=== PATIENT | male | born 1955 | race Caucasian/White ===

== ENCOUNTER 2017-12-13 09:19 | Emergency (ER) | payer OTHER, SELFPAY ==
[2017-12-13 09:20] VITALS: BP 153/97; PULSE 84; RESP 16; TEMP 37.3; O2SAT 95; BMI 16.3
--- NOTE | 2017-12-13 09:48 | RAD_ITS ---
STUDY: X-RAY CHEST REASON FOR EXAM: Male, 62 years old. Cough and tachycardia. TECHNIQUE: PA and lateral views of the chest. COMPARISON: None. FINDINGS: EKG electrodes are seen. Hyperinflation. Decreased bilateral bronchovascular markings suggestive of emphysematous changes. There is no demonstrated pleural abnormality. Normal size heart. Normal mediastinum and dennis. Normal visualized pulmonary arteries. Normal visualized aortic arch and descending thoracic aorta. There are degenerative changes of the visualized thoracic spine. Healed left rib fractures. There is no demonstrated abnormality of the visualized soft tissue structures of the upper abdomen. RAD/Chest PA and Lateral IMPRESSION: Hyperinflation. No acute infiltrate is seen. Electronically Signed: Sajan Samuels MD at 10:44 EST Tel [phone], Service support ,
--- NOTE | 2017-12-13 09:50 | US_ITS ---
STUDY: SCROTUM ULTRASOUND REASON FOR EXAM: Male, 62 years old. Swelling in the left testicle. TECHNIQUE: Ultrasound evaluation of the scrotum was performed with color Doppler and static williamson-scale imaging. COMPARISON: None. FINDINGS: RIGHT TESTICLE INTRATESTICULAR: There is a normal size of the right testicle. The right testicle measures 4.7 cm x 2.7 cm x 2.2 cm. There is a homogenous echotexture. There is normal arterial and normal venous vascularity. There is no demonstrated right testicular mass or cyst. EXTRATESTICULAR: The epididymis is normal in size. The epididymis head measures 0.8 cm x 1.0 cm x 0.7 cm. There is normal vascularity of the epididymis. There is no demonstrated epididymal cystic structure. There is no demonstrated hydrocele. There is no demonstrated varicocele. There is no demonstrated extratesticular mass or cyst. LEFT TESTICLE INTRATESTICULAR: There is a normal size of the left testicle. The left testicle measures 5.3 cm x 2.7 cm x 2.0 cm. There is a homogenous echotexture. There is normal arterial and normal venous vascularity. There is no demonstrated left testicular mass or cyst. EXTRATESTICULAR: The epididymis is normal in size. The epididymis head measures 1.1 cm. There is normal vascularity of the epididymis. There is a well-defined cystic structure within the epididymis, without internal echoes, consistent with an epididymal cyst. This measures 1.1 cm x 1 cm x 0.7 cm. There is a large hydrocele. There is no demonstrated varicocele. There is no demonstrated extratesticular mass or cyst. US/Testicular with Arterial Flow IMPRESSION: Large left hydrocele. Small cysts in the left epididymis. Electronically Signed: Sajan Samuels MD at 11:32 EST Tel [phone], Service support ,
--- NOTE | 2017-12-13 09:58 | EKG12_ITS ---
Test Reason : SOB Blood Pressure : / mmHG Vent. Rate : 071 BPM Atrial Rate : 071 BPM P-R Int : 152 ms QRS Dur : 108 ms QT Int : 366 ms P-R-T Axes : 077 107 067 degrees QTc Int : 397 ms Normal sinus rhythm J point elevation, consider pericarditis Abnormal ECG Confirmed by SUELLEN KNIGHT ([id number]), video effects editor CARLOS GONZALES ([id number]) on 12/17/2017 1:13:13 PM Referred By: KAE Confirmed By:SUELLEN KNIGHT
--- NOTE | 2017-12-13 09:59 | ED.VISSUMM ---
- ER Visit Summary Date of Service: 12/13/17 Chief Complaint: Elevated blood sugar History of Present Illness: The patient is a 62 M who states that last week he was feeling poorly with symptomatology of cough myalgias and fatigue. He states over the weekend it worsened and he had to come home from work on Saturday. Today evening had nausea vomiting. Saturday he went to an urgent care had blood work and a chest x-ray performed but did not get the results and was placed on prednisone and albuterol. Patient went to a follow-up appointment today with nurse practitioner and was told his blood sugar was greater than 400 and he needed to come to the emergency department. He notes left scrotal swelling for the past several months. He denies pain with it. He notes a 25 pound weight loss over the same timeframe. He notes polyuria polydipsia. Notes constipation over the past few days. Unknown fever. Physical Examination: Blood pressure 153/97 temperature 99.2 heart rate of 84 respirations are 16 pulse ox is 95% on room air Gen: Well-nourished well-developed patient appears fatigued and frail Head: Normocephalic atraumatic Eyes: Perrl EOMI ENT: TMs clear no rhinorrhea dry mucous membranes Neck: Supple no lymphadenopathy no JVD nontender CVS: Regular rate rhythm no murmurs normal S1-S2 Respiratory: No distress clear to auscultation bilaterally chest nontender Abdomen: Soft nontender nondistended normal bowel sounds no masses : There is left scrotal swelling. It is nontender. There is no obvious inguinal hernia. Back: Nontender Extremity: Nontender no edema Skin: Normal color no rash Neuro: alert orientated ?3 CN II-XII intact normal strength sensation reflexes gait cerebellar Psych: Normal affect normal mood Test Results: Count is elevated 20 point H which I suspect is partially due to prednisone. Glucose is 317. No anion gap and ketones are negative. Lactic acid 1.4. Troponin negative. EKG sinus at a rate of 71. Chest x-ray showed chronic changes and COPD. Scrotal ultrasound demonstrates a large left hydrocele. CT of the chest no acute disease. Emergency Department Course and Treatment: Repeat temp shows the patient to be afebrile. Patient will be discharged home. I did work with him to help arrange for early follow-up. I spoke with Dr. Dada Kulkarni is next on the no doc list. They have arranged to see the patient on Saturday. He has been resting comfortably. Patient will be started on metformin and Precose. He is to continue his antibiotic as an inhaler. I will add in doxycycline. He will need to also follow-up with urology. Impression: 1. COPD exacerbation 2. Type 2 diabetes mellitus 3. Left hydrocele This note was generated with [employer] dictation software. It may contain incorrect words, spelling, and punctuation that were not noted in review of the chart prior to signing ED Disposition - Plan for ED Patient: Disposition: Home or Assisted Living Chief Complaint: Hyperglycemia Instructions: ED Hyperglycemia Diabetic, ED Hydrocele Type Not Specified Prescriptions: Doxycycline 100 mg PO BID #20 cap Metformin HCl 500 mg PO BID #90 tab Acarbose [Precose] 25 mg PO TID #90 tab Referrals: Dada Kulkarni MD [STAFF PHYSICIAN] - Keep [facility] appointment Care Physician,No Primary [Primary Care Provider] - Leander Arce MD [STAFF PHYSICIAN] - (Call today to arrange urology follow-up for the hydrocele and your scrotum)
[2017-12-13] MEDS: 0.9% Normal Saline 1,000 ML 1000 ML IV (10:12)
[2017-12-13 10:20] LABS: Absolute Lymphocyte Count 1.41 X10^3/ul (0.83-4.51); Absolute Neutrophil Count 18.1 X10^3/uL (2.0-7.7); Basophil# 0.03 X10^3/uL; Basophil% 0.1 % (0-1); Eosinophil# 0.02 X10^3/uL; Eosinophils% 0.1 % (0-5); Hematocrit 44.4 % (40-54); Lymphocyte # 1.41 X10^3/ul (4.0); Lymphocyte % 6.8 % (19-41); Mean Corp Hgb Conc 33.8 g/gl (32-36); Mean Corpuscular Hgb 32.1 pg (27.0-32.0); Mean Corpuscular Volume 94.9 fL (80-94); Mean Platelet Vol. 9.9 fl (6.2-12.0); Monocyte# 0.97 X10^3/uL; Monocyte% 4.7 % (0-10); Neutrophil # 18.12 X10^3/uL (2.7-7.7); Neutrophil % 87.1 % (47-70); Platelet Count 413 K/mm3 (150-450); RBC Distribution Width CV 13.8 % (11.6-14.6); RBC Distribution Width SD 47.1 fl (35.1-43.9); Red Blood Count 4.68 M/mm3 (4.6-6.2); White Blood Count 20.8 K/mm3 (4.4-11.0)
[2017-12-13 10:21] LABS: Differential Indicated SCAN CRITERIA MET; POSITIVE COUNT NO; POSITIVE DIFFERENTIAL NO; POSITIVE MORPHOLOGY YES
[2017-12-13 10:28] LABS: Prothrombin Time (Protime)PT. 12.9 SECONDS (11.7-14.9)
[2017-12-13 10:29] LABS: Partial Thromboplast Time 30.3 Seconds (24.1-36.2)
[2017-12-13 10:37] LABS: ALB/GLOB Ratio 0.5 RATIO (0.9-2.4); AST(SGOT) 7 U/L (15-37); Alanine Aminotransfer ALT/SGPT 17 U/L (16-61); Albumin, Serum 2.8 g/dL (3.2-5.0); Alkaline Phosphatase 118 U/L (45-117); Anion Gap 7 (5-15); BUN 22 mg/dL (7-18); BUN/Creat Ratio 21.8 RATIO (10-20); Calcium,Total 9.4 mg/dL (8.5-10.1); Chloride 94 mmol/L (98-107); Creatinine, Serum 1.01 mg/dL (0.70-1.30); EST Glomerular Filtration Rate 80 mL/min (>60); Est Glom Filt Rate - Afr Amer 97 mL/min (>60); Estimated Creatinine Clearance 56.89 ml/min; Globulin 5.1 g/dL (2.2-4.2); Glucose 317 mg/dL (74-106); Lipase 329 U/L (73-393); Potassium 4.2 mmol/L (3.5-5.1); Protein, Total 7.9 g/dL (6.4-8.2); Sodium Level 133 mmol/L (136-145)
[2017-12-13 10:44] LABS: Lactic Acid 1.4 mmol/L (0.4-2.0)
[2017-12-13 11:06] LABS: Reactive Lymphocyte RARE
--- NOTE | 2017-12-13 11:38 | CT_ITS ---
STUDY: CTA CHEST REASON FOR EXAM: Male, 62 years old. Shortness of breath. Newly diagnosed diabetes. RADIATION DOSAGE (If Supplied By Facility): CTDIvol = ( 6.75 ) mGy, DLP = ( 199.34 ) mGycm TECHNIQUE: The examination was performed with the intravenous administration of 75CC ml of Isovue 370 contrast material. Post-processing of the angiographic images was performed, with multiplanar reformation and 3D reconstruction. Individualized dose optimization techniques were used for this CT. COMPARISON: None. FINDINGS: Normal enhancement of the main pulmonary artery and right and left pulmonary arteries. Normal enhancement of the bilateral peripheral pulmonary arteries. There is no demonstrated pulmonary embolism. There is atherosclerotic calcification of the aortic arch with tortuosity. There is no demonstrated aortic dissection. There are calcifications of the coronary arteries. Normal mediastinum. Normal hilar regions. Normal visualized trachea and bronchi. Hyperinflation. Decreased bronchovascular markings suggestive of a emphysematous changes. Minimal increased markings in the posterior medial segment of the right lower lobe suggestive of scarring. Normal pleura. Normal chest wall structures. There are degenerative changes of thoracic spine. Multiple hypodense nodular masses are seen in the spleen. These are not typical cysts. Clinical correlation is recommended. CT/CTA Chest W/WO Contrast IMPRESSION: Hyperinflation and emphysematous changes. Findings suggest some mild scarring at the right lung base. Multiple hypodense nodular seen in the spleen. Clinical correlation is recommended. Electronically Signed: Sajan Samuels MD at 13:17 EST Tel [phone], Service support ,
[2017-12-13] MEDS: 0.9% Normal Saline 1,000 ML 150 ML IV (11:57)
[2017-12-13 12:05] LABS: Bacteria 0 SEEN /hpf (None Seen); Mucous, Urine 0 SEEN /hpf (<or=2+); Red Blood Cells-Urine 0 SEEN /hpf (0-5); Squamous Epithelial Cells - UA 0 SEEN /hpf (0-5); White Blood Cells 0 SEEN /hpf (0-5)
[2017-12-13 12:24] VITALS: BP 157/87; PULSE 68; RESP 21; O2SAT 98
[2017-12-13 12:27] LABS: Color, Urine Yellow (Yellow); Glucose, Dipstick 1000 mg/dl (Normal); Ketone-Dipstick 5 mg/dl (Negative); Leukocyte Esterase-Dipstick Negative /ul (Negative); Nitrite-Dipstick Negative (Negative); Occult Blood-Urine Negative /ul (Negative); Protein-Dipstick 30 mg/dl (Negative); Specific Gravity, Urine 1.015 (1.002-1.030); Urine Bilirubin Dipstick Negative (Negative); Urine Clarity Clear (Clear); Urine Urobilinogen Normal (Normal)
[2017-12-13 15:21] VITALS: BP 150/94; PULSE 69; RESP 18; O2SAT 95
== END 2017-12-13 15:31 | disposition home or self-care (01) ==
PROVIDERS: Emergency Provider Emergency Medicine
DX: E11.9 Type 2 diabetes mellitus without complications (principal); N43.3 Hydrocele, unspecified; J44.1 Chronic obstructive pulmonary disease with (acute) exacerbation; Z72.0 Tobacco use; Z79.51 Long term (current) use of inhaled steroids; Z79.52 Long term (current) use of systemic steroids
CPT/HCPCS: 71046; 71275; 76870; 80053; 81001; 82009; 83605; 83690; 83735; 84484; 85025; 85610; 85730; 87804; 93005; 93976; 96360; 96361; 99283; J7030; Q9967

== ENCOUNTER → 2017-12-16 15:51 | Outpatient (CLI) | payer OTHER, SELFPAY ==
[2017-12-16 17:46] LABS: Absolute Neutrophil Count 10.5 X10^3/uL (2.0-7.7); Basophil# 0.04 X10^3/uL; Basophil% 0.3 % (0-1); Eosinophil# 0.15 X10^3/uL; Eosinophils% 1.1 % (0-5); Hematocrit 44.9 % (40-54); Hemoglobin 14.8 g/dl (13.0-16.5); Lymphocyte % 14.4 % (19-41); Mean Corpuscular Hgb 31.6 pg (27.0-32.0); Mean Corpuscular Volume 95.9 fL (80-94); Mean Platelet Vol. 10.8 fl (6.2-12.0); Monocyte# 1.06 X10^3/uL; Monocyte% 7.6 % (0-10); Neutrophil # 10.52 X10^3/uL (2.7-7.7); Platelet Count 384 K/mm3 (150-450); RBC Distribution Width SD 49.3 fl (35.1-43.9); Red Blood Count 4.68 M/mm3 (4.6-6.2); White Blood Count 13.9 K/mm3 (4.4-11.0)
[2017-12-16 17:56] LABS: Hemoglobin A1c 8.6 % (4.2-6.3); POSITIVE COUNT NO; POSITIVE DIFFERENTIAL NO; POSITIVE MORPHOLOGY NO
[2017-12-16 18:09] LABS: ALB/GLOB Ratio 0.6 RATIO (0.9-2.4); AST(SGOT) 13 U/L (15-37); Alanine Aminotransfer ALT/SGPT 19 U/L (16-61); Albumin, Serum 2.9 g/dL (3.2-5.0); Alkaline Phosphatase 114 U/L (45-117); Anion Gap 8 (5-15); BUN 25 mg/dL (7-18); BUN/Creat Ratio 25.6 RATIO (10-20); Calcium,Total 9.2 mg/dL (8.5-10.1); Chloride 94 mmol/L (98-107); Creatinine, Serum 0.98 mg/dL (0.70-1.30); EST Glomerular Filtration Rate 83 mL/min (>60); Est Glom Filt Rate - Afr Amer 101 mL/min (>60); Globulin 4.6 g/dL (2.2-4.2); Glucose 187 mg/dL (74-106); Potassium 4.1 mmol/L (3.5-5.1); Protein, Total 7.5 g/dL (6.4-8.2); Sodium Level 132 mmol/L (136-145); Thyroid Stim Hormone (TSH) 3.01 uIU/mL (0.358-3.74)
[2017-12-16 18:23] LABS: Erythrocyte Sedimentation Rate 13 mm/hr (0-20)
[2017-12-18 11:45] LABS: AFP, Tumor Marker 4.7 ng/mL (0.0-8.3)
== END ==
PROVIDERS: Family Provider Family Medicine; PCP Family Medicine; Visit Provider Family Medicine
DX: E11.9 Type 2 diabetes mellitus without complications (principal); R16.1 Splenomegaly, not elsewhere classified
CPT/HCPCS: 36415; 80053; 82105; 83036; 84443; 85025; 85652

== ENCOUNTER → 2017-12-23 15:41 | Outpatient (CLI) | payer OTHER, SELFPAY ==
--- NOTE | 2017-12-23 15:50 | VDLE_ITS ---
Reason For Study: LEG PAIN AND SWELLING RIGHT LEFT GSV is normal. CFV is compressible, spontaneous, phasic, CFV is compressible, spontaneous, phasic, competent, and demonstrates normal competent and demonstrates normal augmentation. augmentation. FV is compressible, spontaneous, phasic, competent and demonstrates normal augmentation. POP V is compressible, spontaneous, phasic, competent and demonstrates normal augmentation. T/P Trunk is compressible. PTV is compressible. RT PerV is compressible. Procedure Exam performed in department. A preliminary report was called and/or faxed to Dr. Kulkarni. Interpretation Summary Deep veins of the right lower extremity are patent and compressible segmentally. There is no evidence of right lower extremity deep vein thrombosis. Valvular competence appears intact within the proximal deep venous system on the right . The right greater saphenous vein appears patent and compressible segmentally. Ordering Physician: Dada Kulkarni Referring Physician: Dada Kulkarni Performed By: Judy Church RVT
== END ==
PROVIDERS: Family Provider Family Medicine; PCP Family Medicine; Visit Provider Family Medicine
DX: I73.9 Peripheral vascular disease, unspecified (principal)
CPT/HCPCS: 93971

== ENCOUNTER → 2017-12-24 12:34 | Outpatient (CLI) | payer OTHER, SELFPAY ==
[2017-12-24 15:11] LABS: ALB/GLOB Ratio 0.5 RATIO (0.9-2.4); AST(SGOT) 13 U/L (15-37); Alanine Aminotransfer ALT/SGPT 12 U/L (16-61); Albumin, Serum 2.6 g/dL (3.2-5.0); Alkaline Phosphatase 94 U/L (45-117); Anion Gap 9 (5-15); BUN 17 mg/dL (7-18); BUN/Creat Ratio 20.2 RATIO (10-20); Calcium,Total 9.4 mg/dL (8.5-10.1); Chloride 96 mmol/L (98-107); Creatinine, Serum 0.84 mg/dL (0.70-1.30); EST Glomerular Filtration Rate 99 mL/min (>60); Est Glom Filt Rate - Afr Amer 120 mL/min (>60); Globulin 5.3 g/dL (2.2-4.2); Glucose 153 mg/dL (74-106); Lipase 239 U/L (73-393); PSA,Total - Annual Screen 1.13 ng/mL (0.00-4.00); Protein, Total 7.9 g/dL (6.4-8.2); Sodium Level 134 mmol/L (136-145)
[2017-12-24 15:39] LABS: Absolute Lymphocyte Count 1.41 X10^3/ul (0.83-4.51); Absolute Neutrophil Count 7.4 X10^3/uL (2.0-7.7); Basophil# 0.02 X10^3/uL; Basophil% 0.2 % (0-1); Eosinophil# 0.05 X10^3/uL; Eosinophils% 0.5 % (0-5); Hematocrit 40.7 % (40-54); Hemoglobin 13.4 g/dl (13.0-16.5); Lymphocyte # 1.41 X10^3/ul (4.0); Lymphocyte % 14.8 % (19-41); Mean Corp Hgb Conc 32.9 g/gl (32-36); Mean Corpuscular Hgb 31.8 pg (27.0-32.0); Mean Corpuscular Volume 96.7 fL (80-94); Monocyte# 0.64 X10^3/uL; Monocyte% 6.7 % (0-10); Neutrophil # 7.42 X10^3/uL (2.7-7.7); Neutrophil % 77.7 % (47-70); Platelet Count 329 K/mm3 (150-450); RBC Distribution Width CV 13.6 % (11.6-14.6); RBC Distribution Width SD 48.3 fl (35.1-43.9); Red Blood Count 4.21 M/mm3 (4.6-6.2); White Blood Count 9.6 K/mm3 (4.4-11.0)
[2017-12-24 15:48] LABS: POSITIVE COUNT NO; POSITIVE DIFFERENTIAL NO; POSITIVE MORPHOLOGY NO
[2017-12-26 09:23] LABS: Carcinoembryonic Antigen 5.6 ng/mL (0.0-4.7)
== END ==
PROVIDERS: Family Provider Family Medicine; PCP Family Medicine; Visit Provider Family Medicine
DX: R10.30 Lower abdominal pain, unspecified (principal)
CPT/HCPCS: 36415; 80053; 82378; 83690; 84153; 85025; 86140; G0103

== ENCOUNTER 2017-12-30 13:35 | Emergency (ER) | payer OTHER, SELFPAY ==
[2017-12-30 13:37] VITALS: BP 136/84; PULSE 103; RESP 20; TEMP 35.1; O2SAT 95; BMI 16.7
--- NOTE | 2017-12-30 14:48 | CT_ITS ---
STUDY: CT ABDOMEN AND PELVIS WITH CONTRAST REASON FOR EXAM: Male, 62 years old. A nausea vomiting one week left testicular swelling RADIATION DOSAGE (If Supplied By Facility): CTDIvol = ( 8.79 ) mGy, DLP = ( 579.44 ) mGycm TECHNIQUE: Transaxial images were obtained from the dome of the diaphragm to the symphysis pubis without oral contrast. 100 ml of Isovue 300 contrast was administered. Sagittal and coronal images were reconstructed. Individualized dose optimization techniques were used for this CT. COMPARISON: December 13 2017 left testicular scrotal ultrasound. FINDINGS: The visualized lung bases are unremarkable. The visualized portions of the heart are within normal limits. There is a small well-circumscribed cystic structure within the left hepatic lobe measuring 7.7 mm. There is mild wall thickening of the gallbladder or pericholecystic fluid. Stones are not definitively seen. There is a distended appearance of the common duct measuring 9.7 mm abnormal for patient's age. There is a partially exophytic cystic structure in the spleen appears to be partially calcified between the spleen and the kidney measuring 2.1 x 2.4 cm stable since prior study. There is stable cystic structures within the spleen measuring up to 2.8 x 2.1 cm. Normal pancreas. There is mild distention of the pancreatic duct. This is partially seen on the prior study CT angiogram chest. Normal right kidney. Normal left kidney. There is a minimal hiatal hernia. Stomach is relatively fluid filled. There is minimal wall thickening of the stomach allowing for peristalsis. There is a mildly thick-walled compressed appearance of the duodenum. There is abundant stool in the colon from the cecum to the rectum. The appendix is visualized and appears normal. Aorta is partially calcified. Normal inferior vena cava. Normal retroperitoneum. Normal urinary bladder. There is partial calcification of borderline enlargement of the prostate. A large amount of fluid within the left side of the scrotum measuring at least 9.3 x 7.6 cm. This was also seen on the recent prior study. There is no significant fluid tracking in the left inguinal canal. Normal abdominal wall. There is degenerative change in the thoracolumbar spine most significant at the level of L3-L4 L4-L5 and L5-S1 where there is broad disc bulge and moderate neural foraminal narrowing. There is mild central stenosis. CT/Abdomen/Pelvis WITH Contrast IMPRESSION: There is fluid adjacent to the gallbladder with wall thickening. Common duct distention up to 9.3 mm. Consider follow-up ultrasound to exclude cholecystitis. Stable multiple splenic cysts. Which can be associated with benign occurrence possible history of trauma which is thought to be less likely or due to prior history of infection. Benign-appearing hepatic cyst Significant constipation. Visualized large hydrocele on the left. No visualized appendicitis. Degenerative change throughout the lumbar spine. Electronically Signed: Mercedes Pickard MD at 17:10 EDT Tel , Service support ,
[2017-12-30 15:09] LABS: Absolute Lymphocyte Count 1.86 X10^3/ul (0.83-4.51); Absolute Neutrophil Count 10.2 X10^3/uL (2.0-7.7); Basophil# 0.03 X10^3/uL; Basophil% 0.2 % (0-1); Eosinophil# 0.18 X10^3/uL; Eosinophils% 1.3 % (0-5); Hematocrit 35.3 % (40-54); Lymphocyte # 1.86 X10^3/ul (4.0); Lymphocyte % 13.8 % (19-41); Mean Corpuscular Hgb 32.5 pg (27.0-32.0); Mean Corpuscular Volume 95.7 fL (80-94); Mean Platelet Vol. 9.7 fl (6.2-12.0); Monocyte# 1.08 X10^3/uL; Neutrophil # 10.15 X10^3/uL (2.7-7.7); Neutrophil % 75.7 % (47-70); POSITIVE COUNT NO; POSITIVE DIFFERENTIAL NO; POSITIVE MORPHOLOGY NO; Platelet Count 349 K/mm3 (150-450); RBC Distribution Width CV 13.2 % (11.6-14.6); RBC Distribution Width SD 44.4 fl (35.1-43.9); Red Blood Count 3.69 M/mm3 (4.6-6.2); White Blood Count 13.4 K/mm3 (4.4-11.0)
[2017-12-30] MEDS: 0.9% Normal Saline 1,000 ML 125 ML IV (15:12)
[2017-12-30 15:27] LABS: ALB/GLOB Ratio 0.6 RATIO (0.9-2.4); AST(SGOT) 10 U/L (15-37); Alanine Aminotransfer ALT/SGPT 12 U/L (16-61); Albumin, Serum 2.6 g/dL (3.2-5.0); Alkaline Phosphatase 83 U/L (45-117); Anion Gap 5 (5-15); BUN 28 mg/dL (7-18); BUN/Creat Ratio 36.6 RATIO (10-20); Calcium,Total 8.4 mg/dL (8.5-10.1); Chloride 95 mmol/L (98-107); Creatinine, Serum 0.76 mg/dL (0.70-1.30); EST Glomerular Filtration Rate 110 mL/min (>60); Est Glom Filt Rate - Afr Amer 133 mL/min (>60); Estimated Creatinine Clearance 79.58 ml/min; Glucose 238 mg/dL (74-106); Potassium 3.8 mmol/L (3.5-5.1); Protein, Total 6.6 g/dL (6.4-8.2); Sodium Level 131 mmol/L (136-145)
[2017-12-30 15:29] LABS: Lactic Acid 1.2 mmol/L (0.4-2.0)
--- NOTE | 2017-12-30 15:56 | ED.VISSUMM ---
- ER Visit Summary Date of Service: 12/30/17 Chief Complaint: [Abdominal pain] History of Present Illness: The patient is a 62 M [presents to the emergency department with abdominal pain that he has had off-and-on for the last 2 weeks. Patient had an episode of nausea and vomiting this morning. He describes pain in his right back and right lower quadrant. Patient is also had some swelling in his left scrotum for some time he was told it was a hydrocele. Patient does have discomfort to that area as well. Patient denies any fevers. He denies any diarrhea. He denies any blood in his stool or black tarry stools. Patient's last bowel movement was yesterday which was small amount and prior to that may be admitted for close to a week since his last bowel movement.] Physical Examination: [HEENT-PERRLA, EOMI. Cranial nerves II through XII grossly intact. TMs clear. Mucous membranes moist. No adenopathy. Cardiovascular-regular rate and rhythm without murmur or ectopy Lungs-clear to auscultation, chest wall stable without crepitus or subcu emphysema Abdomen-normoactive bowel sounds, soft patient has tenderness to the right lower quadrant with some guarding. There is no rebound, rigidity or perineal signs. exam-patient is not circumcised, scrotum is enlarged and patient has tenderness to palpation of the left testicle and scrotum. Patient has no evidence for torsion. Extremities-intact ?4, normal range of motion, normal pulses, atraumatic] Test Results: [CBC with differential obtained showed a white blood cell count of 13.4, hemoglobin 12, hematocrit 35, platelets 349. Chemistries were unremarkable. LFTs were unremarkable. Lactate was 1.2. CT scan abdomen pelvis ordered and pending] Emergency Department Course and Treatment: [Patient case will be turned over the evening physician awaiting CT results and final disposition] Treatment Plan: [Pending] Disposition: [Pending] Impression: [Abdominal pain] This note was generated with [employer] dictation software. It may contain incorrect words, spelling, and punctuation that were not noted in review of the chart prior to signing ED Disposition - Plan for ED Patient: Chief Complaint: Abd Pain Referrals: Dada Kulkarni MD [Primary Care Provider] -
--- NOTE | 2017-12-30 16:00 | ED.DCSUM_ITS ---
- ER Visit Summary Date of Service: 12/30/17 Chief Complaint: [Abdominal pain] History of Present Illness: The patient is a 62 M [presents to the emergency department with abdominal pain that he has had off-and-on for the last 2 weeks. Patient had an episode of nausea and vomiting this morning. He describes pain in his right back and right lower quadrant. Patient is also had some swelling in his left scrotum for some time he was told it was a hydrocele. Patient does have discomfort to that area as well. Patient denies any fevers. He denies any diarrhea. He denies any blood in his stool or black tarry stools. Patient's last bowel movement was yesterday which was small amount and prior to that may be admitted for close to a week since his last bowel movement. ] Physical Examination: [HEENT-PERRLA, EOMI. Cranial nerves II through XII grossly intact. TMs clear. Mucous membranes moist. No adenopathy. Cardiovascular-regular rate and rhythm without murmur or ectopy Lungs-clear to auscultation, chest wall stable without crepitus or subcu emphysema Abdomen-normoactive bowel sounds, soft patient has tenderness to the right lower quadrant with some guarding. There is no rebound, rigidity or perineal signs. exam-patient is not circumcised, scrotum is enlarged and patient has tenderness to palpation of the left testicle and scrotum. Patient has no evidence for torsion. Extremities-intact ?4, normal range of motion, normal pulses, atraumatic] Test Results: [CBC with differential obtained showed a white blood cell count of 13.4, hemoglobin 12, hematocrit 35, platelets 349. Chemistries were unremarkable. LFTs were unremarkable. Lactate was 1.2. CT scan abdomen pelvis ordered and pending] Emergency Department Course and Treatment: [Patient case will be turned over the evening physician awaiting CT results and final disposition] Treatment Plan: [Pending] Disposition: [Pending] Impression: [Abdominal pain] This note was generated with [employer] dictation software. It may contain incorrect words, spelling, and punctuation that were not noted in review of the chart prior to signing ED Disposition - Plan for ED Patient: Chief Complaint: Abd Pain Referrals: Dada Kulkarni MD [Primary Care Provider] -
[2017-12-30 16:04] LABS: Bacteria 0 SEEN /hpf (None Seen); Mucous, Urine 0 SEEN /hpf (<or=2+); Squamous Epithelial Cells - UA 0 SEEN /hpf (0-5); White Blood Cells 0 SEEN /hpf (0-5)
[2017-12-30 16:19] LABS: Color, Urine Yellow (Yellow); Glucose, Dipstick 100 mg/dl (Normal); Ketone-Dipstick 15 mg/dl (Negative); Leukocyte Esterase-Dipstick 25 /ul (Negative); Nitrite-Dipstick Negative (Negative); Occult Blood-Urine Negative /ul (Negative); Protein-Dipstick 30 mg/dl (Negative); Urine Bilirubin Dipstick Negative (Negative); Urine Clarity Clear (Clear); Urine Urobilinogen 1 mg/dl (Normal)
[2017-12-30 16:27] LABS: Red Blood Cells-Urine 0-5 SEEN /hpf (0-5)
--- NOTE | 2017-12-30 17:42 | US_ITS ---
STUDY: ABDOMINAL ULTRASOUND - RIGHT UPPER QUADRANT REASON FOR VISIT: Male, 62 years old. Right upper quadrant pain TECHNIQUE: Ultrasound evaluation of the right upper quadrant was performed with real-time and static williamson-scale imaging. TECHNICAL QUALITY: Adequate. COMPARISON: None. FINDINGS: Liver: The liver measures 17.3 cm. There is normal echogenicity of the liver. The bile ducts are within normal limits. There is hepatic color flow. The direction of portal flow is hepatopetal. There is a 10 mm left hepatic cyst. Gallbladder: Normal distended gallbladder. The gallbladder wall measures 3 mm. There is a negative sonographic Rosales's sign. There is no pericholecystic fluid. There are no gallstones. Possible trace gallbladder sludge. Common Bile Duct (C.B.D.): The common bile duct measures 10 mm. Pancreas: Limited of the pancreas. Right Kidney: Normal size of the right kidney. The right kidney measures 11.2 x 5.3 x 6.1 cm. Normal renal cortex. The right cortex measures 2.1 cm. There is no demonstrated renal mass or cyst. There is no right hydronephrosis. US/Gallbladder IMPRESSION: Slight gallbladder sludge. Dilated common bile duct. Electronically Signed: Haseeb Church DO at 18:38 EDT Tel [phone], Service support ,
--- NOTE | 2017-12-30 19:04 | ED.DEP ---
ED Disposition - Plan for ED Patient: Chief Complaint: Abd Pain Instructions: ED Abdominal Pain Unkn Cause Male, ED Hydrocele Type Not Specified Referrals: Dada Kulkarni MD [Primary Care Provider] - Delfin Roman MD [STAFF PHYSICIAN] - Leroy Myers MD [STAFF PHYSICIAN] - Leander Arce MD [STAFF PHYSICIAN] - Additional Instructions: Follow up with Dr. Myers and Dr. Roman for your abdominal pain. Follow up with Dr. Arce for testicle swelling and hydrocele.
[2017-12-30 19:12] VITALS: BP 148/84; PULSE 79; RESP 16; O2SAT 96
[2017-12-30] MEDS: HYDROcodone Bitartrate/Apap 5/325 Tablet PO (19:15)
[2017-12-30 19:17] VITALS: BP 148/84; PULSE 79; RESP 16; O2SAT 96
== END 2017-12-30 19:19 | disposition home or self-care (01) ==
LOC: ED 15:30
PROVIDERS: Emergency Provider Emergency Medicine; Family Provider Family Medicine; PCP Family Medicine
DX: R10.31 Right lower quadrant pain (principal); N43.3 Hydrocele, unspecified; E11.9 Type 2 diabetes mellitus without complications; Z72.0 Tobacco use; Z79.51 Long term (current) use of inhaled steroids; Z79.84 Long term (current) use of oral hypoglycemic drugs; Z79.899 Other long term (current) drug therapy
CPT/HCPCS: 74177; 76705; 80053; 81001; 83605; 85025; 96360; 96361; 99284; J7030; Q9967; A4216

== ENCOUNTER 2018-01-02 10:19 | Outpatient (RCR) | payer OTHER, SELFPAY | END 2018-01-18 23:59 | LOC: DC 10:19 | PROVIDERS: Family Provider Family Medicine; PCP Family Medicine; Visit Provider Family Medicine | DX: E11.9 Type 2 diabetes mellitus without complications (principal); Z71.3 Dietary counseling and surveillance | CPT/HCPCS: G0108 ==

== ENCOUNTER → 2018-01-06 14:15 | Outpatient (CLI) | payer OTHER, SELFPAY ==
--- NOTE | 2018-01-06 14:17 | CT_ITS ---
STUDY: CT ABDOMEN AND PELVIS WITH CONTRAST REASON FOR EXAM: Male, 62 years old. Lower abdominal pain. Left testicular swelling for one month. 20 pound weight loss in 1 month. RADIATION DOSAGE (If Supplied By Facility): CTDIvol = ( 8.63 ) mGy, DLP = ( 377.82 ) mGycm TECHNIQUE: Transaxial images were obtained from the dome of the diaphragm to the symphysis pubis with oral contrast. 100 ml of Isovue 300 contrast was administered. Sagittal and coronal images were reconstructed. Individualized dose optimization techniques were used for this CT. COMPARISON: None. FINDINGS: The lungs are emphysematous changes of the lung bases.. The visualized portions of the heart are within normal limits. Normal liver. Normal gallbladder and extrahepatic biliary system. Multiple hypodensities within the spleen thought to represent cysts. Normal pancreas. Normal bilateral adrenal glands. Normal right kidney. Normal left kidney. Normal visualized stomach. Normal small intestine. Normal colon. The appendix is visualized and appears normal. There is diffuse atherosclerotic calcification of the abdominal aorta, without a demonstrated aneurysm. Normal inferior vena cava. Normal retroperitoneum. The urinary bladder is well distended. There is no mass or filling defect. The prostate is mildly enlarged with central calcifications. Prominent seminal vesicles. There is no pelvic lymphadenopathy. No free air or free fluid is seen within the peritoneal cavity. Normal abdominal wall. There is a massive left sided hydrocele measuring 9.5 x 8 cm in size. There are diffuse degenerative changes of the visualized lumbar spine. CT/Abdomen/Pelvis WITH Contrast IMPRESSION: 1. Massive left hydrocele. 2. Enlarged prostate. 3. Multiple splenic cysts. 4. Degenerative changes of the lumbar spine. 5. Mild emphysematous changes of the lungs. Electronically Signed: Tommy Olmedo DO at 15:08 EDT Tel [phone], Service support ,
== END ==
PROVIDERS: Family Provider Family Medicine; PCP Family Medicine; Visit Provider Family Medicine
DX: R10.30 Lower abdominal pain, unspecified (principal)
CPT/HCPCS: 74177; Q9967

== ENCOUNTER → 2018-01-10 12:54 | Outpatient (CLI) | payer OTHER, SELFPAY ==
[2018-01-10 13:59] LABS: Prothrombin Time (Protime)PT. 13.2 SECONDS (11.7-14.9)
[2018-01-10 14:13] LABS: ALB/GLOB Ratio 0.7 RATIO (0.9-2.4); AST(SGOT) 10 U/L (15-37); Alanine Aminotransfer ALT/SGPT 20 U/L (16-61); Albumin, Serum 3.3 g/dL (3.2-5.0); Alkaline Phosphatase 113 U/L (45-117); Anion Gap 3 (5-15); BUN 10 mg/dL (7-18); BUN/Creat Ratio 11.5 RATIO (10-20); Calcium,Total 9.4 mg/dL (8.5-10.1); Chloride 100 mmol/L (98-107); Creatinine, Serum 0.87 mg/dL (0.70-1.30); EST Glomerular Filtration Rate 95 mL/min (>60); Est Glom Filt Rate - Afr Amer 115 mL/min (>60); Globulin 4.7 g/dL (2.2-4.2); Glucose 117 mg/dL (74-106); Prealbumin 24.9 mg/dL (20.0-40.0); Sodium Level 135 mmol/L (136-145)
[2018-01-10 18:14] LABS: Absolute Lymphocyte Count 1.94 X10^3/ul (0.83-4.51); Absolute Neutrophil Count 8.2 X10^3/uL (2.0-7.7); Basophil# 0.04 X10^3/uL; Basophil% 0.4 % (0-1); Eosinophil# 0.21 X10^3/uL; Eosinophils% 1.9 % (0-5); Hematocrit 40.7 % (40-54); Hemoglobin 12.9 g/dl (13.0-16.5); Lymphocyte # 1.94 X10^3/ul (4.0); Lymphocyte % 17.1 % (19-41); Mean Corp Hgb Conc 31.7 g/gl (32-36); Mean Corpuscular Hgb 31.3 pg (27.0-32.0); Mean Corpuscular Volume 98.8 fL (80-94); Mean Platelet Vol. 10.1 fl (6.2-12.0); Monocyte# 0.79 X10^3/uL; Neutrophil # 8.22 X10^3/uL (2.7-7.7); Neutrophil % 72.4 % (47-70); POSITIVE COUNT NO; POSITIVE DIFFERENTIAL NO; POSITIVE MORPHOLOGY NO; Platelet Count 432 K/mm3 (150-450); RBC Distribution Width CV 14.4 % (11.6-14.6); RBC Distribution Width SD 51.9 fl (35.1-43.9); Red Blood Count 4.12 M/mm3 (4.6-6.2); White Blood Count 11.3 K/mm3 (4.4-11.0)
== END ==
PROVIDERS: Family Provider Family Medicine; PCP Family Medicine; Visit Provider Family Medicine
DX: Z01.818 Encounter for other preprocedural examination (principal); E88.09 Other disorders of plasma-protein metabolism, not elsewhere classified
CPT/HCPCS: 36415; 80053; 84134; 85025; 85610

== ENCOUNTER 2018-01-21 10:25 | Outpatient (RCR) | payer OTHER, SELFPAY | END 2018-02-17 23:59 | LOC: DC 10:25 | PROVIDERS: Family Provider Family Medicine; PCP Family Medicine; Visit Provider Family Medicine | DX: E11.9 Type 2 diabetes mellitus without complications (principal); Z71.3 Dietary counseling and surveillance | CPT/HCPCS: 97802 ==

== ENCOUNTER 2018-01-28 10:15 | Day surgery (SDC) | payer OTHER, SELFPAY ==
--- NOTE | 2018-01-28 | IMM_PTH ---
PATIENT: NAV SMITH LOC: EN U#:[id number] AGE/SX: 62/M ROOM: RE01/28/[address]: Dr. Leroy Myers MD : [id number] BED: DIS: 01/28/2018 SPEC #: [id number] RECD: 01/29/18 10:50 STATUS: KISHORE REQ #: [id number] BETO: 01/28/18 00:[address]: Leroy Myers DEPT: IMMUNOHISTOCHEMISTRY RECD BY: Carola Mcclure ENTERED: 01/29/18 10:51 SP TYPE: IMMUNO OTHR DR: Dr. Dada Kulkarni MD Tissues: B - Stomach, NOS Procedures: H Pylori (initial) PHYSICIAN & INSTITUTION [place] [id number] SPECIMEN INFORMATION: Tissue Source: B ? Antral biopsy Clinical Info: Failure to thrive, weight loss, abdomen pain Specimen Number: [id number] CPT code: 49295 METHODOLOGY: Deparaffinized sections of prefer/formalin-fixed tissue or PAP/DQ stained slides are incubated with monoclonal/polyclonal antibodies/oligonucleotide probes. Localization is made via biotin free immunoperoxidase method. Appropriate controls are performed and reacted as expected. Results on target cell population are indicated in the following table: RESULTS: ANTIBODY / CLONE RESULT Block B H Pylori (polyclonal) negative These tests were developed and their performance characteristics determined by [facility]. They may not have been cleared or approved by the U.[place]. Food and Drug Administration. The FDA has determined that such clearance or approval is not necessary. INTERPRETATION: B. Antral biopsy: Negative for Helicobacter pylori organisms. SJ:norma 01/30/18
[2018-01-28 10:38] VITALS: BP 142/76; PULSE 91; RESP 14; TEMP 36.4; O2SAT 97; BMI 16.8
[2018-01-28 10:51] LABS: Bedside Glucose 94 mg/dL (70-110)
--- NOTE | 2018-01-28 13:02 | OP.PCM_ITS ---
Report of Operation Date of Procedure: 01/28/18 Pre-Operative Diagnosis: failure to thrive, weight loss Post-Operative Diagnosis: duodenitis, mid transverse and sigmoid colon polyp Surgery/Procedure Performed:: EGD with biopsy, Colonoscopy with polypectomy meeting coordinator: None Specimen's removed: antrum, colon polyps Description of Procedure: The patient was brought to the endoscopy suite. Sign in was performed verifying patient, site, planned procedure, critical nursing information, the patient was monitored with cardiac, pulse oximetric, and blood pressure monitoring devices. Monitored anesthetic care was provided for sedation. Following IV sedation and after the oropharynx was sprayed with Cetacaine spray , a video gastroscope was inserted in the oropharynx and advanced down the esophagus without difficulty. The scope was advanced through the stomach, through the pylorus through the duodenum to the proximal jejunum. the jejunum was unremarkable. The second and third portions of the duodenum unremarkable. There was moderate hemorrhagic duodenitis. There was mild to moderate distal gastritis with slight proximal gastritis. The esophagus appeared unremarkable The patient was positioned for colonoscopy. A digital rectal exam was performed which revealed no palpable abnormalities The video colonoscope was inserted and advanced to the cecum as verified by the ileocecal valve, cecal base anatomic features and palpation. there was a smaller sessile polyp in the mid transverse colon and a larger sessile polyp in the distal sigmoid colon. These were removed with snare polypectomy. There were a few small diverticula. Sigmoid region. Otherwise, the colon was unremarkable. The endoscope was retroflexed in the rectum appeared unremarkable. The patient tolerated the procedure well and was brought to recovery in stable condition. the patient was discharged with instructions. Start Prilosec 40 mg twice a day and follow up with Barb Hayes in one week.
--- NOTE | 2018-01-28 13:18 | COLBX_PTH ---
PATIENT: NAV SMITH LOC: EN U#:[id number] AGE/SX: 62/M ROOM: RE01/28/[address]: Dr. Leroy Myers MD : 1955 BED: DIS: 01/28/2018 SPEC #: [id number] RECD: 01/28/18 14:47 STATUS: KISHORE NALLELY #: [id number] BETO: 01/28/18 13:[address]: Leroy Myers DEPT: SURGICAL PATHOLOGY RECD BY: Lorena Mcmillan ENTERED: 01/28/18 14:57 SP TYPE: COLON BX OTHR DR: Dr. Dada Kulkarni MD Tissues: A - Duodenum, NOS B - Gastric mucous membrane C - Transverse colon D - Sigmoid colon biopsy Procedures: Surgery Specimen Level IV HEADER OPERATION: EGD, colonoscopy PRE-OP DIAGNOSIS: Failure to thrive, weight loss, abdomen pain TISSUE SUBMITTED: A ? Duodenal biopsy, B ? Antral biopsy, C ? Transverse colon polyp, D ? Rectosigmoid polyp at 20 cm MICROSCOPIC DIAGNOSIS A. Duodenal biopsy: Fragment of duodenal mucosa with Alyssa gland hyperplasia. B. Antral biopsy: Mild gastritis. See microscopic description and comment. C. Transverse colon polyp, biopsy: Tubular adenoma. D. Rectosigmoid polyp at 20 cm, biopsy: Tubular adenoma. SJ:noram 01/29/18 COMMENT B. The results of immunohistochemistry for Helicobacter pylori will be reported separately ([id number]). MICROSCOPIC DESCRIPTION Slides are reviewed. B. The specimen shows fragments of gastric mucosa with chronic inflammatory cell infiltrates in the lamina propria consisting of lymphocytes and plasma cells, consistent with mild chronic gastritis. A minute fragment of duodenal mucosa is also noted. GROSS DESCRIPTION A - Received in fixative is one container labeled with the patient's name and designated duodenal biopsy. The specimen consists of one irregular fragment of light mayorga soft tissue that measures 0.3 x 0.1 x 0.1 cm. The specimen is totally submitted in one cassette. B - Received in fixative is one container labeled with the patient's name and designated antral biopsy. The specimen consists of two irregular fragments of light mayorga soft tissue that in aggregate measure 0.3 x 0.3 x 0.1 cm. The specimen is totally submitted in one cassette. C - Received in fixative is one container labeled with the patient's name and designated transverse colon polyp. The specimen consists of one irregular fragment of light mayorga soft tissue that measures 0.3 x 0.3 x 0.1 cm. The specimen is totally submitted in one cassette. D - Received in fixative is one container labeled with the patient's name and designated rectosigmoid polyp. The specimen consists of one irregular fragment of light mayorga soft tissue that measures 0.6 x 0.3 x 0.2 cm. The specimen is totally submitted in one cassette. / AM:norma 01/28/18 TC:1 CPT: 83669 x4
[2018-01-28 13:52] VITALS: BP 104/78; BP 142/76; PULSE 78; RESP 16; TEMP 37; O2SAT 99
[2018-01-28 13:55] VITALS: BP 119/84; BP 142/76; PULSE 77; RESP 16; O2SAT 98
[2018-01-28 14:00] VITALS: BP 137/81; BP 142/76; PULSE 77; RESP 16; O2SAT 98
[2018-01-28 14:05] VITALS: BP 133/99; BP 142/76; PULSE 77; RESP 16; TEMP 36.6; O2SAT 99
[2018-01-28 14:43] VITALS: BP 142/76
== END 2018-01-28 14:44 | disposition home or self-care (01) ==
LOC: EN 10:15 → AC 10:16
PROVIDERS: Family Provider Family Medicine; PCP Family Medicine; Visit Provider Surgery
PROC: 0DJD8ZZ Inspection of Lower Intestinal Tract, Via Natural or Artificial Opening Endoscopic (ICD-10-PCS; CPT 45378; principal; 2018-01-28 11:25)
DX: D12.3 Benign neoplasm of transverse colon (principal); D12.7 Benign neoplasm of rectosigmoid junction; K29.81 Duodenitis with bleeding; K29.70 Gastritis, unspecified, without bleeding; K57.30 Diverticulosis of large intestine without perforation or abscess without bleeding; R63.4 Abnormal weight loss; J44.9 Chronic obstructive pulmonary disease, unspecified; E11.9 Type 2 diabetes mellitus without complications; F17.210 Nicotine dependence, cigarettes, uncomplicated; Z68.1 Body mass index [BMI] 19.9 or less, adult; Z79.84 Long term (current) use of oral hypoglycemic drugs
CPT/HCPCS: 43239; 45380; 82962; 88305; 88342; J7120

== ENCOUNTER 2018-01-31 05:31 | Day surgery (SDC) | payer OTHER, SELFPAY ==
[2018-01-31] VITALS (7 sets, daily range): BP systolic 107–135; BP diastolic 72–84; PULSE 65–74; RESP 14–16; TEMP 36.4–36.8; O2SAT 92–100; BMI 17.3
[2018-01-31 06:01] LABS: Bedside Glucose 82 mg/dL (70-110)
[2018-01-31] MEDS: Cefazolin 2 GM in 0.9% Normal Saline 100 ML IV (07:45)
--- NOTE | 2018-01-31 07:47 | PCM.DC.URO ---
Discharge Diet: Light diet - advance as tolerated Discharge Activity: May not drive while taking narcotic pain medications., May Shower Return to work on:: 02/10/18 May shower in (days): 1 Call your doctor if your incision/area has: Continuous Slow Oozing, Sudden Increased Bleeding, Increased Pain/ Swelling, Increased Redness, Foul Smelling Discharge, Swelling at the incision site Call your doctor if you observe: Fever of 101 or Higher, Uncontrolled pain Suture Line Care: Avoid Pulling/Pushing, Avoid Pinching/Bending Instructions: Hydrocele Surgery (Hydrocelectomy), Discharge Instructions: Caring for Your Ji Padron Drainage Tube Allergies/Adverse Reactions: Allergies No Known Allergies Allergy (Verified 12/13/17 09:26) Medications to take at Discharge Acarbose [Precose] 25 mg PO TID #90 tab 12/13/17 Albuterol IH (ProAir) [Proair Hfa (SP)Vent Pts] 2 puff INHALATION Q4H PRN PRN 12/13/17 Metformin HCl 500 mg PO BID #90 tab 12/13/17 Cephalexin [Keflex] 500 mg PO Q8 #30 cap 01/31/18 Hydrocodone/Acetaminophen [[place] 5-325 Tablet] 1 ea PO Q4H PRN PRN 7 Days #20 tab 01/31/18 The following prescriptions were given: Hydrocodone/Acetaminophen [[place] 5-325 Tablet] 1 ea PO Q4H PRN PRN 7 Days #20 tab PRN Reason: Pain Cephalexin [Keflex] 500 mg PO Q8 #30 cap Primary Care Physician: Dada Kulkarni MD [Primary Care Provider] - Please Follow Up With: Leander Arce MD When: , February 06 at 2:45 pm.
--- NOTE | 2018-01-31 07:50 | HYD_PTH ---
PATIENT: NAV SMITH LOC: [facility] [place][id number] AGE/SX: 62/M ROOM: RE01/31/[address]: Dr. Leander Arce MD : 1955 BED: DIS: 01/31/2018 SPEC #: [id number] RECD: 01/31/18 13:16 STATUS: KISHORE NALLELY #: [id number] BETO: 01/31/18 07:[address]: Leander Arce DEPT: SURGICAL PATHOLOGY RECD BY: Leo Shaw ENTERED: 01/31/18 13:17 SP TYPE: HYDROCELE OTHR DR: Dr. Dada Kulkarni MD Tissues: HYDROCELE Procedures: Surgery Specimen Level III HEADER OPERATION: Hydrocelectomy PRE-OP DIAGNOSIS: Left hydrocele TISSUE SUBMITTED: Left hydrocele sac MICROSCOPIC DIAGNOSIS Left hydrocele sac: Consistent with hydrocele sac. SJ:norma 02/03/18 MICROSCOPIC DESCRIPTION Slides are reviewed. GROSS DESCRIPTION Received in fixative is one container labeled with the patient's name and designated left hydrocele sac. The specimen consists of two pieces of fibromembranous tissue measuring in aggregate 8 x 6 x 0.4 cm. No mass lesion is identified. Loan Counselor sections are submitted in one cassette. / SJ:rg 01/31/18 TC:5 CPT: 82681
--- NOTE | 2018-01-31 07:52 | DCINST_ITS ---
Discharge Diet: Light diet - advance as tolerated Discharge Activity: May not drive while taking narcotic pain medications., May Shower Return to work on:: 02/10/18 May shower in (days): 1 Call your doctor if your incision/area has: Continuous Slow Oozing, Sudden Increased Bleeding, Increased Pain/ Swelling, Increased Redness, Foul Smelling Discharge, Swelling at the incision site Call your doctor if you observe: Fever of 101 or Higher, Uncontrolled pain Suture Line Care: Avoid Pulling/Pushing, Avoid Pinching/Bending Instructions: Hydrocele Surgery (Hydrocelectomy), Discharge Instructions: Caring for Your Ji Padron Drainage Tube Allergies/Adverse Reactions: Allergies No Known Allergies Allergy (Verified 12/13/17 09:26) Medications to take at Discharge Acarbose [Precose] 25 mg PO TID #90 tab 12/13/17 Albuterol IH (ProAir) [Proair Hfa (SP)Vent Pts] 2 puff INHALATION Q4H PRN PRN Metformin HCl 500 mg PO BID #90 tab 12/13/17 Cephalexin [Keflex] 500 mg PO Q8 #30 cap 01/31/18 Hydrocodone/Acetaminophen [[place] 5-325 Tablet] 1 ea PO Q4H PRN PRN 7 Days #20 tab 01/31/18 The following prescriptions were given: Hydrocodone/Acetaminophen [[place] 5-325 Tablet] 1 ea PO Q4H PRN PRN 7 Days #20 tab PRN Reason: Pain Cephalexin [Keflex] 500 mg PO Q8 #30 cap Primary Care Physician: Dada Kulkarni MD [Primary Care Provider] - Please Follow Up With: Leander Arce MD When: , February 06 at 2:45 pm.
[2018-01-31] MEDS: Bupivacaine Mpf 0.5% 30 ML VIAL (08:15)
--- NOTE | 2018-01-31 08:22 | PCM.OPRPT ---
Report of Operation Date of Procedure: 01/31/18 Pre-Operative Diagnosis: Left large hydrocele Post-Operative Diagnosis: Same Surgery/Procedure Performed:: Left hydrocelectomy Description of Surgical Findings:: 62-year-old male was taken back to the operating room at the smooth induction of general anesthesia he was placed supine on the table the scrotum was shaved prepped and draped in usual sterile fashion. I then identified a large hydrocele in the left hemiscrotum infiltrated the skin with Marcaine. I then made an incision across the hemiscrotum about 4 cm in size dissected down to the tunica sac. I then delivered the hydrocele completely obtain hemostasis on the inside of the scrotum open up the hydrocele with a knife excised the edges of the hydrocele all the way from the cord to around the testicle. I then ran a suture all the way around the excision site for hemostasis. I then placed the scrotum testicle back into the scrotum. In good position. I made a small incision in the upper part of the scrotum placed the drain around the testicle. I then closed the first layer with running 3-0 chromic I then closed the second layer of the skin with a running 3-0 chromic in subcuticular fashion. The drain was then engaged. Anesthesia is currently being reversed plan to see him back next week to have the drain removed. Type of Anesthesia:: General Drains: OTTO - Admit VTE Documentation VTE Present on Admission: No VTE Mechan Device Prophylaxis: SCD's VTE Pharm Prophylaxis ordered?: No Reason prophylaxis not ordered:: Treatment Not Indicated
[2018-01-31 09:05] LABS: Bedside Glucose 86 mg/dL (70-110)
== END 2018-01-31 10:45 | disposition home or self-care (01) ==
LOC: SDC 05:31 → AC 05:32
PROVIDERS: Family Provider Family Medicine; PCP Family Medicine; Visit Provider Urology
PROC: (CPT 55040; principal; 2018-01-31 07:35)
DX: N43.3 Hydrocele, unspecified (principal); E11.9 Type 2 diabetes mellitus without complications; J44.9 Chronic obstructive pulmonary disease, unspecified; F17.200 Nicotine dependence, unspecified, uncomplicated; Z79.84 Long term (current) use of oral hypoglycemic drugs; Z79.51 Long term (current) use of inhaled steroids; Z79.899 Other long term (current) drug therapy
CPT/HCPCS: 55040; 82962; 88302; 88304; J7120; J2405

== ENCOUNTER 2018-02-20 16:18 | Outpatient (RCR) | payer OTHER, SELFPAY | END 2018-02-20 23:59 | LOC: NS 16:18 | PROVIDERS: Family Provider Family Medicine; PCP Family Medicine; Visit Provider Family Medicine | DX: E11.9 Type 2 diabetes mellitus without complications (principal); Z71.3 Dietary counseling and surveillance | CPT/HCPCS: 97803 ==

== ENCOUNTER 2018-03-31 17:01 | Outpatient (RCR) | payer OTHER, SELFPAY ==
--- NOTE | 2018-03-31 17:01 | DT_ITS ---
This patient was seen during an EMR downtime March 24, 2018 - March 31, 2018. This patient may have a combination of paper and electronic documentation or all paper documentation. All documentation is viewable within the e-chart portion of [employer] for each patient visit.
== END 2018-04-19 23:59 ==
LOC: DC 17:01
PROVIDERS: Family Provider Family Medicine; PCP Family Medicine; Visit Provider Family Medicine
DX: E11.9 Type 2 diabetes mellitus without complications (principal); Z71.3 Dietary counseling and surveillance

== ENCOUNTER 2018-10-07 19:17 | Inpatient (IN) | payer OTHER, SELFPAY ==
[2018-10-07 19:18] VITALS: BP 114/82; PULSE 110; RESP 18; TEMP 36.1; O2SAT 95; BMI 16.8
--- NOTE | 2018-10-07 20:23 | CT_ITS ---
STUDY: CT ABDOMEN AND PELVIS WITH CONTRAST REASON FOR EXAM: Male, 63 years old. Left lower quadrant pain. RADIATION DOSAGE (If Supplied By Facility): CTDIvol = ( 12.29 ) mGy, DLP = ( 413.14 ) mGycm TECHNIQUE: Transaxial images were obtained from the dome of the diaphragm to the symphysis pubis without oral contrast. 100ML ml of Isovue 300 contrast was administered. Sagittal and coronal images were reconstructed. Individualized dose optimization techniques were used for this CT. COMPARISON: 01/06/2018. FINDINGS: Limited views through the lower chest show findings consistent with chronic pulmonary disease. Normal liver. Distended gallbladder, and distended common bile duct and proximal pancreatic duct. Common bile duct measures as much as 1 cm. Recommend correlation with liver function tests and consider ERCP. Numerous splenic cysts are again noted, stable. There is diffuse atrophy of the pancreas. Normal bilateral adrenal glands. Normal right kidney. Normal left kidney. Evaluation of the GI tract is limited by the absence of oral contrast. Cannot exclude stomach wall thickening. Although it is difficult to evaluate bowel wall without oral contrast, there is clearly extremely marked small bowel wall thickening, reaching as much as 1.7 cm thick. As example, see axial images 30-87. Findings are consistent with an extreme enteritis. Further evaluation with small bowel follow-through recommended. Large bowel is normal caliber. There is marked fecal retention, and cannot exclude thickening in the rectosigmoid. No gross diverticulitis. Appendix not definitely seen. There is diffuse atherosclerotic calcification of the abdominal aorta, without a demonstrated aneurysm. Normal inferior vena cava. Normal retroperitoneum. Normal urinary bladder. There is enlargement of the prostate gland calcifications. Normal abdominal wall. There are diffuse degenerative changes of the visualized lumbar spine. CT/Abdomen/Pelvis W IV Cont ONLY IMPRESSION: Evaluation of the GI tract is limited by absence of oral contrast, but there is definitely extreme thickening of small bowel wall consistent with a severe enteritis. Marked fecal retention. Distended gallbladder, dilated common bile duct and pancreatic duct. Correlate with liver function tests. Electronically Signed: Dustin Rahman MD at 21:53 EST , Service support ,
[2018-10-07 20:37] VITALS: BP 130/82; PULSE 102; RESP 16; O2SAT 95
[2018-10-07] MEDS: Ondansetron 4 MG/2 ML Vial IV (20:47)
[2018-10-07] MEDS: 0.9% Normal Saline 1,000 ML 1000 ML IV (20:47)
[2018-10-07] MEDS: Morphine 4 MG/ML Syringe IV ×2 (20:47→22:31)
[2018-10-07 20:56] LABS: Absolute Lymphocyte Count 0.77 X10^3/ul (0.83-4.51); Absolute Neutrophil Count 7.8 X10^3/uL (2.0-7.7); Basophil# 0.01 X10^3/uL; Basophil% 0.1 % (0-1); Hematocrit 46.3 % (40-54); Hemoglobin 15.6 g/dl (13.0-16.5); Lymphocyte # 0.77 X10^3/ul (4.0); Lymphocyte % 7.9 % (19-41); Mean Corp Hgb Conc 33.7 g/gl (32-36); Mean Corpuscular Hgb 31.5 pg (27.0-32.0); Mean Corpuscular Volume 93.3 fL (80-94); Mean Platelet Vol. 10.5 fl (6.2-12.0); Monocyte# 1.24 X10^3/uL; Monocyte% 12.7 % (0-10); Neutrophil # 7.76 X10^3/uL (2.7-7.7); Neutrophil % 79.2 % (47-70); POSITIVE COUNT NO; POSITIVE DIFFERENTIAL NO; POSITIVE MORPHOLOGY NO; Platelet Count 283 K/mm3 (150-450); RBC Distribution Width SD 44.3 fl (35.1-43.9); Red Blood Count 4.96 M/mm3 (4.6-6.2); White Blood Count 9.8 K/mm3 (4.4-11.0)
[2018-10-07 21:00] LABS: ALB/GLOB Ratio 0.6 RATIO (0.9-2.4); AST(SGOT) 12 U/L (15-37); Alanine Aminotransfer ALT/SGPT 13 U/L (16-61); Albumin, Serum 2.2 g/dL (3.2-5.0); Alkaline Phosphatase 93 U/L (45-117); Anion Gap 11 (5-15); BUN 20 mg/dL (7-18); BUN/Creat Ratio 29.9 RATIO (10-20); Calcium,Total 8.2 mg/dL (8.5-10.1); Chloride 97 mmol/L (98-107); Creatinine, Serum 0.67 mg/dL (0.70-1.30); EST Glomerular Filtration Rate 128 mL/min (>60); Est Glom Filt Rate - Afr Amer 155 mL/min (>60); Estimated Creatinine Clearance 89.58 ml/min; Globulin 3.4 g/dL (2.2-4.2); Glucose 175 mg/dL (74-106); Potassium 4.1 mmol/L (3.5-5.1); Protein, Total 5.6 g/dL (6.4-8.2); Sodium Level 133 mmol/L (136-145)
[2018-10-07 21:52] LABS: Bacteria 0 SEEN /hpf (None Seen); Mucous, Urine 0 SEEN /hpf (<or=2+); Red Blood Cells-Urine 0 SEEN /hpf (0-5); Squamous Epithelial Cells - UA 0 SEEN /hpf (0-5); White Blood Cells 0 SEEN /hpf (0-5)
[2018-10-07 21:53] LABS: Color, Urine Yellow (Yellow); Glucose, Dipstick Normal (Normal); Leukocyte Esterase-Dipstick Negative /ul (Negative); Nitrite-Dipstick Negative (Negative); Occult Blood-Urine Negative /ul (Negative); Protein-Dipstick 30 mg/dl (Negative); Urine Bilirubin Dipstick Negative (Negative); Urine Clarity Clear (Clear); Urine Urobilinogen Normal (Normal)
[2018-10-07 21:55] LABS: Ketone-Dipstick 150 mg/dl (Negative)
--- NOTE | 2018-10-07 22:29 | HP.PCM_ITS ---
History of Present Illness Date of Admission: 10/07/18 Chief Complaint: abdominal pain The patient is a 63 year old M with a PMH of diabetes mellitus. Admitted to the ED on 10/07/2018 with complaint of abdominal pain of one days duration. Pain started yesterday when he was at work and he says started around 4 PM. Was sharp and cramping and episodic. There were no aggravating or relieving factors. He denied any diarrhea or vomiting or any fever or chills. He is never had such abdominal pain before. Pain was not improving and so he decided coming to the ED. Vitals were unremarkable in the ED and chemistry showed sodium of 133 and creatinine of 0.67. CBC was unremarkable. Abdominal CT showed extremely market small bowel wall thickening which was much is 1.7 cm thick consistent with extreme enteritis. Large bolus of normal caliber with market fecal retention. No gross diverticulitis seen in the appendix is not definitely seen. Also showed distended gallbladder and distended, bile duct and proximal pancreatic duct with diffuse atrophy of the pancreas. Is been admitted to be managed for severe enteritis. He was given IV ciprofloxacin and Flagyl in the ED. [] Past Medical History Allergies No Known Allergies Allergy (Verified 10/07/18 19:20) Home Medications: Ambulatory Orders Medication Instructions Recorded Acarbose [Precose] 25 mg PO TID #90 tab 12/13/17 Albuterol IH (ProAir) [Proair Hfa 2 puff INHALATION Q4H PRN PRN 12/13/17 (SP)Vent Pts] Metformin HCl 500 mg PO BID #90 tab 12/13/17 Cephalexin [Keflex] 500 mg PO Q8 #30 cap 01/31/18 Hydrocodone/Acetaminophen [[place] 1 ea PO Q4H PRN PRN 7 Days #20 tab 01/31/18 5-325 Tablet] Lives: Spouse/ Significant Other Smoking Status: Current every day smoker Tobacco Use: Cigarettes Alcohol: Occasional Drugs: None - *Family History Maternal History Items: Diabetes Sibling History Items: Diabetes Review of Systems Constitutional: Denies: Chills, Fever, Malaise, Weakness, Weight Change Eyes: Denies: Blurred vision HEENT: Denies: Head Aches, Sinus Congestion, Sinus Drainage Cardiovascular: Denies: Chest Pain, Palpitations Respiratory: Denies: Cough, Shortness of Breath, Shortness of breath at rest, Sputum production Gastrointestinal: Reports: Abdominal Pain. Denies: Constipation, Diarrhea, Dyspepsia, Hematemesis, Hematochezia, Nausea, Melena, Vomiting Genitourinary: Denies: Dysuria Musculoskeletal: Denies: Joint Pain, Joint Tenderness Skin: Denies: Rash, Wounds Neurological: Denies: Numbness, Tingling, Focal weakness Psychiatric: Denies: Anxiety, Depression, Homicidal Ideations, Suicidal Ideations Hematologic/ Lymphatic: Denies: Easy Bruising, Easy Bleeding VTE Information - Inpt Only VTE Present on Admission: No VTE Pharm Prophylaxis ordered?: Yes - Physical Exam General: Alert, Oriented x3, Cooperative, No apparent distress HEENT: Atraumatic, PERRLA, EOMI, Normocephalic Oral: Dry Mucosa Neck: Supple, No JVD, Negative Carotid Bruits Lungs: Clear to auscultation, Normal air movement Cardiovascular: Regular rate, Regular Rhythm, Normal S1, Normal S2, No murmurs Abdomen: Bowel Sounds Present, Soft, - - mild generalised tenderness, with no guarding or rebound tenderness Extremities: No clubbing, No cyanosis, No edema, Capillary Refill Less than 3 Seconds Skin: No rashes, - - nodular 5 x5cm lesion on right lateral forearm, nontender. Also has painless nodules over back and neck. Musculoskeletal: No Tenderness to Palpation of Joints or Extremities Lymphatic: No Cervical, Supraclavicular, or Inguinal Adenopathy Neurological: Cranial nerves II-XII grossly intact, Neuro grossly intact, Motor Exam 5/5 strength throughout Psych/Mental Status: Normal Affect, Appropriate, Alert and oriented to time, place, person, mood and affect Vital Signs Temp Pulse Resp BP Pulse Ox 96.9 F L 102 H 16 130/82 H 95 10/07/18 19:18 10/07/18 20:37 10/07/18 20:37 10/07/18 20:37 10/07/18 20:37 Oxygen Delivery Method Room Air Weight: 120 lb 9.486 oz Body Mass Index (BMI) 16.8 Laboratory Tests Past 24 Hrs 10/07/18 10/07/18 10/07/18 20:32 20:32 21:44 WBC 9.8 RBC 4.96 Hgb 15.6 Hct 46.3 MCV 93.3 MCH 31.5 MCHC 33.7 RDW 13.0 RDW Differential 44.3 H Plt Count 283 MPV 10.5 Immature Gran % (Auto) 0.100 Neut % (Auto) 79.2 H Lymph % (Auto) 7.9 L Wells % (Auto) 12.7 H Eos % (Auto) 0.0 Baso % (Auto) 0.1 Absolute Neuts (auto) 7.8 H Absolute Lymphs (auto) 0.77 L Total Counted Not Reportable Sodium 133 L Potassium 4.1 Chloride 97 L Carbon Dioxide 25.0 Anion Gap 11 BUN 20 H Creatinine 0.67 L Estim Creat Clear Calc 89.58 Est GFR (MDRD) Af Amer 155 Est GFR (MDRD) Non-Af 128 BUN/Creatinine Ratio 29.9 H Glucose 175 H Calcium 8.2 L Total Bilirubin 0.50 AST 12 L ALT 13 L Alkaline Phosphatase 93 Total Protein 5.6 L Albumin 2.2 L Globulin 3.4 Albumin/Globulin Ratio 0.6 L Urine Color Yellow Urine Clarity Clear Urine pH 5.0 Ur Specific [place] 1.020 Urine Protein 30 H Urine Glucose (UA) Normal Urine Ketones 150 H Urine Occult Blood Negative Urine Nitrite Negative Urine Bilirubin Negative Urine Urobilinogen Normal Ur Leukocyte Esterase Negative Urine RBC 0 SEEN Urine WBC 0 SEEN Ur Squamous Epith Cells 0 SEEN Urine Bacteria 0 SEEN Urine Mucus 0 SEEN Diagnostic Data Abdomen/Pelvis CT 10/07/18 20:23 IMPRESSION: Evaluation of the GI tract is limited by absence of oral contrast, but there is definitely extreme thickening of small bowel wall consistent with a severe enteritis. Marked fecal retention. Distended gallbladder, dilated common bile duct and pancreatic duct. Correlate with liver function tests. Electronically Signed: Dustin Rahman MD at 21:53 EST , Service support , Assessment/Plan 63 y/o male presenting with a one day history of severe abdominal pain 1. Small bowel enteritis of unknown etiology * abdominal pain was cramping, sharp, with no aggravating or relieving factors * CT abdomen showed extremely marked small bowel wall thickening, consistent with extreme enteritis, and marked fecal retention; large bowel of normal caliber * CT also showed distended gallbladeer and common bile dicut and proximal pancre atic duct, as well as diffuse pancreatic atrophy. These are chronic findings * denies any diarrhea or vomiting * admit to Med surg * keep NPO for bowel rest * give IV ciprofloxacin and IV flagyl * hydrate with IVF NS 2. Diabetes mellitus: hold metfromin and acarbose. ISS. Accuchecks q6 3. Nodular skin lesion ?malignancy * says he has had this nodular skin lesion on the right upper forearm for the past 4 months, and it has gradually enlarged * also has painless subcentimeter nodules over his back and neck * will need skin biopsy for definite diagnosis; consider consulting general surgery in the morning for skin biopsy * DVT prophylaxis: heparin GI prophylaxis: PPI Code Visit OBSV E&M: 54610 Initial observation care L3
--- NOTE | 2018-10-07 22:33 | ED.DCSUM_ITS ---
- ER Visit Summary Date of Service: 10/07/18 Chief Complaint: Abdominal pain History of Present Illness: The patient is a 63 M presents to the emergency department with abdominal pain. The patient states his symptoms began over the past 24 hours. He describes a sharp stabbing pain in his left upper quadrant into his left lower quadrant. He states his never had pain like this before. His only past medical history is of diabetes non-insulin dependent. He has had prior hiatal hernia repair by Dr. Nunez. He denies any fevers or chills. He denies any weight loss. The patient states he has had a skin rash for the past 3 months. He does have a large lesion on his right upper arm. He has not had diarrhea. He denies any recent antibiotic use. Is not had a recent colonoscopy. He has not found anything that improved his pain. Physical Examination: Vital signs reviewed General: Well-nourished, well-developed Head: Normocephalic, atraumatic Eyes: Pupils equal and reactive, extraocular muscles intact Neck, supple, no lymphadenopathy Heart: Regular rate and rhythm Respiratory: No distress, clear bilaterally Abdomen: Soft, tender in the left lower quadrant without rebound or guarding r, nondistended, no peritoneal signs Back: Nontender Extremities: Nontender, no edema, no cords Skin: Normal color, abnormal skin lesion on the right upper arm with irregular margins Neuro: Alert and oriented, no focal or lateralizing deficits Test Results: [] Emergency Department Course and Treatment: The patient presents with abdominal pain. He has had no other infectious symptoms. IV was established. He was g iven fluids and analgesics with marked improvement of his pain. Screening labs are unremarkable. His urine does show some ketones but I do this feeling likely because he is mildly dry. Patient underwent CT of his abdomen and pelvis. This does show multiple irregularities within his small bowel and distention. There is no obstruction. There is no perforation. The patient was started on broad-spectrum antibiotics. I do have some suspicion that this may be malignancy given his symptoms and skin lesions, but at this time the patient will be admitted for pain control, hydration, and reevaluation. He is comfortable with this plan of care. Treatment Plan: [] Disposition: Admission Impression: 1. Enteritis This note was generated with [employer] dictation software. It may contain incorrect words, spelling, and punctuation that were not noted in review of the chart prior to signing ED Disposition - Plan for ED Patient: Chief Complaint: Abd Pain Referrals: Dada Kulkarni MD [Primary Care Provider] -
[2018-10-07 22:38] VITALS: BP 120/62; PULSE 90; PULSE 93; RESP 16; TEMP 37.1; O2SAT 94; O2SAT 95
[2018-10-07] MEDS: Ciprofloxacin 400 MG/200 ML BAG 200 MG IV (22:43)
[2018-10-07 23:10] VITALS: BMI 17.2
[2018-10-07 23:13] VITALS: BMI 17.3
[2018-10-08] MEDS: Morphine 2 MG/ML Syringe 1 MG IV ×4 (02:07→21:18)
[2018-10-08 04:30] VITALS: BP 118/76; PULSE 88; RESP 16; TEMP 36.6; O2SAT 94
[2018-10-08] MEDS: 0.9% Normal Saline 1,000 ML 150 ML IV ×2 (04:33→13:01)
[2018-10-08 06:35] LABS: Bedside Glucose 175 mg/dL (70-110)
--- NOTE | 2018-10-08 07:51 | PN_ITS ---
Subjective: The patient is a 63-year-old male with a past medical history of diabetes mellitus presented to the emergency department at [facility] on 10/07/2018 complaining of severe abdominal pain. He was afebrile in the emergency department and vital signs were unremarkable. Blood cell count was 9.8 with 80% neutrophils. Hemoglobin and platelets were normal. Sodium was mildly decreased at 133 and the BUN was 20 with a creatinine of 0.67. UA was unremarkable. A noncontrasted CT scan of the abdomen and pelvis was done and showed extreme thickening of the small bowel wall consistent with severe enteritis. There was marked fecal retention. Gallbladder was distended and the common bile duct and pancreatic duct were dilated. He has pancreatic atrophy. He was admitted to the hospital and made n.p.o. IV fluids were initiated and he was started on Cipro and Flagyl. He had an EGD and colonoscopy done by Dr. Nunez in January 2018 and the EGD showed gastritis and duodenitis. H. pylori was negative. Colonoscopy was negative except for a few diverticuli. Patient tells me that he has been losing weight but his weight varies between 114 and 125 and has been stable. Denies nausea or vomiting. The abdominal pain is located in the lower left quadrant and suprapubic area. Denies sick contacts. Denies fever/chills. Afebrile since admission. Stable vital signs. 92-93% saturation on room air. White blood cell count is within normal limits. PETR globin is normal and platelets are normal. Electrolytes are normal today and the BUN is down to 17 with a creatinine of 0.71. LFTs were unremarkable. UA had 0 WBCs and 0 RBCs. - Physical Exam General: Alert, Oriented x3, Cooperative, No apparent distress - but tells nurse he has 6/10 pain. He is thirsty and wants to drink. HEENT: Atraumatic, Normocephalic Oral: Moist Mucosa, - - Poor dentition Neck: Supple, No JVD, Negative Carotid Bruits, Trachea Midline Lungs: No rhonchi, No wheeze, No rales, Diminished Cardiovascular: Regular rate, Regular Rhythm, Normal S1, Normal S2, No murmurs, No Gallop Abdomen: Bowel Sounds Present, Soft, Non-Distended, Tender - In the left lower quadrant and suprapubic area, no guarding with palpation, - - he has very small superficial nodules throughout the abdominal wall Extremities: No clubbing, No cyanosis, No Calf Tenderness, Edema - of both ankles, R>L Skin: No rashes, No breakdown Neurological: Neuro grossly intact Psych/Mental Status: Normal Affect, Appropriate Vital Signs Temp Pulse Resp BP Pulse Ox 97.8 F 88 16 118/76 94 10/08/18 04:30 10/08/18 04:30 10/08/18 04:30 10/08/18 04:30 10/08/18 04:30 Oxygen Delivery Method Room Air Weight: 123 lb 14.397 oz Body Mass Index (BMI) 17.2 Intake and Output for Last 24 Hours 10/06/18 10/07/18 10/08/18 23:59 23:59 23:59 Intake Total 1352 / 1352 Balance 1352 / 1352 Laboratory Tests Past 24 Hrs 10/07/18 10/07/18 10/07/18 20:32 20:32 21:44 WBC 9.8 RBC 4.96 Hgb 15.6 Hct 46.3 MCV 93.3 MCH 31.5 MCHC 33.7 RDW 13.0 RDW Differential 44.3 H Plt Count 283 MPV 10.5 Immature Gran % (Auto) 0.100 Neut % (Auto) 79.2 H Lymph % (Auto) 7.9 L [place] % (Auto) 12.7 H Eos % (Auto) 0.0 Baso % (Auto) 0.1 Absolute Neuts (auto) 7.8 H Absolute Lymphs (auto) 0.77 L Total Counted Not Reportable Sodium 133 L Potassium 4.1 Chloride 97 L Carbon Dioxide 25.0 Anion Gap 11 BUN 20 H Creatinine 0.67 L Estim Creat Clear Calc 89.58 Est GFR (MDRD) Af Amer 155 Est GFR (MDRD) Non-Af 128 BUN/Creatinine Ratio 29.9 H Glucose 175 H Calcium 8.2 L Total Bilirubin 0.50 AST 12 L ALT 13 L Alkaline Phosphatase 93 Total Protein 5.6 L Albumin 2.2 L Globulin 3.4 Albumin/Globulin Ratio 0.6 L Urine Color Yellow Urine Clarity Clear Urine pH 5.0 Ur Specific [place] 1.020 Urine Protein 30 H Urine Glucose (UA) Normal Urine Ketones 150 H Urine Occult Blood Negative Urine Nitrite Negative Urine Bilirubin Negative Urine Urobilinogen Normal Ur Leukocyte Esterase Negative Urine RBC 0 SEEN Urine WBC 0 SEEN Ur Squamous Epith Cells 0 SEEN Urine Bacteria 0 SEEN Urine Mucus 0 SEEN POC Glucose 10/08/18 06:33 POC Glucose 175 H Medical Necessity - Tobacco Use Smoking Status: Current every day smoker Tobacco Use: Cigarettes Assessment/Plan Impressions 1. crampy abdominal pain of uncertain etiology with ? enteritis on an uncontrasted CT scan of the abd/pelvis. Colonoscopy within the past year with diverticuli only. no diarrhea.......infact he has stool retention. 2. Hx of duodenitis and gastritis on an EGD last January 3. nicotine addiction 4. suspected COPD 5. Diabetes mellitus type 2 Continue Cipro and Flagyl for now Consult Dr. Nunez to evaluate for abdominal pain Continue hydration Start clear liquids nodular skin lesions - etiology? malignancy? neurofibromas? some appear to be se baceous cysts on the back Code Visit Inpatient E&M: 90605 Subs Hosp L2
[2018-10-08 07:55] VITALS: BP 110/62; PULSE 110; RESP 18; TEMP 37.3; O2SAT 92
[2018-10-08 08:20] LABS: Absolute Lymphocyte Count 0.53 X10^3/ul (0.83-4.51); Absolute Neutrophil Count 4.7 X10^3/uL (2.0-7.7); Basophil# 0.01 X10^3/uL; Basophil% 0.2 % (0-1); Differential Indicated SCAN CRITERIA MET; Eosinophil# 0.02 X10^3/uL; Eosinophils% 0.3 % (0-5); Hematocrit 41.2 % (40-54); Hemoglobin 13.7 g/dl (13.0-16.5); Lymphocyte # 0.53 X10^3/ul (4.0); Lymphocyte % 8.5 % (19-41); Mean Corp Hgb Conc 33.3 g/gl (32-36); Mean Corpuscular Hgb 31.5 pg (27.0-32.0); Mean Corpuscular Volume 94.7 fL (80-94); Mean Platelet Vol. 10.3 fl (6.2-12.0); Monocyte# 0.98 X10^3/uL; Monocyte% 15.6 % (0-10); Neutrophil % 74.9 % (47-70); POSITIVE COUNT NO; POSITIVE DIFFERENTIAL YES; POSITIVE MORPHOLOGY NO; Platelet Count 240 K/mm3 (150-450); RBC Distribution Width CV 12.9 % (11.6-14.6); RBC Distribution Width SD 43.4 fl (35.1-43.9); Red Blood Count 4.35 M/mm3 (4.6-6.2); White Blood Count 6.3 K/mm3 (4.4-11.0)
[2018-10-08 08:34] LABS: Anion Gap 7 (5-15); BUN 17 mg/dL (7-18); Calcium,Total 7.2 mg/dL (8.5-10.1); Chloride 103 mmol/L (98-107); Creatinine, Serum 0.71 mg/dL (0.70-1.30); EST Glomerular Filtration Rate 120 mL/min (>60); Est Glom Filt Rate - Afr Amer 145 mL/min (>60); Estimated Creatinine Clearance 86.85 ml/min; Glucose 112 mg/dL (74-106); Potassium 4.2 mmol/L (3.5-5.1); Sodium Level 136 mmol/L (136-145)
[2018-10-08] MEDS: Ciprofloxacin 400 MG/200 ML BAG 200 MG IV ×2 (10:34→21:29)
[2018-10-08 11:00] VITALS: RESP 18
[2018-10-08 14:00] VITALS: BP 95/57; PULSE 93; RESP 18; TEMP 36.8; O2SAT 93
[2018-10-08] MEDS: Heparin Injection (Vial) 5,000 UNIT/ML VIAL 5000 UNIT SC ×2 (14:30→21:21)
[2018-10-08] MEDS: 0.9% NaCl Peripheral Flush Adult/Peds IV (17:24)
--- NOTE | 2018-10-08 17:53 | RAD_ITS ---
STUDY: X-RAY CHEST REASON FOR EXAM: Male, 63 years old. Cough TECHNIQUE: Frontal and lateral views COMPARISON: None. FINDINGS: The lungs are hyperaerated. There is basilar atelectasis. Normal size heart. Normal mediastinum and dennis. Normal visualized pulmonary arteries. Normal visualized aortic arch and descending thoracic aorta. Normal visualized thoracic spine. Old left rib fractures. There is no demonstrated abnormality of the visualized soft tissue structures of the upper abdomen. RAD/Chest PA and Lateral IMPRESSION: Mild hyperaeration. Electronically Signed: Haseeb Church DO at 23:33 EST Tel [phone], Service support ,
[2018-10-08 18:38] LABS: Phosphorus 2.7 mg/dL (2.5-4.9)
[2018-10-08 18:44] LABS: Magnesium 1.5 mg/dL (1.6-2.6); Thyroid Stim Hormone (TSH) 1.99 uIU/mL (0.358-3.74)
[2018-10-08 18:47] LABS: Hemoglobin A1c 8.5 % (4.2-6.3)
[2018-10-08 20:00] VITALS: BP 104/50; PULSE 93; RESP 18; TEMP 37.2; O2SAT 94
[2018-10-09] VITALS (10 sets, daily range): BP systolic 83–111; BP diastolic 53–66; PULSE 81–103; RESP 15–18; TEMP 36.2–36.9; O2SAT 93–98
--- NOTE | 2018-10-09 | IMM_PTH ---
PATIENT: NAV SMITH LOC: MS2 U#:[id number] AGE/SX: 63/M ROOM: [facility] – [place] RE10/09/[address]: Dr. Joelle Madsen DO : 1955 BED: 1 DIS: 10/10/2018 SPEC #: [id number] RECD: 10/10/18 14:21 STATUS: KISHORE REQ #: [id number] BETO: 10/09/18 00:[address]: Leroy Myers DEPT: IMMUNOHISTOCHEMISTRY RECD BY: Carola Mcclure ENTERED: 10/10/18 14:25 SP TYPE: IMMUNO OTHR DR: DO Dr. Dada Connolly MD Dr. Nana Yaa Koram, MD Tissues: A - Jejunum, NOS C - Stomach, NOS D - Stomach, NOS Procedures: Synapto (add) CK8 (initial) H Pylori (initial) SMA (add) CD138 (add) CD45 (add) CD56 (add) CHROMO (add) CK7 (add) DESMIN (add) KAPPA (add) KI-67 (add) LAMBDA (add) MART1 (add) Vimentin (add) Pankeratin (add) S-100 (add) Comments: @ Ordering doctor for SYN. edited from to @ by RGOOD at 10/10/18 1425 @ Ordering doctor for CK8 edited from to @ by RGOOD at 10/10/18 1425 @ Ordering doctor for H.PYLORI edited from to @ by RGOOD at 10/10/18 1425 @ Ordering doctor for CD45. edited from to @ by RGOOD at 10/10/18 1425 @ Ordering doctor for CD56. edited from to DR.RGUTTM Underwood by RGOOD at 10/10/18 1425 @ Ordering doctor for CHROMO. edited from to @ by RGOOD at 10/10/18 1425 @ Ordering doctor for KI67. edited from to DR.RGUTTM Underwood by RGOOD at 10/10/18 1425 @ Submitting doctor edited from to @ by RGOOD at 10/10/18 1425 PHYSICIAN & [place] [id number] SPECIMEN INFORMATION: Tissue Source: A - Jejunum at 1.1 meter biopsy, C - Antral biopsy, D - Proximal stomach biopsy Clinical Info: Small bowel inflammation Specimen Number: [id number] A, C & D CPT code: 11296 x3, 34087 x15 METHODOLOGY: Deparaffinized sections of prefer/formalin-fixed tissue or PAP/DQ stained slides are incubated with monoclonal/polyclonal antibodies/oligonucleotide probes. Localization is made via biotin free immunoperoxidase method. Appropriate controls are performed and reacted as expected. Results on target cell population are indicated in the following table: RESULTS: ANTIBODY / CLONE RESULT Block A CK8 (43ovgaT85) negative CD56 (123C3.D5) negative CD45 (RP2/18) negative Chromo (LK2H10) negative Synapto (polyclonal) negative Ki-67 (30-9) positive, low CD138 (B-A38) negative [place] (polyclonal) negative Lambda (polyclonal) negative Vimentin (V9) positive Actin (1A4) negative MART-1 (A-103) positive Desmin (CE-R-11) negative AE1-3 (AE1/AE3/PCK26) negative CK7 (OV-TL12/30) negative S-100 (4C4.9) positive Block C H Pylori (polyclonal) negative Block D H Pylori (polyclonal) negative These tests were developed and their performance characteristics determined by [facility]. They may not have been cleared or approved by the U.S. Food and Drug Administration. The FDA has determined that such clearance or approval is not necessary. INTERPRETATION: A. Jejunum at 1.1 meter, biopsy: Consistent with metastatic melanoma. See comment. C. Antral biopsy: Negative for Helicobacter pylori organisms. D. Proximal stomach biopsy: Negative for Helicobacter pylori organisms. SJ:norma 10/20/18 The specimen is sent to [facility] for expert opinion and reviewed by Dr. Cosby and above diagnosis is rendered. The complete report is viewable in patient's EMR. Case has been reviewed in consultation with Dr. Plaza who concurs with the above diagnosis. IDC:[id number]
[2018-10-09] MEDS: Morphine 2 MG/ML Syringe 1 MG IV ×3 (01:40→14:42)
[2018-10-09 06:15] LABS: Partial Thromboplast Time 43.4 Seconds (24.1-36.2)
--- NOTE | 2018-10-09 07:28 | PN_ITS ---
Subjective: All events the past 24 hours of been reviewed. Afebrile since admission. Started on clear liquids last evening Blood pressure overnight ranged from 95/57-104 over. May be related to pain medication? 93-94% on room air Consult was placed for Dr. Myers to evaluate the patient EGD done with a pediatric colonoscope showed diffuse moderate inflammation, characterized by edema, erythema and friability in the jejunum. Biopsies were taken. There was diffuse moderately erythematous mucosa without active bleeding found in the entire duodenum. There was diffuse moderately congested mucosa in the entire examined stomach and biopsies were taken. The lower and middle third of the esophagus were normal but biopsies were also taken there. He continues to complain of abdominal pain. He is not having diarrhea and he has no vomiting. Objective: - Physical Exam General: Alert, Oriented x3, Cooperative, No apparent distress - but tells nurse he has 6/10 pain. He is thirsty and wants to drink. HEENT: Atraumatic, Normocephalic Oral: Moist Mucosa, - - Poor dentition Neck: Supple, No JVD, Negative Carotid Bruits, Trachea Midline Lungs: No rhonchi, No wheeze, No rales, Diminished Cardiovascular: Regular rate, Regular Rhythm, Normal S1, Normal S2, No murmurs, No Gallop Abdomen: Bowel Sounds Present, Soft, Non-Distended, Tender - In the left lower quadrant and suprapubic area, no guarding with palpation, - - he has very small superficial nodules throughout the abdominal wall Extremities: No clubbing, No cyanosis, No Calf Tenderness, Edema - of both ankles, R>L Skin: No rashes, No breakdown Neurological: Neuro grossly intact Psych/Mental Status: Normal Affect, Appropriate - Physical Exam Vital Signs Temp Pulse Resp BP Pulse Ox 98.5 F 103 H 18 99/56 L 93 10/09/18 02:30 10/09/18 02:30 10/09/18 02:30 10/09/18 02:30 10/09/18 02:30 Oxygen Delivery Method Room Air Weight: 123 lb 14.397 oz Body Mass Index (BMI) 17.2 Intake and Output for Last 24 Hours 10/07/18 10/08/18 10/09/18 23:59 23:59 23:59 Intake Total 3272 / 3272 1155 / 1155 Balance 3272 / 3272 1155 / 1155 Laboratory Tests Past 24 Hrs 10/08/18 10/08/18 10/08/18 07:48 07:48 07:48 WBC 6.3 RBC 4.35 L Hgb 13.7 Hct 41.2 MCV 94.7 H MCH 31.5 MCHC 33.3 RDW 12.9 RDW Differential 43.4 Plt Count 240 MPV 10.3 Immature Gran % (Auto) 0.500 Neut % (Auto) 74.9 H Lymph % (Auto) 8.5 L [place] % (Auto) 15.6 H Eos % (Auto) 0.3 Baso % (Auto) 0.2 Absolute Neuts (auto) 4.7 Absolute Lymphs (auto) 0.53 L Total Counted Not Reportable Differential Comment COMMENT APTT Sodium 136 Potassium 4.2 Chloride 103 Carbon Dioxide 26.0 Anion Gap 7 BUN 17 Creatinine 0.71 Estim Creat Clear Calc 86.85 Est GFR (MDRD) Af Amer 145 Est GFR (MDRD) Non-Af 120 BUN/Creatinine Ratio 24.0 H Glucose 112 H Hemoglobin A1c Calcium 7.2 L Phosphorus Magnesium 1.5 L TSH 1.99 10/08/18 10/08/18 10/09/18 07:48 07:48 05:15 WBC RBC Hgb Hct MCV MCH MCHC RDW RDW Differential Plt Count MPV Immature Gran % (Auto) Neut % (Auto) Lymph % (Auto) [place] % (Auto) Eos % (Auto) Baso % (Auto) Absolute Neuts (auto) Absolute Lymphs (auto) Total Counted Differential Comment APTT 43.4 H Sodium Potassium Chloride Carbon Dioxide Anion Gap BUN Creatinine Estim Creat Clear Calc Est GFR (MDRD) Af Amer Est GFR (MDRD) Non-Af BUN/Creatinine Ratio Glucose Hemoglobin A1c 8.5 H Calcium Phosphorus 2.7 Magnesium TSH Medical Necessity - Tobacco Use Smoking Status: Current every day smoker Tobacco Use: Cigarettes Assessment/Plan Impressions 1. crampy abdominal pain of uncertain etiology with enteritis on an uncontrasted CT scan of the abd/pelvis. Colonoscopy within the past year with diverticuli only. no diarrhea.......in fact he has stool retention. Diffuse inflammation of the entire stomach, entire duodenum and the jejunum with edema and friability in the jejunum. Biopsies were taken. Infectious versus allergic etiology? Angioedema? 2. Hx of duodenitis and gastritis on an EGD last January 3. nicotine addiction 4. suspected COPD 5. Diabetes mellitus type 2 Continue Cipro and Flagyl for now Start diphenhydramine, and Solu-Medrol Await the results of the biopsies. Protonix 40 mg IV every 12 hours Recheck lab in the a.m. Allergan, food profile C1q esterase inhibitor and functional esterase inhibitor Stool for lactoferrin, ova and parasites ordered Continue clear liquid diet Code Visit Inpatient E&M: 80241 Subs Hosp L2
--- NOTE | 2018-10-09 09:35 | PCM.CONS.GEN ---
Reason for Consult Date of Consultation: 10/09/18 Reason for Consultation: abdominal pain-enteritis History of Present Illness: The patient is a 63 year old M who presents with a complaint of abdominal pain for the last few days. the patient presented to [facility] emergency department on October 07 with a complaint of one-day history of abdominal pain. The patient relatively unremarkable laboratory studies. He was admitted to the medicine service. CT scan of the abdomen and pelvis demonstrated was felt to be significant small bowel enteritis-rather prominent thickening and edema of the small bowel possibly also including thickening of the stomach. The colon demonstrated stool but did not have it was felt to be la colitis. the patient was started on Cipro and Flagyl orally. There is more for stool studies but the patient has not had bowel movements since admission to the hospital. The patient denies travel outside of the country. He denies eating unusual around foods. He denies anybody else having similar symptoms as at home. Patient was seen in our office in December of this year with a complaint of epigastric pain for approximately one month duration. The patient does smoke. He was seen by my physician's orthopedic physician assistant Barb Hayes who noted: The patient is a 62 year old male referred for evaluation. ?Marvin notes a 1-month history of worsening epigastric pain, as well as bloating and intermittent lower abdominal discomfort. ?Patient notes pain seems less severe in the morning, then worsens after drinking his morning coffee. ?Associated symptoms include nausea, decreased appetite, and few episodes of emesis. ?Patient denies hematemesis or coffee-ground emesis. ?He has noted some constipation. ?Denies blood in stools or black tarry stools. ?He notes a significant weight loss of 150 to 116 lbs over the last few months. ?He is a tobacco user, smokes 1/2 pack of cigarettes daily, has COPD. ? Patient reports he had been in good overall health until the last couple of months. ?He was sent to the emergency department at [facility] on 12/13/17 after being seen at Urgent Care for upper respiratory complaints and nausea and was found to have a glucose level of 405. ?He was started on metformin and precose but states he has not been back to his PCP, Dr. Dada Kulkarni, to follow up on his newly diagnosed diabetes. ?The patient also had a chest CT at that ED visit which showed no acute disease. ?More recently on 12/30/17 patient presented to the emergency department for his abdominal complaints and nausea. ?He had an abdominal CT scan which showed gallbladder wall thickening and common bile duct 9.3mm. ?Ultrasound of the right upper quadrant showed small amount of sludge without wall thickening or pericholecystic fluid. ?Dr. Myers was contacted and reviewed the imaging, did not feel this was convincing for triue cholecystitis and recommended outpatient follow-up. ??Labs reviewed in [facility] also showed recent CEA of 5.6. ?Patient has never had a screening colonoscopy. he underwent upper and lower endoscopy on January 28, 2018 which demonstrated gastritis, duodenitis and 2 polyps found in the transverse colon and rectosigmoid area. Pathology returned as: MICROSCOPIC DIAGNOSIS A. ?Duodenal biopsy: ?Fragment of duodenal mucosa with Alyssa gland hyperplasia. B. ?Antral biopsy: ?Mild gastritis. ?See microscopic description and comment. - H. pylori negative C. ?Transverse colon polyp, biopsy: ?Tubular adenoma. D. ?Rectosigmoid polyp at 20 cm, biopsy: ?Tubular adenoma. Past Medical History Allergies No Known Allergies Allergy (Verified 10/07/18 19:20) Home Medications: Ambulatory Orders Medication Instructions Recorded Acarbose [Precose] 25 mg PO TID #90 tab 12/13/17 Albuterol IH (ProAir) [Proair Hfa 2 puff INHALATION Q4H PRN PRN 12/13/17 (SP)Vent Pts] Metformin HCl 500 mg PO BID #90 tab 12/13/17 Surgical History: no surgical history Lives: Spouse/ Significant Other Smoking Status: Current every day smoker Tobacco Use: Cigarettes Alcohol: Occasional Drugs: None - *Family History Maternal History Items: Diabetes Sibling History Items: Diabetes Review of Systems Constitutional: Denies: Chills, Fever, Weight Change HEENT: Denies: Head Aches, Sinus Congestion, Sinus Drainage Cardiovascular: Denies: Chest Pain, Palpitations Respiratory: Denies: Cough, Shortness of breath at rest, Sputum production Gastrointestinal: Reports: Abdominal Pain. Denies: Nausea, Vomiting Genitourinary: Denies: Dysuria Musculoskeletal: Denies: Joint Pain, Joint Tenderness Skin: Denies: Rash, Wounds Neurological: Denies: Numbness, Tingling, Focal weakness Psychiatric: Denies: Anxiety, Depression, Homicidal Ideations, Suicidal Ideations Hematologic/ Lymphatic: Denies: Easy Bruising, Easy Bleeding - Physical Exam General: Alert, Oriented x3, Cooperative HEENT: Atraumatic, PERRLA, EOMI, Normocephalic Neck: Supple, No JVD, Negative Carotid Bruits Lungs: Clear to auscultation, Normal air movement Cardiovascular: Regular rate, No murmurs Abdomen: Bowel Sounds Present, Soft, Tender - mild tenderness in the epigastrium and left sided area without peritoneal signs. Normoactive bowel sounds. Extremities: No edema, Capillary Refill Less than 3 Seconds Skin: No rashes, No breakdown Musculoskeletal: No Tenderness to Palpation of Joints or Extremities Neurological: Cranial nerves II-XII grossly intact Psych/Mental Status: Normal Affect, Appropriate Vital Signs Temp Pulse Resp BP Pulse Ox 98.2 F 84 18 107/53 L 95 10/09/18 08:07 10/09/18 08:07 10/09/18 08:07 10/09/18 08:07 10/09/18 08:07 Oxygen Delivery Method Room Air Weight: 56.2 kg Body Mass Index (BMI) 17.2 Intake and Output for Last 24 Hours 10/07/18 10/08/18 10/09/18 23:59 23:59 23:59 Intake Total 3272 / 3272 1155 / 1155 Balance 3272 / 3272 1155 / 1155 Laboratory Tests Past 24 Hrs 10/08/18 10/08/18 10/08/18 07:48 07:48 07:48 APTT Sodium 136 Potassium 4.2 Chloride 103 Carbon Dioxide 26.0 Anion Gap 7 BUN 17 Creatinine 0.71 Estim Creat Clear Calc 86.85 Est GFR (MDRD) Af Amer 145 Est GFR (MDRD) Non-Af 120 BUN/Creatinine Ratio 24.0 H Glucose 112 H Hemoglobin A1c 8.5 H Calcium 7.2 L Phosphorus Magnesium 1.5 L TSH 1.99 10/08/18 10/09/18 07:48 05:15 APTT 43.4 H Sodium Potassium Chloride Carbon Dioxide Anion Gap BUN Creatinine Estim Creat Clear Calc Est GFR (MDRD) Af Amer Est GFR (MDRD) Non-Af BUN/Creatinine Ratio Glucose Hemoglobin A1c Calcium Phosphorus 2.7 Magnesium TSH Assessment/Plan abdominal pain, CT scan demonstrating small bowel enteritis with significant edema. I ordered ova and parasites and in fecal leukocytes in addition to enteric pathogens. I will plan to perform upper endoscopy, likely with the pediatric colonoscope and attempt to get further into the small bowel to hopefully make it to the area of significant edema on CT scan and planned for biopsy performed at that location. The patient understands the risks, benefits, complications and possible alternatives to treatment via endoscopy and consents to the planned surgical procedure.
--- NOTE | 2018-10-09 09:40 | CON.PCM_ITS ---
Reason for Consult Date of Consultation: 10/09/18 Reason for Consultation: abdominal pain-enteritis History of Present Illness: The patient is a 63 year old M who presents with a complaint of abdominal pain for the last few days. the patient presented to [facility] em ergency department on October 07 with a complaint of one-day history of abdominal pain. The patient relatively unremarkable laboratory studies. He was admitted to the medicine service. CT scan of the abdomen and pelvis demonstrated was felt to be significant small bowel enteritis-rather prominent thickening and edema of the small bowel possibly also including thickening of the stomach. The colon demonstrated stool but did not have it was felt to be la colitis. the patient was started on Cipro and Flagyl orally. There is more for stool studies but the patient has not had bowel movements since admission to the hospital. The patient denies travel outside of the country. He denies eating unusual around foods. He denies anybody else having similar symptoms as at home. Patient was seen in our office in December of this year with a complaint of epigastric pain for approximately one month duration. The patient does smoke. He was seen by my physician's dental office assistant Barb Hayes who noted: The patient is a 62 year old male referred for evaluation. ?Marvin notes a 1- month history of worsening epigastric pain, as well as bloating and intermittent lower abdominal discomfort. ?Patient notes pain seems less severe in the morning, then worsens after drinking his morning coffee. ?Associated symptoms include nausea, decreased appetite, and few episodes of emesis. ?Patient denies hematemesis or coffee-ground emesis. ?He has noted some constipation. ?Denies blood in stools or black tarry stools. ?He notes a significant weight loss of 150 to 116 lbs over the last few months. ?He is a tobacco user, smokes 1/2 pack of cigarettes daily, has COPD. ? Patient reports he had been in good overall health until the last couple of months. ?He was sent to the emergency department at [facility] on 12/13/17 after being seen at Urgent Care for upper respiratory complaints and nausea and was found to have a glucose level of 405. ?He was started on metformin and precose but states he has not been back to his PCP, Dr. Dada Kulkarni, to follow up on his newly diagnosed diabetes. ?The patient also had a chest CT at that ED visit which showed no acute disease. ?More recently on 12/30/17 patient presented to the emergency department for his abdominal complaints and nausea. ?He had an abdominal CT scan which showed gallbladder wall thickening and common bile duct 9.3mm. ?Ultrasound of the right upper quadrant showed small amount of sludge without wall thickening or pericholecystic fluid. ?Dr. Myers was contacted and reviewed the imaging, did not feel this was convincing for triue cholecystitis and recommended outpatient follow-up. ??Labs reviewed in [facility] also showed recent CEA of 5.6. ?Patient has never had a screening colonoscopy. he underwent upper and lower endoscopy on January 28, 2018 which demonstrated gastritis, duodenitis and 2 polyps found in the transverse colon and rectosigmoid area. Pathology returned as: MICROSCOPIC DIAGNOSIS A. ?Duodenal biopsy: ?Fragment of duodenal mucosa with Alyssa gland hyperplasia. B. ?Antral biopsy: ?Mild gastritis. ?See microscopic description and comment. - H. pylori negative C. ?Transverse colon polyp, biopsy: ?Tubular adenoma. D. ?Rectosigmoid polyp at 20 cm, biopsy: ?Tubular adenoma. Past Medical History Allergies No Known Allergies Allergy (Verified 10/07/18 19:20) Home Medications: Ambulatory Orders Medication Instructions Recorded Acarbose [Precose] 25 mg PO TID #90 tab 12/13/17 Albuterol IH (ProAir) [Proair Hfa 2 puff INHALATION Q4H PRN PRN 12/13/17 (SP)Vent Pts] Metformin HCl 500 mg PO BID #90 tab 12/13/17 Surgical History: no surgical history Lives: Spouse/ Significant Other Smoking Status: Current every day smoker Tobacco Use: Cigarettes Alcohol: Occasional Drugs: None - *Family History Maternal History Items: Diabetes Sibling History Items: Diabetes Review of Systems Constitutional: Denies: Chills, Fever, Weight Change HEENT: Denies: Head Aches, Sinus Congestion, Sinus Drainage Cardiovascular: Denies: Chest Pain, Palpitations Respiratory: Denies: Cough, Shortness of breath at rest, Sputum production Gastrointestinal: Reports: Abdominal Pain. Denies: Nausea, Vomiting Genitourinary: Denies: Dysuria Musculoskeletal: Denies: Joint Pain, Joint Tenderness Skin: Denies: Rash, Wounds Neurological: Denies: Numbness, Tingling, Focal weakness Psychiatric: Denies: Anxiety, Depression, Homicidal Ideations, Suicidal Ideations Hematologic/ Lymphatic: Denies: Easy Bruising, Easy Bleeding - Physical Exam General: Alert, Oriented x3, Cooperative HEENT: Atraumatic, PERRLA, EOMI, Normocephalic Neck: Supple, No JVD, Negative Carotid Bruits Lungs: Clear to auscultation, Normal air movement Cardiovascular: Regular rate, No murmurs Abdomen: Bowel Sounds Present, Soft, Tender - mild tenderness in the epigastrium and left sided area without peritoneal signs. Normoactive bowel sounds. Extremities: No edema, Capillary Refill Less than 3 Seconds Skin: No rashes, No breakdown Musculoskeletal: No Tenderness to Palpation of Joints or Extremities Neurological: Cranial nerves II-XII grossly intact Psych/Mental Status: Normal Affect, Appropriate Vital Signs Temp Pulse Resp BP Pulse Ox 98.2 F 84 18 107/53 L 95 10/09/18 08:07 10/09/18 08:07 10/09/18 08:07 10/09/18 08:07 10/09/18 08:07 Oxygen Delivery Method Room Air Weight: 56.2 kg Body Mass Index (BMI) 17.2 Intake and Output for Last 24 Hours 10/07/18 10/08/18 10/09/18 23:59 23:59 23:59 Intake Total 3272 / 3272 1155 / 1155 Balance 3272 / 3272 1155 / 1155 Laboratory Tests Past 24 Hrs 10/08/18 10/08/18 10/08/18 07:48 07:48 07:48 APTT Sodium 136 Potassium 4.2 Chloride 103 Carbon Dioxide 26.0 Anion Gap 7 BUN 17 Creatinine 0.71 Estim Creat Clear Calc 86.85 Est GFR (MDRD) Af Amer 145 Est GFR (MDRD) Non-Af 120 BUN/Creatinine Ratio 24.0 H Glucose 112 H Hemoglobin A1c 8.5 H Calcium 7.2 L Phosphorus Magnesium 1.5 L TSH 1.99 10/08/18 10/09/18 07:48 05:15 APTT 43.4 H Sodium Potassium Chloride Carbon Dioxide Anion Gap BUN Creatinine Estim Creat Clear Calc Est GFR (MDRD) Af Amer Est GFR (MDRD) Non-Af BUN/Creatinine Ratio Glucose Hemoglobin A1c Calcium Phosphorus 2.7 Magnesium TSH Assessment/Plan abdominal pain, CT scan demonstrating small bowel enteritis with significant edema. I ordered ova and parasites and in fecal leukocytes in addition to enteric pathogens. I will plan to perform upper endoscopy, likely with the pediatric colonoscope and attempt to get further into the small bowel to hopefully make it to the area of significant edema on CT scan and planned for biopsy performed at that location. The patient understands the risks, benefits, complications and possible alternatives to treatment via endoscopy and consents to the planned jeffrey gical procedure.
[2018-10-09] MEDS: Ciprofloxacin 400 MG/200 ML BAG 200 MG IV ×2 (09:49→21:04)
--- NOTE | 2018-10-09 12:45 | EGD_PTH ---
PATIENT: NAV SMITH LOC: MS2 U#:[id number] AGE/SX: 63/M [place] [facility] [place] RE10/09/[address]: Dr. Joelle Madsen DO : 1955 BED: 1 DIS: 10/10/2018 SPEC #: [id number] RECD: 10/09/18 14:04 STATUS: KISHORE REQ #: [id number] BETO: 10/09/18 12:[address]: Leroy Myers DEPT: SURGICAL PATHOLOGY RECD BY: Leroy Pulido ENTERED: 10/09/18 14:25 SP TYPE: EGD BIOPSY OTHR DR: DO Dr. Dada Connolly MD Dr. Nana Yaa Koram, MD Dr. Richard Guttman, MD Tissues: A - Jejunum, NOS B - Duodenum, NOS C - Gastric mucous membrane D - Stomach, NOS E - Esophageal mucous membrane F - Esophageal mucous membrane Procedures: Special Stain Group II Surgery Specimen Level IV Alcian Blue/PAS (control) Comments: @ Ordering doctor for SUIV edited from to @ by NIESHA at 10/10/18 0939 @ Submitting doctor edited from to @ by BRITTANYOD at 10/10/18 0939 HEADER OPERATION: EGD ([facility] [place]) PRE-OP DIAGNOSIS: Small bowel inflammation TISSUE SUBMITTED: A - Jejunum 1.1 meter biopsy, B - Duodenal biopsy at 80 cm, C - Antral biopsy, D - Proximal stomach biopsy, E - Distal esophagus biopsy, F - Mid esophagus biopsy MICROSCOPIC DIAGNOSIS A. Jejunum at 1.1 meter, biopsy: Consistent with metastatic melanoma. See comment. B. Duodenum at 80 cm, biopsy: Fragments of duodenal mucosa with Alyssa gland hyperplasia. C. Antral biopsy: Mild gastritis. D. Proximal stomach, biopsy: Mild gastritis. E. Distal esophagus, biopsy: A fragment of gastroesophageal mucosa with chronic inflammation. Intestinal metaplasia (goblet cell metaplasia) is not identified. See comment. F. Mid esophagus, biopsy: A fragment of squamous mucosa with minimal chronic inflammation. SJ:norma 10/20/18 COMMENT A. Immunohistochemistry ([id number]) supports the above diagnosis. C & D. The results of immunohistochemistry for Helicobacter pylori will be reported separately ([id number]). E. Alcian blue/PAS stain with matched control is used in the evaluation of the specimen. This case is sent to [facility] for expert opinion and reviewed by Dr. Cosby and above diagnosis is rendered. The complete report is viewable in patient's EMR. The results of jejunal biopsy are reported to Dr. Myers's office on 10/20/18. This case is discussed with Dr. Kulkarni on 10/20/18. Case has been reviewed in consultation with Dr. Plaza who concurs with the above diagnosis. IDC:AM MICROSCOPIC DESCRIPTION Slides are reviewed. C & D. The specimen shows fragments of gastric mucosa with chronic inflammatory cell infiltrates in the lamina propria consisting of lymphocytes and plasma cells, consistent with mild chronic gastritis. GROSS DESCRIPTION A - Received in fixative is one container labeled with the patient's name and designated jejunum at 1.1 meter. The specimen consists of one irregular fragment of light mayorga soft tissue that measures 0.7 x 0.4 x 0.1 cm. The specimen is totally submitted in one cassette. B - Received in fixative is one container labeled with the patient's name and designated duodenal biopsy at 80 cm. The specimen consists of two irregular fragments of light mayorga soft tissue that in aggregate measure 0.4 x 0.3 x 0.1 cm. The specimen is totally submitted in one cassette. C - Received in fixative is one container labeled with the patient's name and designated antral biopsy. The specimen consists of two irregular fragments of light mayorga soft tissue that in aggregate measure 0.6 x 0.3 x 0.1 cm. The specimen is totally submitted in one cassette. D - Received in fixative is one container labeled with the patient's name and designated proximal stomach biopsy. The specimen consists of one irregular fragment of light mayorga soft tissue that measures 0.4 x 0.2 x 0.1 cm. The specimen is totally submitted in one cassette. E - Received in fixative is one container labeled with the patient's name and designated distal esophagus biopsy. The specimen consists of one irregular fragment of light mayorga soft tissue that measures 0.3 x 0.3 x 0.1 cm. The specimen is totally submitted in one cassette. F - Received in fixative is one container labeled with the patient's name and designated mid esophagus biopsy. The specimen consists of one irregular fragment of light mayorga soft tissue that measures 0.4 x 0.3 x 0.1 cm. The specimen is totally submitted in one cassette. / SJ:rg 10/09/18 TC:0 CPT: 79865 x6, 87838
--- NOTE | 2018-10-09 13:52 | OP.ENDO_ITS ---
Patient Name: Marvin Chavez Procedure Date: 10/09/2018 1:19 PM Date of : 1955 Age: 63 Procedure: Upper GI endoscopy Indications: Generalized abdominal pain, Abnormal CT of the GI tract Providers: Leroy Myers MD Medicines: Monitored Anesthesia Care Patient Profile: This is a 63 year old male. Refer to note in patient chart for documentation of history and physical. Complications: No immediate complications. Procedure: Pre-Anesthesia Assessment: - Prior to the procedure, a History and Physical was performed, and patient medications and allergies were reviewed. The patient is competent. The risks and benefits of the procedure and the sedation options and risks were discussed with the patient. All questions were answered and informed consent was obtained. Patient identification and proposed procedure were verified by the physician, the nurse and the anesthesiologist in the procedure room. Mental Status Examination: alert and oriented. Airway Examination: normal oropharyngeal airway and neck mobility. Respiratory Examination: clear to auscultation. CV Examination: normal. Prophylactic Antibiotics: The patient does not require prophylactic antibiotics. Prior Anticoagulants: The patient has taken no previous anticoagulant or antiplatelet agents. ASA Grade Assessment: II - A patient with mild systemic disease. After reviewing the risks and benefits, the patient was deemed in satisfactory condition to undergo the procedure. The anesthesia plan was to use monitored anesthesia care (MAC). Immediately prior to administration of medications, the patient was re-assessed for adequacy to receive sedatives. The heart rate, respiratory rate, oxygen saturations, blood pressure, adequacy of pulmonary ventilation, and response to care were monitored throughout the procedure. The physical status of the patient was re-assessed after the procedure. After obtaining informed consent, the endoscope was passed under direct vision. Throughout the procedure, the patient's blood pressure, pulse, and oxygen saturations were monitored continuously. The Colonoscope was introduced through the mouth, and advanced to the mid-jejunum. The upper GI endoscopy was accomplished without difficulty. The patient tolerated the procedure well. Scope In: 1:34:16 PM Scope Out: 1:47:11 PM Total Procedure Duration Time 0 hours 12 minutes 55 seconds Findings: Diffuse moderate inflammation, characterized by congestion (edema), erythema and friability was found in the jejunum. Biopsies were taken with a cold forceps for histology. Verification of patient identification for the specimen was done. This was biopsied with a cold forceps for microbiology. Diffuse moderately erythematous mucosa without active bleeding and with no stigmata of bleeding was found in the entire duodenum. Biopsies were taken with a cold forceps for histology. Diffuse moderately congested mucosa was found in the entire examined stomach. Biopsies were taken with a cold forceps for Helicobacter pylori testing using PyloriTek test. Biopsies were taken with a cold forceps for histology. Diffuse moderately congested mucosa was found in the gastric fundus. Biopsies were taken with a cold forceps for histology. The lower third of the esophagus was normal. Biopsies were taken with a cold forceps for histology. The middle third of the esophagus was normal. Biopsies were taken with a cold forceps for histology. Impression: - Suspected jejunal inflammation characterized by congestion (edema), erythema and friability. Biopsied. - Erythematous duodenopathy. Biopsied. - Congestive gastropathy. Biopsied. - Congestive gastropathy. Biopsied. - Normal lower third of esophagus. Biopsied. - Normal middle third of esophagus. Biopsied. Recommendation: - Await pathology results. - Continue present medications. Procedure Code(s): --- Professional --- 54401, Esophagogastroduodenoscopy, flexible, transoral; with biopsy, single or multiple CPT copyright 2017 [employer]. All rights reserved. The codes documented in this report are preliminary and upon cpc coder review may be revised to meet current compliance requirements. Leroy Myers MD 10/09/2018 1:52:27 PM This report has been signed electronically. Number of Addenda: 0 Note Initiated On: 10/09/2018 1:19 PM
[2018-10-09] MEDS: Heparin Injection (Vial) 5,000 UNIT/ML VIAL 5000 UNIT SC ×2 (14:33→21:05)
[2018-10-09] MEDS: 0.9% NaCl Peripheral Flush Adult/Peds IV ×2 (14:42→18:39)
[2018-10-09] MEDS: Famotidine 20 MG Tablet 40 MG PO (15:36)
[2018-10-09] MEDS: DiphenhydrAMINE 50 MG/ML Syringe 25 MG IV ×2 (15:36→18:40)
[2018-10-09] MEDS: Morphine 2 MG/ML Syringe IV (21:04)
[2018-10-10] MEDS: DiphenhydrAMINE 50 MG/ML Syringe 25 MG IV ×2 (00:01→06:30)
[2018-10-10] MEDS: 0.9% NaCl Peripheral Flush Adult/Peds IV (00:01)
[2018-10-10 03:13] VITALS: BP 122/69; PULSE 81; RESP 18; TEMP 35.8; O2SAT 94
[2018-10-10 06:00] LABS: Absolute Lymphocyte Count 0.46 X10^3/ul (0.83-4.51); Absolute Neutrophil Count 4.1 X10^3/uL (2.0-7.7); Differential Indicated SCAN CRITERIA MET; Hematocrit 40.7 % (40-54); Hemoglobin 13.4 g/dl (13.0-16.5); Lymphocyte # 0.46 X10^3/ul (4.0); Lymphocyte % 9.4 % (19-41); Mean Corp Hgb Conc 32.9 g/gl (32-36); Mean Corpuscular Hgb 31.4 pg (27.0-32.0); Mean Corpuscular Volume 95.3 fL (80-94); Mean Platelet Vol. 10.2 fl (6.2-12.0); Monocyte# 0.24 X10^3/uL; Monocyte% 4.9 % (0-10); Neutrophil # 4.13 X10^3/uL (2.7-7.7); Neutrophil % 84.9 % (47-70); POSITIVE COUNT NO; POSITIVE DIFFERENTIAL YES; POSITIVE MORPHOLOGY NO; Platelet Count 269 K/mm3 (150-450); RBC Distribution Width CV 12.6 % (11.6-14.6); Red Blood Count 4.27 M/mm3 (4.6-6.2); White Blood Count 4.9 K/mm3 (4.4-11.0)
[2018-10-10 06:23] LABS: ALB/GLOB Ratio 0.5 RATIO (0.9-2.4); AST(SGOT) 9 U/L (15-37); Alanine Aminotransfer ALT/SGPT 9 U/L (16-61); Albumin, Serum 1.4 g/dL (3.2-5.0); Alkaline Phosphatase 59 U/L (45-117); Anion Gap 10 (5-15); BUN 16 mg/dL (7-18); BUN/Creat Ratio 26.8 RATIO (10-20); Calcium,Total 7.4 mg/dL (8.5-10.1); Chloride 101 mmol/L (98-107); EST Glomerular Filtration Rate 146 mL/min (>60); Est Glom Filt Rate - Afr Amer 177 mL/min (>60); Estimated Creatinine Clearance 102.77 ml/min; Globulin 2.9 g/dL (2.2-4.2); Glucose 200 mg/dL (74-106); Magnesium 1.8 mg/dL (1.6-2.6); Phosphorus 3.2 mg/dL (2.5-4.9); Potassium 4.1 mmol/L (3.5-5.1); Protein, Total 4.3 g/dL (6.4-8.2); Sodium Level 136 mmol/L (136-145)
[2018-10-10] MEDS: Heparin Injection (Vial) 5,000 UNIT/ML VIAL 5000 UNIT SC (06:30)
--- NOTE | 2018-10-10 08:25 | PN_ITS ---
Subjective: She is a 63-year-old male admitted to the hospital with severe abdominal pain and an abnormal CT scan of the abdomen and pelvis showing severe enteritis in the small bowel. He had an EGD performed with a pediatric colonoscope on 10/09/[address] Nunez and this revealed severe edema, erythema and friability of the first portion of the jejunum, erythema and edema of the entire duodenum and erythema edema of the entire stomach. The distal and midportion of the esophagus were normal. Biopsies were taken of the jejunum, duodenum, stomach and lower esophagus. He was started on Solu-Medrol, diphenhydramine and Protonix on 10/09/2018 for possible angioedema. C1q esterase was sent and also a food allergy panel. All events the past 24 hours of been reviewed. He has been afebrile since admission. Vital signs are stable and he is not tachycardic. Current blood pressure is 122/69. White blood cell count has been normal for the duration of his hospital stay. Hemoglobin is 13.4 today and platelets are within normal limits. Electrolytes are normal today and the BUN is 16 with a creatinine of 0.60. Albumin is very low today at 1.4. - Physical Exam Vital Signs Temp Pulse Resp BP Pulse Ox 96.5 F L 81 18 122/69 H 94 10/10/18 03:13 10/10/18 03:13 10/10/18 03:13 10/10/18 03:13 10/10/18 03:13 Oxygen Delivery Method Room Air Weight: 123 lb 14.397 oz Body Mass Index (BMI) 17.2 Intake and Output for Last 24 Hours 10/08/18 10/09/18 10/10/18 23:59 23:59 23:59 Intake Total 3272 / 3272 2405 / 2405 690 / 690 Output Total 200 / 200 Balance 3272 / 3272 2205 / 2205 690 / 690 Laboratory Tests Past 24 Hrs 10/09/18 10/09/18 10/10/18 15:16 15:16 05:20 WBC 4.9 RBC 4.27 L Hgb 13.4 Hct 40.7 MCV 95.3 H MCH 31.4 MCHC 32.9 RDW 12.6 RDW Differential 43.0 Plt Count 269 MPV 10.2 Immature Gran % (Auto) 0.800 Neut % (Auto) 84.9 H Lymph % (Auto) 9.4 L Cooke % (Auto) 4.9 Eos % (Auto) 0.0 Baso % (Auto) 0.0 Absolute Neuts (auto) 4.1 Absolute Lymphs (auto) 0.46 L Total Counted Not Reportable Sodium Potassium Chloride Carbon Dioxide Anion Gap BUN Creatinine Estim Creat Clear Calc Est GFR (MDRD) Af Amer Est GFR (MDRD) Non-Af BUN/Creatinine Ratio Glucose Calcium Phosphorus Magnesium Total Bilirubin AST ALT Alkaline Phosphatase Total Protein Albumin Globulin Albumin/Globulin Ratio Clam Allergen Pending Codfish Allergen Pending [place] Allergen Pending Cow's Milk Allergen Pending Egg White Allergen Pending Peanut Allergen Pending Scallop Allergen Pending Sesame Seed IgE Ab Pending Shrimp Allergen Pending Soybean Allergen Pending [place] Allergen Pending Wheat Allergen Pending C1 Esterase Inhibitor Pending Func C1 Esterase Inhib Pending 10/10/18 05:20 WBC RBC Hgb Hct MCV MCH MCHC RDW RDW Differential Plt Count MPV Immature Gran % (Auto) Neut % (Auto) Lymph % (Auto) Cooke % (Auto) Eos % (Auto) Baso % (Auto) Absolute Neuts (auto) Absolute Lymphs (auto) Total Counted Sodium 136 Potassium 4.1 Chloride 101 Carbon Dioxide 25.0 Anion Gap 10 BUN 16 Creatinine 0.60 L Estim Creat Clear Calc 102.77 Est GFR (MDRD) Af Amer 177 Est GFR (MDRD) Non-Af 146 BUN/Creatinine Ratio 26.8 H Glucose 200 H Calcium 7.4 L Phosphorus 3.2 Magnesium 1.8 Total Bilirubin 0.30 AST 9 L ALT 9 L Alkaline Phosphatase 59 Total Protein 4.3 L Albumin 1.4 L Globulin 2.9 Albumin/Globulin Ratio 0.5 L Clam Allergen Codfish Allergen [place] Allergen Cow's Milk Allergen Egg White Allergen Peanut Allergen Scallop Allergen Sesame Seed IgE Ab Shrimp Allergen Soybean Allergen [place] Allergen Wheat Allergen C1 Esterase Inhibitor Func C1 Esterase Inhib Medical Necessity - Tobacco Use Smoking Status: Current every day smoker Tobacco Use: Cigarettes
[2018-10-10 09:00] VITALS: BP 111/72; PULSE 79; RESP 16; TEMP 36.5; O2SAT 98
[2018-10-10] MEDS: Ciprofloxacin 400 MG/200 ML BAG 200 MG IV (09:53)
--- NOTE | 2018-10-10 10:56 | DCINST_ITS ---
You will use the following diet at home:: Other - low residue, no gastric stimulus, soft Your food should be the consistency of: Soft (bite-sized & easy to chew/swallow) Your liquids should be the consistency of: Regular/Thin Discharge Activity: May not drive while taking narcotic pain medications. Return to work on:: 10/13/18 Call your doctor if you observe: Fever of 101 or Higher, Shortness of breath, Dizziness, Fainting spells, Uncontrolled pain, - - bloody diarrhea or black tarry stool Allergies/Adverse Reactions: Allergies No Known Allergies Allergy (Verified 10/07/18 19:20) Medications to take at Discharge Acarbose [Precose] 25 mg PO TID #90 tab 12/13/17 Albuterol IH (ProAir) [Proair Hfa] 2 puff INHALATION Q4H PRN PRN 12/13/17 Metformin HCl 500 mg PO BID #90 tab 12/13/17 Loratadine [Claritin] 10 mg PO DAILY #30 tablet 10/10/18 Prednisone 10 mg PO UD #30 tab 10/10/18 The following prescriptions were given: Loratadine [Claritin] 10 mg PO DAILY #30 tablet Prednisone 10 mg PO UD #30 tab Primary Care Physician: Dada Kulkarni MD [Primary Care Provider] - Please follow up with your Primary Care Physician in: 5-7 days Test Results: Test results from this visit will be discussed in further detail at your follow- up appointment, if applicable. biopsy reports for biopsies of the duodenum, jejunum, stomach, esophagus H pylori test Please Follow Up With: Leroy Myers MD When: 1 weeks
--- NOTE | 2018-10-10 11:03 | DS.PCM_ITS ---
Discharge Date and Diagnosis Date of Admission: 10/07/18 Date of Discharge: 10/10/18 - Primary Discharge Diagnosis Active and Suspected Problems Abdominal pain (Acute) Abnormal CT of the abdomen (Acute) Angioedema (Suspected) COPD (chronic obstructive pulmonary disease) (Suspected) Increased C1Q inhibitor Shrimp allergy - Secondary Discharge Diagnosis Chronic Problems Diabetes mellitus type 2 in nonobese (Chronic) Nicotine dependence (Chronic) Hospital Course and Treatment Imaging Results: Clinical Impression(s) from Imaging Studies Abdomen/Pelvis CT 10/07/18 20:23 IMPRESSION: Evaluation of the GI tract is limited by absence of oral contrast, but there is definitely extreme thickening of small bowel wall consistent with a severe enteritis. Marked fecal retention. Distended gallbladder, dilated common bile duct and pancreatic duct. Correlate with liver function tests. Electronically Signed: Dustin Rahman MD at 21:53 EST , Service support , Chest X-Ray 10/08/18 17:53 IMPRESSION: Mild hyperaeration. Electronically Signed: Haseeb Church DO at 23:33 EST Tel [phone], Service support , Laboratory Results - last 24 hr 10/10/18 10/10/18 05:20 05:20 WBC 4.9 RBC 4.27 L Hgb 13.4 Hct 40.7 MCV 95.3 H MCH 31.4 MCHC 32.9 RDW 12.6 RDW Differential 43.0 Plt Count 269 MPV 10.2 Immature Gran % (Auto) 0.800 Neut % (Auto) 84.9 H Lymph % (Auto) 9.4 L Cloud % (Auto) 4.9 Eos % (Auto) 0.0 Baso % (Auto) 0.0 Absolute Neuts (auto) 4.1 Absolute Lymphs (auto) 0.46 L Total Counted Not Reportable Sodium 136 Potassium 4.1 Chloride 101 Carbon Dioxide 25.0 Anion Gap 10 BUN 16 Creatinine 0.60 L Estim Creat Clear Calc 102.77 Est GFR (MDRD) Af Amer 177 Est GFR (MDRD) Non-Af 146 BUN/Creatinine Ratio 26.8 H Glucose 200 H Calcium 7.4 L Phosphorus 3.2 Magnesium 1.8 Total Bilirubin 0.30 AST 9 L ALT 9 L Alkaline Phosphatase 59 Total Protein 4.3 L Albumin 1.4 L Globulin 2.9 Albumin/Globulin Ratio 0.[address] Leroy Myers-[facility] general surgery Operations: None Procedures: EGD Summary of Care Provided: The patient is a 63-year-old male with a past medical history of diabetes mellitus who presented to the emergency department at [facility] on 10/07/2018 complaining of severe abdominal pain. He was afebrile in the emergency department and vital signs were unremarkable. White Blood cell count was 9.8 with 80% neutrophils. Hemoglobin and platelets were normal. Sodium was mildly decreased at 133 and the BUN was 20 with a creatinine of 0.67. UA was unremarkable. A noncontrasted CT scan of the abdomen and pelvis was done and showed extreme thickening of the small bowel wall consistent with severe enteritis. He denied any fevers, chills, sick contacts. There was marked fecal retention. Gallbladder was distended and the common bile duct and pancreatic duct were dilated. He has pancreatic atrophy. He was admitted to the hospital and made n.p.o. IV fluids were initiated and he was started on Cipro and Flagyl. He was unable to produce a stool for enteric pathogen panel. Dr. Myers was consulted for endoscopy and the patient had an EGD performed with a pediatric colonoscope on 10/09/2018 and this showed Diffuse moderate inflammation, characterized by congestion (edema), erythema and friability was found in the jejunum. Biopsies were taken with a cold forceps for histology. Verification of patient identification for the specimen was done. This was biopsied with a cold forceps for microbiology. Diffuse moderately erythematous mucosa without active bleeding and with no stigmata of bleeding was found in the entire duodenum. Biopsies were taken with a cold forceps for histology. Diffuse moderately congested mucosa was found in the entire examined stomach. Biopsies were taken with a cold forceps for Helicobacter pylori testing using PyloriTek test. Biopsies were taken with a cold forceps for histology. Diffuse moderately congested mucosa was found in the gastric fundus. Biopsies were taken with a cold forceps for histology. The lower third of the esophagus was normal. Biopsies were taken with a cold forceps for histology. The middle third of the esophagus was normal. Biopsies were taken with a cold forceps for histology. After the EGD we felt he could have angioedema and he was started on steroids, antihistamines and an H2 gosia. The following morning he felt much better and was able to eat a diabetic diet with no gastric stimulus without recurrence of pain. He was discharged home with a prescription for loratadine and prednisone instructed to follow-up with his primary care physician, Dr. Dada Kulkarni in 5-7 days. He will also follow-up with Dr. Nunez in the office in 1 week. The results of the C1q esterase inhibitor and functional C1q were not available at the time of discharge and neither was the food allergy panel. The food allergy panel was positive for reaction to shrimp at a moderate level. The C1q esterase inhibitor was high at 41 but the functional C1 esterase inhibitor was within normal limits at 105. PHYSICAL EXAM: GENERAL: alert, oriented X 3, Cooperative, NAD ORAL: moist mucosa, no mucosal lesions, poor dentition NECK: No JVD, supple, trachea midline LUNGS: CTA, symmetric chest expansion HEART: RRR, Normal S1 and S2, no rub, no gallop ABDOMEN: soft, NT today to palpation, ND, BS present, no guarding with palpation, he continues to have very small nodules palpable throughout the superficial abdominal wall. EXTREMITIES: no edema, no cyanosis, no calf tenderness SKIN: No rashes, no breakdown NEUROLOGIC: no focal neurologic deficits PSYCH: appropriate, normal affect, pleasant - Physical Exam Vital Signs Temp Pulse Resp BP Pulse Ox 97.7 F L 79 16 111/72 98 10/10/18 09:00 10/10/18 09:00 10/10/18 09:00 10/10/18 09:00 10/10/18 09:00 Oxygen Delivery Method Room Air Weight: 123 lb 14.397 oz Body Mass Index (BMI) 17.2 Intake and Output for Last 24 Hours 10/08/18 10/09/18 10/10/18 23:59 23:59 23:59 Intake Total 3272 / 3272 2405 / 2405 690 / 690 Output Total 200 / 200 Balance 3272 / 3272 2205 / 2205 690 / 690 Laboratory Tests Past 24 Hrs 10/09/18 10/09/18 10/10/18 15:16 15:16 05:20 WBC 4.9 RBC 4.27 L Hgb 13.4 Hct 40.7 MCV 95.3 H MCH 31.4 MCHC 32.9 RDW 12.6 RDW Differential 43.0 Plt Count 269 MPV 10.2 Immature Gran % (Auto) 0.800 Neut % (Auto) 84.9 H Lymph % (Auto) 9.4 L Cloud % (Auto) 4.9 Eos % (Auto) 0.0 Baso % (Auto) 0.0 Absolute Neuts (auto) 4.1 Absolute Lymphs (auto) 0.46 L Total Counted Not Reportable Sodium Potassium Chloride Carbon Dioxide Anion Gap BUN Creatinine Estim Creat Clear Calc Est GFR (MDRD) Af Amer Est GFR (MDRD) Non-Af BUN/Creatinine Ratio Glucose Calcium Phosphorus Magnesium Total Bilirubin AST ALT Alkaline Phosphatase Total Protein Albumin Globulin Albumin/Globulin Ratio Clam Allergen Pending Codfish Allergen Pending Staples Allergen Pending Cow's Milk Allergen Pending Egg White Allergen Pending Peanut Allergen Pending Scallop Allergen Pending Sesame Seed IgE Ab Pending Shrimp Allergen Pending Soybean Allergen Pending [place] Allergen Pending Wheat Allergen Pending C1 Esterase Inhibitor Pending Func C1 Esterase Inhib Pending 10/10/18 05:20 WBC RBC Hgb Hct MCV MCH MCHC RDW RDW Differential Plt Count MPV Immature Gran % (Auto) Neut % (Auto) Lymph % (Auto) Cloud % (Auto) Eos % (Auto) Baso % (Auto) Absolute Neuts (auto) Absolute Lymphs (auto) Total Counted Sodium 136 Potassium 4.1 Chloride 101 Carbon Dioxide 25.0 Anion Gap 10 BUN 16 Creatinine 0.60 L Estim Creat Clear Calc 102.77 Est GFR (MDRD) Af Amer 177 Est GFR (MDRD) Non-Af 146 BUN/Creatinine Ratio 26.8 H Glucose 200 H Calcium 7.4 L Phosphorus 3.2 Magnesium 1.8 Total Bilirubin 0.30 AST 9 L ALT 9 L Alkaline Phosphatase 59 Total Protein 4.3 L Albumin 1.4 L Globulin 2.9 Albumin/Globulin Ratio 0.5 L Clam Allergen Codfish Allergen Staples Allergen Cow's Milk Allergen Egg White Allergen Peanut Allergen Scallop Allergen Sesame Seed IgE Ab Shrimp Allergen Soybean Allergen [place] Allergen Wheat Allergen C1 Esterase Inhibitor Func C1 Esterase Inhib Discharge Activity: May not drive while taking narcotic pain medications. Return to work on:: 10/13/18 Call your doctor if you observe: Fever of 101 or Higher, Shortness of breath, Dizziness, Fainting spells, Uncontrolled pain, - - bloody diarrhea or black tarry stool Home Medications: Medications to take at Discharge Acarbose [Precose] 25 mg PO TID #90 tab 12/13/17 Albuterol IH (ProAir) [Proair Hfa] 2 puff INHALATION Q4H PRN PRN 12/13/17 Metformin HCl 500 mg PO BID #90 tab 12/13/17 Hydrocodone/Acetaminophen [Vicodin 5-300 mg Tablet] 1 ea PO Q4H PRN PRN 7 Days #30 tab 10/10/18 Loratadine [Claritin] 10 mg PO DAILY #30 tablet 10/10/18 Prednisone 10 mg PO UD #30 tab 10/10/18 Ondansetron [Zofran Odt] 4 mg PO Q8H PRN PRN #10 tab 10/15/18 Following Prescrptions Were Given to Patient: Hydrocodone/Acetaminophen [Vicodin 5-300 mg Tablet] 1 ea PO Q4H PRN PRN 7 Days #30 tab PRN Reason: abdominal pain Loratadine [Claritin] 10 mg PO DAILY #30 tablet Prednisone 10 mg PO UD #30 tab Primary Care Physician: Dada Kulkarni MD [Primary Care Provider] - Please follow up with your Primary Care Physician in: 5-7 days Please Follow Up With: Leroy Myers MD When: 1 weeks Minutes spent on discharge:: 40 Patient Condition:: Stable Medical Necessity - Tobacco Use Smoking Status: Current every day smoker Tobacco Use: Cigarettes Meaningful Use Info Meaningful Use Diagnoses (Choose all that apply): None applicable Code Visit Inpatient E&M: 11609 Disch Hosp
--- NOTE | 2018-10-13 11:19 | CASEMGMT ---
BRI VELASQUEZ Discharge Follow-up Phone Call: [place]: Cole Strata: 3 Call Date: 10/10/18 Discharge Date: 10/13/18 Time of Call: 1105 Duration: 10 minutes ? Admitting Diagnosis: Enteritis This RN CM contacted pt via phone regarding discharge follow-up. Pt states he is feeling better. States he continues to have some abdominal pain but states it is much less than while he was in the hospital. Pt questioned appointment with Dr. Myers for bumps on his arm that Dr. Myers wanted to see him for in 3-4 days. Pt states he has to return to work on the and it will be difficult for him to make an appointment after this date. Attempted to contact Dr. Myers's office for an appointment time but he is not in today, next available appointment is October 23. Attempted to call pt back with the information, voicemail received. Message left requesting pt call Dr. Myers's office to schedule the follow-up appointment. Phone number provided. Noted Vicodin is listed in DC summary but not instructions. Questioned if he received this. A call back number for this RN RON provided if pt has any further questions or concerns. Bryan Anthony, RN
[2018-10-13 16:06] LABS: Clam <0.10 kU/L (Class 0); Codfish <0.10 kU/L (Class 0); Corn <0.10 kU/L (Class 0); Egg, White <0.10 kU/L (Class 0); Milk (Cow) <0.10 kU/L (Class 0); Peanut <0.10 kU/L (Class 0); SCALLOP <0.10 kU/L (Class 0); Shrimp 0.63 kU/L (Class II); Soybean <0.10 kU/L (Class 0); Walnut, (Food) <0.10 kU/L (Class 0); Wheat <0.10 kU/L (Class 0)
[2018-10-14 11:52] LABS: C1 EST Inhibitor, Functional 105 (.); C1 Esterase Inhibitor, Quant 41 mg/dL (21-39); SESAME SEED <0.10 kU/L (Class 0)
--- OUTSIDE RECORDS SUMMARY | 2019-01-09 06:24 | XMS RPT_ITS ---
:1955 Author Organization OHIP Support Name Relationship Address Phone [employer] Unavailable [address] + [address] [place] [address] SCHAFRATH, [place] Unavailable [address] + [address] [place] [address] [employer] Unavailable [address] + [address] [place] [address] SCHAFRATH, [place] Unavailable [address] + [address] [place] [address] [employer] Unavailable [address] + [address] [place] [address] SCHAFRATH, [place] Unavailable [address] + [address] [place] [address] [employer] Unavailable [address] + [address] [place] [address] SCHAFRATH, [place] Unavailable [address] + [address] [place] [address] [employer] Unavailable [address] + [address] [place] [address] SCHAFRATH, [place] Unavailable [address] + [address] [place] [address] [employer] Unavailable [address] + [address] [place] [address] SCHAFRATH, [place] Unavailable [address] + [address] [place] [address] [employer] Unavailable [address] + [address] [place] [address] SCHAFRATH, [place] Unavailable [address] [place] [address] [employer] Unavailable [address] + [address] [place] [address] SCHAFRATH, [place] Unavailable [address] [place] [address] [employer] Unavailable [address] + [address] [place] [address] SCHAFRATH, [place] Unavailable [address] [place] [address] [employer] Unavailable [address] + [address] [place] [address] SCHAFRATH, [place] Unavailable [address] [place] [address] [employer] Unavailable [address] + [address] [place] [address] SCHAFRATH, [place] Unavailable [address] [place] [address] [employer] Unavailable [address] + [address] [place] [address] SCHAFRATH, [place] Unavailable [address] [place] [address] [employer] Unavailable [address] + [address] [place] [address] SCHAFRATH, AMERCIA Unavailable [address] [place] [address] [employer] Unavailable [address] + [address] [place] [address] SCHAFRATH, [place] Unavailable [address] [place] [address] [employer] Unavailable [address] + [address] [place] [address] SCHAFRATH, [place] Unavailable [address] [place] [address] [employer] Unavailable [address] + [address] [place] [address] SCHAFRATH, [place] Unavailable [address] [place] [address] [employer] Unavailable [address] + [address] [place] [address] SCHAFRATH, [place] Unavailable [address] [place] [address] [employer] Unavailable [address] + [address] [place] [address] SCHAFRATH, [place] Unavailable [address] [place] [address] [employer] Unavailable [address] + [address] [place] [address] SCHAFRATH, [place] Unavailable [address] [place] [address] [employer] Unavailable [address] + [address] [place] [address] SCHAFRATH, [place] Unavailable [address] [place] [address] Care Team Providers Name Role Phone JOE GANDARA (AFTER SCHOOL PROGRAM COORDINATOR) Referring Unavailable JOE GANDARA (AFTER SCHOOL PROGRAM COORDINATOR) Referring Unavailable CHARLIE KRAUS (AFTER SCHOOL PROGRAM COORDINATOR) Attending Unavailable BARB REED (PA) Attending Unavailable BARB REED (PA) Attending Unavailable Kulkarni, Dada Primary Care Unavailable Koram, Kim Nicole Admitting Unavailable Sementony, Antoinette Attending Unavailable Conrado Myers Consulting Unavailable Koram, Kim Nicole Admitting Unavailable Koram, Kim Nicole Attending Unavailable Kulkarni, Dada Primary Care Unavailable Koram, Kim Nicole Consulting Unavailable Koram, Kim Nicole Admitting Unavailable Sementony Antoinette Attending Unavailable Kulkarni, Dada Primary Care Unavailable Conrado Myers Consulting Unavailable Sementi, Antoinette Consulting Unavailable Koram, Kim Nicole Admitting Unavailable Sementi, Antoinette Attending Unavailable Kulkarni, Dada Primary Care Unavailable Conrado Myers Consulting Unavailable Sementi, Antoinette Consulting Unavailable Kulkarni, Dada Attending Unavailable Kulkarni, Dada Referring Unavailable Kulkarni, Dada Primary Care Unavailable Kulkarni, Dada Attending Unavailable Kulkarni, Dada Referring Unavailable Kulkarni, Dada Primary Care Unavailable Kulkarni, Dada Attending Unavailable Kulkarni, Dada Referring Unavailable Kulkarni, Dada Primary Care Unavailable Conrado Myers Attending Unavailable Conrado Myers Referring Unavailable Kulkarni, Dada Primary Care Unavailable Leander Arce Attending Unavailable Yazmin Delbert Referring Unavailable Kulkarni, Dada Primary Care Unavailable Kulkarni, Dada Attending Unavailable Kulkarni, Dada Primary Care Unavailable Kulkarni, Dada Attending Unavailable Kulkarni, Dada Referring Unavailable Kulkarni, Dada Primary Care Unavailable Kulkarni, Dada Primary Care Unavailable Michell Ornelas Attending Unavailable Kulkarni, Dada Attending Unavailable Kulkarni, Dada Referring Unavailable Kulkarni, Dada Primary Care Unavailable Kulkarni, Dada Attending Unavailable Kulkarni, Dada Referring Unavailable Kulkarni, Dada Primary Care Unavailable Michael Monaco Attending Unavailable Primay Care Physicia, No Primary Care Unavailable Kulkarni, Dada Primary Care Unavailable Tate Sloan Attending Unavailable Kim Ray Admitting Unavailable Sementony, Antoinette Attending Unavailable Kulkarni, Dada Primary Care Unavailable Conrado Myers Consulting Unavailable Sementony, Antoinette Consulting Unavailable Kulkarni, Dada Attending Unavailable Kulkarni, Dada Primary Care Unavailable Kulkarni, Dada Attending Unavailable Kulkarni, Dada Referring Unavailable Kulkarni, Dada Primary Care Unavailable Kulkarni, Dada Attending Unavailable Kulkarni, Dada Referring Unavailable Kulkarni, Dada Primary Care Unavailable PROBLEMS PROBLEMS DATE TYPE CONDITION / CODE ATTENDING STATUS SOURCE 10/16/2018 Unknown K52.9 - Noninfective Sementi, Active [place] gastroenteritis and Antoinette [facility] colitis, unspecified Hospital / K52.9(ICD-10) Repository 08/20/2018 Unknown E11.9 - Type 2 Shad Dada Active [place] diabetes mellitus Community without complications Hospital / E11.9(ICD-10) Repository 01/31/2018 Unknown 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 / Kadeem [facility] P83.5(ICD-10) Hospital Repository 01/10/2018 Unknown E88.09 - Other Kulkarni, Dada Active [place] disorders of Community plasma-protein Hospital metabolism, not Repository elsewhere classified / E88.09(ICD-10) 01/10/2018 Unknown Z01.818 - Encounter Kulkarni, Dada Active [place] for other Community preprocedural Hospital examination / Repository Z01.818(ICD-10) 12/24/2017 Unknown R10.30 - Lower Kulkarni, Dada Active [place] abdominal pain, Community unspecified / Hospital R10.30(ICD-10) Repository 12/16/2017 Unknown R16.1 - Splenomegaly, Kulkarni, Dada Active [place] not elsewhere Community classified / Hospital R16.1(ICD-10) Repository 12/12/2017 Active Nausea with vomiting, NA Active [place] unspecified / [facility] Main R11.2(ICD-10) [place] Repository 12/10/2017 Active Cough / R05(ICD-10) NA Active [facility] Main [place] Repository 12/10/2017 Active Nicotine dependence, NA Active [place] unspecified, Clinic Main uncomplicated / [place] F17.200(ICD-10) Repository PROCEDURES PROCEDURES No Procedure Records FoundRESULTS RESULTS CNCO Observed: 10/24/2018 Status: COMPLETED Source: [place] 12:00 AM [facility] Letter Text Nav Chavez October 24, 2018 [facility] [address], [place] [address] 10/24/2018 [facility]# [id number] Nav Chavez [address] [facility] [address] Dear Mr. Chavez: We have been unsuccessful in reaching you by phone. Please call our office at for further instructions. Thank you. Sincerely, General Surgery CNPN Observed: 10/17/2018 Status: COMPLETED Source: [place] 12:00 AM [facility] Telephone (GENSWS) NAV CHAVEZ ([id number]) 1955 Date Time Provider Department 10/17/18 CONRADO MYERSS During your visit today, we recorded the following information about you: Elfego Cunha BARTENDER 10/17/2018 3:41 PM Signed Please call pt to schedule follow up EGD appt from scope on 10/09 with RG 7-14 days post op Louisa Medellin Psr 10/20/2018 8:55 AM Signed 1st attempt to reach patient to schedule f/u.Louisa Medellin Psr Kiana Miranda Psr 10/23/2018 10:21 AM Signed 2nd attempt LM to schedule post op with Dr. Myers for EGD. Kiana Cantrellr 10/24/2018 2:04 PM Signed 3rd attempt LM to schedule post op with Dr. Myers for EGD. Letter was also mailed to home address. Elfego Cunha TRINI 10/24/2018 2:09 PM Signed f/u appt not needed. Receieved call from PCP advising pt is Allergies As of Date: 10/17/2018 (No Known Allergies) Date Reviewed: 02/06/2018 Reviewed by: Barb Costa) - Fully Assessed Reason for Visit: Appointment [186] Prescriptions as of 10/17/2018 Sig: HYDROCODONE 5 MG-ACETAMINOPHE* Take 1 tablet by mouth every * CEPHALEXIN 500 MG CAPSULE Take 500 mg by mouth three ti* OMEPRAZOLE 40 MG CAPSULE,KENNEDY* Take 1 capsule by mouth twice* ACARBOSE 50 MG TABLET take 1/2 tablet by mouth thre* DOXYCYCLINE HYCLATE 100 MG CA* Take 100 mg by mouth twice da* METFORMIN 500 MG TABLET Take 500 mg by mouth twice da* OMEPRAZOLE 40 MG CAPSULE,KENNEDY* Take 1 capsule by mouth once * GUAIFENESIN ER 600 MG TABLET,* Take 2 tablets by mouth twice* ALBUTEROL SULFATE HFA 90 MCG/* Inhale 2 Puffs as instructed * Problem List As Of Date 10/17/2018 Noted Resolved Abdominal pain [R10.9] INVALID FOR* More... Abnormal loss of weight [R63.4] INVALID FOR* More... Encounter Status:Closed by LOUISA PALACIO on 10/20/18 DISCHARGE SUMMARY Observed: 10/16/2018 Status: F Source: [place] 1:50 PM [facility] Medical Records Department [address] [place] [address] Discharge Summary 10/10/18 1101 MR#: [id number] Acct: [id number] Name: NAV CHAVEZ Rep #: [id number] : 1955 63 From: Per Madsen DO PCP: Dada Kulkanri MD Status: DIS IN Y Location: [facility] [id number] Discharge Date and Diagnosis Date of Admission: 10/07/18 Date of Discharge: 10/10/18 - Primary Discharge Diagnosis Active and Suspected Problems Abdominal pain (Acute) Abnormal CT of the abdomen (Acute) Angioedema (Suspected) COPD (chronic obstructive pulmonary disease) (Suspected) Increased C1Q inhibitor Shrimp allergy - Secondary Discharge Diagnosis Chronic Problems Diabetes mellitus type 2 in nonobese (Chronic) Nicotine dependence (Chronic) Hospital Course and Treatment Imaging Results: Clinical Impression(s) from Imaging Studies Abdomen/Pelvis CT 10/07/18 20:23 IMPRESSION: Evaluation of the GI tract is limited by absence of oral contrast, but there is definitely extreme thickening of small bowel wall consistent with a severe enteritis. Marked fecal retention. Distended gallbladder, dilated common bile duct and pancreatic duct. Correlate with liver function tests. Electronically Signed: Dustin Rahman MD at 21:53 EST , Service support , Chest X-Ray 10/08/18 17:53 IMPRESSION: Mild hyperaeration. Electronically Signed: Haseeb Church DO at 23:33 EST Tel [phone], Service support , Laboratory Results - last 24 hr WBC 4.9 RBC 4.27 L Hgb 13.4 Hct 40.7 MCV 95.3 H MCH 31.[address] Conrado Myers[facility] general surgery Operations: None Procedures: EGD Summary of Care Provided: The patient is a 63-year-old male with a past medical history of diabetes mellitus who presented to the emergency department at [facility] on 10/07/2018 complaining of severe abdominal pain. He was afebrile in the emergency department and vital signs were unremarkable. White Blood cell count was 9.8 with 80% neutrophils. Hemoglobin and platelets were normal. Sodium was mildly decreased at 133 and the BUN was 20 with a creatinine of 0.67. UA was unremarkable. A noncontrasted CT scan of the abdomen and pelvis was done and showed extreme thickening of the small bowel wall consistent with severe enteritis. He denied any fevers, chills, sick contacts. There was marked fecal retention. Gallbladder was distended and the common bile duct and pancreatic duct were dilated. He has pancreatic atrophy. He was admitted to the hospital and made n.p.o. IV fluids were initiated and he was started on Cipro and Flagyl. He was unable to produce a stool for enteric pathogen panel. Dr. Myers was consulted for endoscopy and the patient had an EGD performed with a pediatric colonoscope on 10/09/2018 and this showed Diffuse moderate inflammation, characterized by congestion (edema), erythema and friability was found in the jejunum. Biopsies were taken with a cold forceps for histology. Verification of patient identification for the specimen was done. This was biopsied with a cold forceps for microbiology. Diffuse moderately erythematous mucosa without active bleeding and with no stigmata of bleeding was found in the entire duodenum. Biopsies were taken with a cold forceps for histology. Diffuse moderately congested mucosa was found in the entire examined stomach. Biopsies were taken with a cold forceps for Helicobacter pylori testing using PyloriTek test. Biopsies were taken with a cold forceps for histology. Diffuse moderately congested mucosa was found in the gastric fundus. Biopsies were taken with a cold forceps for histology. The lower third of the esophagus was normal. Biopsies were taken with a cold forceps for histology. The middle third of the esophagus was normal. Biopsies were taken with a cold forceps for histology. After the EGD we felt he could have angioedema and he was started on steroids, antihistamines and an H2 gosia. The following morning he felt much better and was able to eat a diabetic diet with no gastric stimulus without recurrence of pain. He was discharged home with a prescription for loratadine and prednisone instructed to follow- up with his primary care physician, Dr. Dada Kulkarni in 5-7 days. He will also follow- up with Dr. Nunez in the office in 1 week. The results of the C1q esterase inhibitor and functional C1q were not available at the time of discharge and neither was the food allergy panel. The food allergy panel was positive for reaction to shrimp at a moderate level. The C1q esterase inhibitor was high at 41 but the functional C1 esterase inhibitor was within normal limits at 105. PHYSICAL EXAM: GENERAL: alert, oriented X 3, Cooperative, NAD ORAL: moist mucosa, no mucosal lesions, poor dentition NECK: No JVD, supple, trachea midline LUNGS: CTA, symmetric chest expansion HEART: RRR, Normal S1 and S2, no rub, no gallop ABDOMEN: soft, NT today to palpation, ND, BS present, no guarding with palpation, he continues to have very small nodules palpable throughout the superficial abdominal wall. EXTREMITIES: no edema, no cyanosis, no calf tenderness SKIN: No rashes, no breakdown NEUROLOGIC: no focal neurologic deficits PSYCH: appropriate, normal affect, pleasant - Physical Exam Vital Signs Temp Pulse Resp BP Pulse Ox 97.7 F L 79 16 111/72 98 10/10/18 09:00 10/10/18 09:00 10/10/18 09:00 10/10/18 09:00 10/10/18 09:00 Oxygen Delivery Method Room Air Weight: 123 lb 14.397 oz Body Mass Index (BMI) 17.2 Intake and Output for Last 24 Hours Intake Total 3272 / 3272 2405 / 2405 690 / 690 Output Total 200 / 200 Balance 3272 / 3272 2205 / 2205 690 / 690 Laboratory Tests Past 24 Hrs WBC 4.9 RBC 4.27 L Hgb 13.4 Hct 40.7 MCV 95.3 H WBC RBC Hgb Hct MCV Discharge Activity: May not drive while taking narcotic pain medications. Return to work on:: 10/13/18 Call your doctor if you observe: Fever of 101 or Higher, Shortness of breath, Dizziness, Fainting spells, Uncontrolled pain, - - bloody diarrhea or black tarry stool Home Medications: Medications to take at Discharge Acarbose [Precose] 25 mg PO TID #90 tab 12/13/17 Albuterol IH (ProAir) [Proair Hfa] 2 puff INHALATION Q4H PRN PRN 12/13/17 Metformin HCl 500 mg PO BID #90 tab 12/13/17 Hydrocodone/Acetaminophen [Vicodin 5-300 mg Tablet] 1 ea PO Q4H PRN PRN 7 Days #30 tab 10/10/18 Loratadine [Claritin] 10 mg PO DAILY #30 tablet 10/10/18 Prednisone 10 mg PO UD #30 tab 10/10/18 Ondansetron [Zofran Odt] 4 mg PO Q8H PRN PRN #10 tab 10/15/18 Following Prescrptions Were Given to Patient: Hydrocodone/Acetaminophen [Vicodin 5-300 mg Tablet] 1 ea PO Q4H PRN PRN 7 Days #30 tab PRN Reason: abdominal pain Loratadine [Claritin] 10 mg PO DAILY #30 tablet Prednisone 10 mg PO UD #30 tab Primary Care Physician: Dada Kulkarni MD [Primary Care Provider] - Please follow up with your Primary Care Physician in: 5-7 days Please Follow Up With: Conrado Myers MD When: 1 weeks Minutes spent on discharge:: 40 Patient Condition:: Stable Medical Necessity - Tobacco Use Smoking Status: Current every day smoker Tobacco Use: Cigarettes Meaningful Use Info Meaningful Use Diagnoses (Choose all that apply): None applicable Code Visit Inpatient E AND M: 39731 Disch Hosp 10/16/18 1350 <Electronically signed by Per Madsen DO> Date M Stephanie Madsen DO Cosigner Signature (if applicable): Date CC: Antoinette Madsen; Dada Kulkarni MD; Conrado Myers MD Signed DISCHARGE INSTRUCTION Observed: 10/15/2018 Status: F Source: [place] 11:25 PM [facility] Medical Records Department [address] [place] [address] Discharge Instruction 10/15/181 MR#: [id number] Acct: [id number] Name: NAV CHAVEZ Rep #: [id number] : 1955 63 From: Tate Sloan MD PCP: Dada Kulkarni MD Status: DEP ER ED Disposition - Plan for ED Patient: Disposition: Home or Assisted Living Chief Complaint: Abd Pain Instructions: ED Gastroenteritis Viral Prescriptions: Ondansetron [Zofran Odt] 4 mg PO Q8H PRN PRN #10 tab PRN Reason: Nausea Referrals: Dada Kulkarni MD [Primary Care Provider] - 3-5 Days Tamie Fraser [NON-STAFF] - Additional Instructions: Watch blood sugars closely. May restart your metformin on Saturday. You have to hold it for 24 hours due to the CAT scan contrast. Plenty of fluids and rest. Zofran for nausea. Return if feeling worse. Follow-up with your doctor Call follow-up with a computer networker as soon as possible and very concerned that skin lesion on your right arm could be some form of skin cancer. What to do if you have Problems For any increased pain, shortness of breath, bleeding, nausea or vomiting, chest pain, or any unexpected problems, contact your Primary Care Provider. Call [facility] [employer] [facility] ([phone]) or report to the closest Emergency Room. Call 911 if necessary. 10/15/18 2325 <Electronically signed by Tate Sloan MD> Date Tate Sloan MD Cosigner Signature (If Indicated): Date CC: Dada Kulkarni MD EMERGENCY DEPARTMENT Observed: 10/15/2018 Status: F Source: [place] SUMMARY 11:25 PM [facility] Medical Records Department [address] [place] [address] Emergency Department Summary 10/15/18 1649 MR#: [id number] Acct: [id number] Name: NAV CHAVEZ Rep #: [id number] : 1955 63 From: Tate Sloan MD PCP: Dada Kulkarni MD Status: DEP ER - ER Visit Summary Date of Service: 10/15/18 Chief Complaint: Bilateral lower quadrant abdominal pain History of Present Illness: The patient is a 63 M history of noncemented diabetes and COPD. Admitted to the hospital last week for several days before diagnosed with enteritis. Prior hernia repair but no other abdominal surgeries no recent abdominal surgeries. He did have upper endoscopy while in the hospital. Patient states the pain is in bilateral lower quadrants. No fever. No vomiting or diarrhea. No melena. No dysuria. Also states he has a large skin mass on his right deltoid under for 2 months I explained this will need a computer networker follow-up. And also has lumps diffusely on his skin is been new 2 weeks. Physical Examination: Vital signs are stable. Afebrile. No distress. HEENT atraumatic. Dry mucous membranes. Neck nontender no lymphadenopathy. Lungs clear breath coarse breath sounds but no rales, rhonchi or wheezing. Heart tachycardic rate about 50 no murmur. Chest wall nontender. Abdomen soft nondistended normal bowel sounds no peritoneal signs. Both lower quadrants but there is no reproducible abdominal tenderness. No hernias or masses. Nondistended. No obstruction. Extremities moving all 4. Neurovascular intact. Calves are nontender without edema. Neurologically is awake alert with no focal motor deficits. Back nontender. Skin has a very large mass on the right upper deltoid area but very well could be a skin cancer. Is been there for 2 months. It is multicolored. Patient also has raised areas on his skin diffusely on his back and chest. Test Results: CBC White count of to help with 17,000. Afebrile his white count is elevated due to the steroids and has been started on. Also his blood sugar is elevated for the same reason. He has to hold his metformin do the CT with contrast. He will be given a dose of subcu insulin here prior to discharge. Hemoglobin 14. No bands. Electrolytes sodium 130. Previously was 133. Gap of 8. Glucose 388. BUN of [address] UA [address] abdomen pelvis with IV contrast showed improved enteritis. Small ascites. And biliary duct dilatation all seen previously. The enteritis was actually much improved from the most recent CT. Emergency Department Course and Treatment: Morphine and Zofran for pain and nausea. A liter of fluid.On repeat exam patient is doing well. We discussed all his test results. They are comfortable being discharged home. He knows he needs close follow-up with a computer networker for the right arm mass that could be a malignancy. Also subcu insulin for his hyperglycemia. Treatment Plan: Discharge home. Follow-up with computer networker. Disposition: Discharge Impression: Acute abdominal pain secondary to enteritis Right upper arm skin mass rule out malignancy Acute hyperglycemia with a history of rmc-vflmzko-cnvomamrq diabetes This note was generated with [employer] Systems[employer] software. It may contain incorrect words, spelling, and punctuation that were not noted in review of the chart prior to signing ED Disposition - Plan for ED Patient: Chief Complaint: Abd Pain Referrals: Dada Kulkarni MD [Primary Care Provider] - What to do if you have Problems For any increased pain, shortness of breath, bleeding, nausea or vomiting, chest pain, or any unexpected problems, contact your Primary Care Provider. Call [facility] ([phone]) or report to the closest Emergency Room. Call 911 if necessary. 10/15/18 6772 <Electronically signed by Tate Sloan MD> Date Tate Sloan MD Cosigner Signature (If Indicated): Date CC: Dada Kulkarni MD URINALYSIS, COMPLETE Collected: 10/15/2018 Status: F Source: [place] 6:45 PM [facility] Order Comment: Order Date: 10/15/18 Has pt arrived? Y How was Urine Obtained? CLEAN CATCH TYPE CODE TESTS RESULT OUT OF RANGE REFERENCE UNITS LAB L400.3000 Yellow COLOR Normal Yellow LAB L400.3050 Clear Normal CLARITY Clear LAB L400.3200 Normal mg/dl High GLUCOSE, UR 1000 LAB L400.3300 Negative mg/dL Normal BILIRUBIN URINE Negative LAB L400.3400 Negative mg/dl High 50 KETONE UR LAB L400.3465 1.002-1.030 Normal SP.GR. DIPSTX 1.015 LAB L400.3550 5.0 - 8.0 pH UR Normal 5.0 LAB L400.3600 Negative mg/dl High PROT 15 DIPSTX LAB L400.3700 Normal mg/dl Normal UROBILI Normal LAB L400.3750 Negative Normal NITRITE UR Negative LAB L400.3780 Negative /ul Normal OCCULT BLOOD-UR Negative LAB L400.3800 Negative /ul LEUK Normal ESTERASE Negative LAB L400.4050 0-5 /hpf WBC 0 Normal SEEN LAB L400.4100 0-5 /hpf 0 Normal RBC-UA SEEN LAB L400.4150 0-5 /hpf SQUAM Normal EPI 0-5 SEEN LAB L400.4300 None Seen /hpf 0 Normal BACTERIA SEEN LAB L400.4350 <or=2+ /hpf 0 Normal MUCUS, URINE SEEN Performed By: #### L400.0001 #### [facility] [address] [place], [address] ABDOMEN/PELVIS W IV CONT Observed: 10/15/2018 Status: F Source: [place] 6:11 PM [facility] Imaging Services [address] [place] [address] Abdomen/Pelvis W IV Cont ONLY MR#: [id number] Acct: [id number] Name: NAV CHAVEZ Rep #: [id number] : 1955 M 63 From: Jayy Luna MD PCP: Shad FLORES,Dada Status: REG ER Study: Abdomen/Pelvis W IV Cont ONLY Date of Exam: 10/15/18 Exam# [id number] Ordering Dr: Tate Sloan MD STUDY: CT ABDOMEN AND PELVIS WITH CONTRAST REASON FOR EXAM: Male, 63 years old. Abdominal pain. RADIATION DOSAGE (If Supplied By Facility): CTDIvol = ( 11.25 ) mGy, DLP = ( 471.52 ) mGycm TECHNIQUE: Transaxial images were obtained from the dome of the diaphragm to the symphysis pubis without oral contrast. 100ML ml of Isovue 300 contrast was administered. Sagittal and coronal images were reconstructed. Individualized dose optimization techniques were used for this CT. COMPARISON: 10/07/2018 FINDINGS: There is a trace left pleural effusion with overlying atelectasis. The visualized portions of the heart and pericardium are within normal limits. There are no calcified gallstones present. There is stable mild biliary duct dilatation. The liver is within normal limits. There are no suspicious hepatic lesions. There are stable cysts noted in the spleen. The pancreas is within normal limits. The adrenal glands are within normal limits. There are no renal or ureteral stones. There is no hydronephrosis. There are no focal renal lesions. Normal visualized stomach. There is no bowel obstruction. There is bowel wall thickening throughout the small bowel which is consistent with enteritis. This is decreased when compared with the prior exam. The appendix is not visualized, but there are no findings to suggest acute appendicitis. The aorta is normal in caliber. There is a small amount of free fluid. There is no free air, fluid collection or lymphadenopathy. There are no destructive osseous lesions. CT/Abdomen/Pelvis W IV Cont ONLY IMPRESSION: Small bowel wall thickening which is consistent with enteritis. This is decreased when compared with the prior exam. Small amount of ascites. Stable mild biliary duct dilatation. Trace left pleural effusion with overlying atelectasis. Electronically Signed: Jayy Luna, at 19:01 EST Tel , Service support , CC: Dada Kulkarni MD; Tate Sloan MD [employer] Mechanic: Signed BASIC METABOLIC Collected: 10/15/2018 Status: F Source: [place] PROFILE (BMP) 5:15 PM [facility] TYPE CODE TESTS RESULT OUT OF RANGE REFERENCE UNITS LAB L501.0100 74-106 mg/dL High GLU 388 Result Comment: Glucose result greater than or equal to 200 mg/dL suggests DIABETES MELLITUS per A.D.A. criteria. Please note revised GLUCOSE reference range effective 2017. LAB L501.1000 7-18 mg/dL High BUN 22 LAB L501.1100 0.70-1.30 mg/dL Normal CREAT,SERUM 0.72 Result Comment: The validity of the calculated GFR AND GFRAA in patients over 70 years has not been determined. Clinical correlation is essential. LAB L501.1110 >60 mL/min Normal EST GFR 117 Result Comment: Non- GFR Calc LAB L501.1115 >60 mL/min Normal EST GFR - AA 142 Result Comment: GFR Calc LAB L501.1255 ml/min Normal Estimated CRCL 83.64 LAB L501.1300 10-20 RATIO High BUN/CRE 30.4 LAB L501.2200 8.5-10 mg/dL Low .1 CA 7.6 LAB L501.5300 136-14 mmol/L Low 5 NA 130 LAB L501.5600 3.5-5. mmol/L Normal 1 K 4.3 LAB L501.5900 98-107 mmol/L Low CL 94 LAB L501.6100 21.0-3 mmol/L Normal 2.0 CO2 28.0 LAB L501.6200 5-15 Normal GAP 8 Performed By: #### L500.2500, L500.3400, L501.2450 #### [facility] [address] [place], [place], [address] LIVER PROFILE Collected: 10/15/2018 Status: F Source: [place] 5:15 PM [facility] TYPE CODE TESTS RESULT OUT OF RANGE REFERENCE UNITS LAB L501.1500 6.4-8.2 g/dL Low T PROT 4.7 LAB L501.1800 3.2-5.0 g/dL Low ALB 1.9 LAB L501.1950 2.2-4.2 g/dL Normal GLOB 2.8 LAB L501.4100 15-37 U/L Normal AST 15 LAB L501.4305 45-117 U/L Normal ALK P 85 LAB L501.4405 16-61 U/L Normal ALT 19 LAB L501.4600 0.20-1.00 mg/dL Normal T BILI 0.40 LAB L501.4700 0.00-0.30 mg/dL Normal D BILI 0.15 Performed By: #### L500.2500, L500.3400, L501.2450 #### [facility] [address], [place], [id number] LIPASE Collected: 10/15/2018 Status: F Source: [place] 5:15 PM [facility] TYPE CODE TESTS RESULT OUT OF RANGE REFERENCE UNITS LAB L501.2450 73-393 U/L Normal LIPASE 206 Performed By: #### L500.2500, L500.3400, L501.2450 #### [facility] [address], [place], [id number] CBC W/DIFF, AUTOMATED Collected: 10/15/2018 Status: C Source: [place] 5:15 PM [facility] TYPE CODE TESTS RESULT OUT OF RANGE REFERENCE UNITS LAB L100.1000 4.4-11.0 K/mm3 High WBC 19.2 LAB L100.1200 4.6-6.2 M/mm3 Normal RBC 4.61 LAB L100.1300 13.0-16.5 g/dl Normal HGB 14.3 LAB L100.1400 40-54 % Normal HCT 42.9 LAB L100.1500 80-94 fL Normal MCV 93.1 LAB L100.1600 27.0-32.0 pg Normal MCH 31.0 LAB L100.1700 32-36 g/gl Normal MCHC 33.3 LAB L100.1810 11.6-14.6 % Normal RDW CV 13.1 LAB L100.1820 35.1-43.9 fl High RDW SD 44.2 LAB L100.1900 150-450 K/mm3 Normal PLT 374 LAB L100.2000 6.2-12.0 fl Normal MPV 9.7 LAB L100.2100 47-70 % High NEUT% 85.7 LAB L100.2200 19-41 % Low LY% 4.4 LAB L100.2300 0-10 % Normal MONO% 7.5 LAB L100.2400 0-5 % Normal EO% 0.1 LAB L100.2500 0-1 % Normal BASO% 0.1 LAB L100.2550 0.0-0.9 % High IM GRAN % 2.200 Result Comment: IG% - Immature Granulocytes (promyelocytes, myelocytes and metamyelocytes) > 1% indicates that a LEFT SHIFT is Present. LAB L100.2620 2.0-7.7 X10 3/uL High Absolute Neut 16.4 LAB L100.2720 0.83-4.51 X10 3/ul Normal Absolute Lymph 0.84 LAB L100.5500 ADEQ Normal PLT EST ADEQUATE LAB L100.7000 NORM C AND C NORMAL Normal RED CELL MORPH N CHROM LAB L100.7300 Normal ANISO 1+ LAB L100.9900 Normal PATH REV Reviewed Result Comment: Neutrophilic leukocytosis. Clinical correlation suggested. Kevin Plaza D.O. 10/17/18 AMENDED REPORT 10/17/18 1415 PATH REV previously reported as: Teresita carbajal Performed By: #### L100.0100 #### [facility] [address] [place], [address] PROGRESS Observed: 10/12/2018 Status: COMPLETED Source: [place] 10:01 AM [facility] REPOSITORY HNO ID: [id number] Author: Conrado Myers Service: (none) Author Type: Physician Type: Progress Notes Filed: 10/12/2018 10:19 AM Note Text: OPERATIVE NOTATION FOR [facility] SURGICAL PROCEDURE. October 09, 2018 Nav Chavez 1955 [id number] male PROCEDURE: 90720 - push upper enteroscopy with biopsy SURGEON: Lucas Myers M.D. FACS LOOM CHANGEOVER OPERATOR: None DEPT: WQ PROVIDER: B17=JhuhjrwConrado Myers MD POS: [id number] DIAGNOSIS: (K52.9) Enteritis (primary encounter diagnosis) ASA CLASS: 2 - mild FINDINGS: Jejunal enteritis COMPLICATIONS: None PMHx - PAST MEDICAL HISTORY Diagnosis Date - Diabetes (HCC) COMORBIDITIES - None Post Op Occurrences - None Wound Classification - Clean Contaminated Operative note dictated in the [facility] dictation system. Conrado Myers MD DISCHARGE INSTRUCTION Observed: 10/10/2018 Status: F Source: [place] 11:01 AM [facility] Medical Records Department [address] [place] [address] Instructions for Home/Discharge Instructions 10/10/18 1051 MR#: [id number] Acct: [id number] Name: NAV CHAVEZ Rep #: [id number] : 1955 63 From: Per Madsen DO PCP: Shad FLORES,Dada Status: ADM IN You will use the following diet at home:: Other - low residue, no gastric stimulus, soft Your food should be the consistency of: Soft (bite-sized AND easy to chew/swallow) Your liquids should be the consistency of: Regular/Thin Discharge Activity: May not drive while taking narcotic pain medications. Return to work on:: 10/13/18 Call your doctor if you observe: Fever of 101 or Higher, Shortness of breath, Dizziness, Fainting spells, Uncontrolled pain, - - bloody diarrhea or black tarry stool Allergies/Adverse Reactions: Allergies No Known Allergies Allergy (Verified 10/07/18 19:20) Medications to take at Discharge Acarbose [Precose] 25 mg PO TID #90 tab 12/13/17 Albuterol IH (ProAir) [Proair Hfa] 2 puff INHALATION Q4H PRN PRN 12/13/17 Metformin HCl 500 mg PO BID #90 tab 12/13/17 Loratadine [Claritin] 10 mg PO DAILY #30 tablet 10/10/18 Prednisone 10 mg PO UD #30 tab 10/10/18 The following prescriptions were given: Loratadine [Claritin] 10 mg PO DAILY #30 tablet Prednisone 10 mg PO UD #30 tab Primary Care Physician: Dada Kulkarni MD [Primary Care Provider] - Please follow up with your Primary Care Physician in: 5-7 days Test Results: Test results from this visit will be discussed in further detail at your follow-up appointment, if applicable. biopsy reports for biopsies of the duodenum, jejunum, stomach, esophagus H pylori test Please Follow Up With: Conrado Myers MD When: 1 weeks 10/10/18 1101 <Electronically signed by Per Madsen DO> Date Per Madsen DO CC: Dada Kulkarni MD; Conrado Myers MD CBC W/DIFF, AUTOMATED Collected: 10/10/2018 Status: F Source: [place] 5:20 AM [facility] TYPE CODE TESTS RESULT OUT OF RANGE REFERENCE UNITS LAB L100.1000 4.4-11.0 K/mm3 Normal WBC 4.9 LAB L100.1200 4.6-6.2 M/mm3 Low RBC 4.27 LAB L100.1300 13.0-16.5 g/dl Normal HGB 13.4 LAB L100.1400 40-54 % Normal HCT 40.7 LAB L100.1500 80-94 fL High MCV 95.3 LAB L100.1600 27.0-32.0 pg Normal MCH 31.4 LAB L100.1700 32-36 g/gl Normal MCHC 32.9 LAB L100.1810 11.6-14.6 % Normal RDW CV 12.6 LAB L100.1820 35.1-43.9 fl Normal RDW SD 43.0 LAB L100.1900 150-450 K/mm3 Normal PLT 269 LAB L100.2000 6.2-12.0 fl Normal MPV 10.2 LAB L100.2100 47-70 % High NEUT% 84.9 LAB L100.2200 19-41 % Low LY% 9.4 LAB L100.2300 0-10 % Normal MONO% 4.9 LAB L100.2400 0-5 % Normal EO% 0.0 LAB L100.2500 0-1 % Normal BASO% 0.0 LAB L100.2550 0.0-0.9 % Normal IM GRAN % 0.800 Result Comment: IG% - Immature Granulocytes (promyelocytes, myelocytes and metamyelocytes) > 1% indicates that a LEFT SHIFT is Present. LAB L100.2620 2.0-7.7 X10 3/uL Normal Absolute Neut 4.1 LAB L100.2720 0.83-4.51 X10 3/ul Low Absolute Lymph 0.46 Performed By: #### L100.0100 #### [facility] [address] [place], [address] COMPREHENSIVE METABOLIC Collected: 10/10/2018 Status: F Source: [facility] 5:20 AM [facility] TYPE CODE TESTS RESULT OUT OF RANGE REFERENCE UNITS LAB L501.0100 74-106 mg/dL High GLU 200 Result Comment: Glucose result greater than or equal to 200 mg/dL suggests DIABETES MELLITUS per A.D.A. criteria. Please note revised GLUCOSE reference range effective 2017. LAB L501.1000 7-18 mg/dL Normal BUN 16 LAB L501.1100 0.70-1.30 mg/dL Low CREAT,SERUM 0.60 Result Comment: The validity of the calculated GFR AND GFRAA in patients over 70 years has not been determined. Clinical correlation is essential. LAB L501.1110 >60 mL/min Normal EST GFR 146 Result Comment: Non- GFR Calc LAB L501.1115 >60 mL/min Normal EST GFR - AA 177 Result Comment: GFR Calc LAB L501.1255 ml/min Normal Estimated CRCL 102.77 LAB L501.1300 10-20 RATIO High BUN/CRE 26.8 LAB L501.1500 6.4-8. g/dL Low 2 T PROT 4.3 LAB L501.1800 3.2-5. g/dL Low 0 ALB 1.4 LAB L501.1950 2.2-4. g/dL 2 GLOB Normal 2.9 LAB L501.2000 0.9-2. RATIO Low 4 A/G 0.5 LAB L501.2200 8.5-10 mg/dL Low .1 CA 7.4 LAB L501.4100 15-37 U/L Low AST 9 LAB L501.4305 45-117 U/L ALK P Normal 59 LAB L501.4405 16-61 U/L Low ALT 9 LAB L501.4600 0.20-1 mg/dL .00 T BILI Normal 0.30 LAB L501.5300 136-14 mmol/L 5 NA Normal 136 LAB L501.5600 3.5-5. mmol/L 1 K Normal 4.1 LAB L501.5900 98-107 mmol/L CL Normal 101 LAB L501.6100 21.0-3 mmol/L 2.0 CO2 Normal 25.0 LAB L501.6200 5-15 GAP Normal 10 Performed By: #### L500.4050, L501.2300, L501.5200 #### [facility] [address] [place], [address] PHOSPHORUS Collected: 10/10/2018 Status: F Source: [place] 5:20 AM [facility] TYPE CODE TESTS RESULT OUT OF RANGE REFERENCE UNITS LAB L501.2300 2.5-4.9 mg/dL Normal PHOS 3.2 Performed By: #### L500.4050, L501.2300, L501.5200 #### [facility] [address] [place], [address] MAGNESIUM Collected: 10/10/2018 Status: F Source: [place] 5:20 AM [facility] TYPE CODE TESTS RESULT OUT OF RANGE REFERENCE UNITS LAB L501.5200 1.6-2.6 mg/dL Normal MG 1.8 Performed By: #### L500.4050, L501.2300, L501.5200 #### [facility] [address] [place], [place], [address] C1 ESTERASE INHIBITOR, Collected: 10/09/2018 Status: F Source: [place] 3:16 PM [facility] TYPE CODE TESTS RESULT OUT OF RANGE REFERENCE UNITS LAB L3400.4300 21-39 mg/dL High C1 EST 41 INH 4648 Result Comment: Performed at: [address] [id number] Unemployment Inspector: Kalyan Wagner MD, Phone: [phone] Performed By: #### L3400.4300, L3400.4350 #### [facility] (refer to report for specific site) refer to report for address and phone number C1 EST INHIBITOR, Collected: 10/09/2018 Status: F Source: [facility] 3:16 PM [facility] TYPE CODE TESTS RESULT OUT OF RANGE REFERENCE UNITS LAB L3400.4350 . Normal C1 EST 432887 105 Result Comment: Result Units: %mean normal Abnormal <41 Equivocal 41 - 67 Normal >67 Performed By: #### L3400.4300, L3400.4350 #### [facility] (refer to report for specific site) refer to report for address and phone number ALLERGEN, FOOD PROFILE Collected: 10/09/2018 Status: F Source: [place] 3:16 PM [facility] TYPE CODE TESTS RESULT OUT OF RANGE REFERENCE UNITS LAB L5500.3002 Class 0 kU/L Normal MILK (COW) <0.10 LAB L5500.3004 Class 0 kU/L Normal WHEAT <0.10 LAB L5500.3008 Class 0 kU/L Normal CORN <0.10 LAB L5500.3013 Class 0 kU/L Normal PEANUT <0.10 LAB L5500.3014 Class 0 kU/L Normal SOYBEAN <0.10 LAB L5500.8100 . Normal RAST COMMENT Comment Result Comment: Levels of Specific IgE Class Description of Class ----- < 0.10 0 Negative 0.10 - 0.31 0/I Equivocal/Low 0.32 - 0.55 I Low 0.56 - 1.40 II Moderate 1.41 - 3.90 III High 3.91 - 19.00 IV Very High 19.01 - 100.00 V Very High >100.00 Very High LAB L5530.0430 Class 0 kU/L Normal CLAM <0.10 LAB L5530.0460 Class 0 kU/L Normal CODFISH <0.10 LAB L5530.0570 Class 0 kU/L Normal EGG,WHITE <0.10 LAB L5530.1430 Class 0 kU/L Normal Scallop <0.10 LAB L5530.1440 Class 0 kU/L Normal Sesame Seed <0.10 Result Comment: Performed at: - [facility] [id number] Unemployment Inspector: Kalyan Wagner MD, Phone: [phone] LAB L5530.1450 Class II kU/L High SHRIMP 0.63 LAB L5530.1650 Class 0 kU/L Normal WALNUT <0.10 Performed By: #### L5500.0410 #### [facility] (refer to report for specific site) refer to report for address and phone number OPERATIVE REPORT - Observed: 10/09/2018 Status: F Source: [place] [facility] 1:52 PM [facility] Medical Records Department [address] [place] [address] Operative Report - Endoscopy MR#: [id number] Acct: [id number] Name: NAV CHAVEZ Rep #: [id number] : 1955 63 From: Conrado Myers MD PCP: Dada Kulkarni MD Status: ADM ADIS Patient Name: Nav Chavez Procedure Date: 10/09/2018 1:19 PM Date of : 1955 Age: 63 Procedure: Upper GI endoscopy Indications: Generalized abdominal pain, Abnormal CT of the GI tract Providers: Conrado Myers MD Medicines: Monitored Anesthesia Care Patient Profile: This is a 63 year old male. Refer to note in patient chart for documentation of history and physical. Complications: No immediate complications. Procedure: Pre-Anesthesia Assessment: - Prior to the procedure, a History and Physical was performed, and patient medications and allergies were reviewed. The patient is competent. The risks and benefits of the procedure and the sedation options and risks were discussed with the patient. All questions were answered and informed consent was obtained. Patient identification and proposed procedure were verified by the physician, the nurse and the anesthesiologist in the procedure room. Mental Status Examination: alert and oriented. Airway Examination: normal oropharyngeal airway and neck mobility. Respiratory Examination: clear to auscultation. CV Examination: normal. Prophylactic Antibiotics: The patient does not require prophylactic antibiotics. Prior Anticoagulants: The patient has taken no previous anticoagulant or antiplatelet agents. ASA Grade Assessment: II - A patient with mild systemic disease. After reviewing the risks and benefits, the patient was deemed in satisfactory condition to undergo the procedure. The anesthesia plan was to use monitored anesthesia care (MAC). Immediately prior to administration of medications, the patient was re-assessed for adequacy to receive sedatives. The heart rate, respiratory rate, oxygen saturations, blood pressure, adequacy of pulmonary ventilation, and response to care were monitored throughout the procedure. The physical status of the patient was re-assessed after the procedure. After obtaining informed consent, the endoscope was passed under direct vision. Throughout the procedure, the patient's blood pressure, pulse, and oxygen saturations were monitored continuously. The Colonoscope was introduced through the mouth, and advanced to the mid-jejunum. The upper GI endoscopy was accomplished without difficulty. The patient tolerated the procedure well. Scope In: 1:34:16 PM Scope Out: 1:47:11 PM Total Procedure Duration Time 0 hours 12 minutes 55 seconds Findings: Diffuse moderate inflammation, characterized by congestion (edema), erythema and friability was found in the jejunum. Biopsies were taken with a cold forceps for histology. Verification of patient identification for the specimen was done. This was biopsied with a cold forceps for microbiology. Diffuse moderately erythematous mucosa without active bleeding and with no stigmata of bleeding was found in the entire duodenum. Biopsies were taken with a cold forceps for histology. Diffuse moderately congested mucosa was found in the entire examined stomach. Biopsies were taken with a cold forceps for Helicobacter pylori testing using PyloriTek test. Biopsies were taken with a cold forceps for histology. Diffuse moderately congested mucosa was found in the gastric fundus. Biopsies were taken with a cold forceps for histology. The lower third of the esophagus was normal. Biopsies were taken with a cold forceps for histology. The middle third of the esophagus was normal. Biopsies were taken with a cold forceps for histology. Impression: - Suspected jejunal inflammation characterized by congestion (edema), erythema and friability. Biopsied. - Erythematous duodenopathy. Biopsied. - Congestive gastropathy. Biopsied. - Congestive gastropathy. Biopsied. - Normal lower third of esophagus. Biopsied. - Normal middle third of esophagus. Biopsied. Recommendation: - Await pathology results. - Continue present medications. Procedure Code(s): --- Professional --- 48942, Esophagogastroduodenoscopy, flexible, transoral; with biopsy, single or multiple CPT copyright 2017 [employer]. All rights reserved. The codes documented in this report are preliminary and upon milk treater review may be revised to meet current compliance requirements. Conrado Myers MD 10/09/2018 1:52:27 PM This report has been signed electronically. Number of Addenda: 0 Note Initiated On: 10/09/2018 1:19 PM 10/09/18 1352 Date Conrado Myers MD Cosigner Signature: Date (if indicated) CC: Antoinette Madsen; Dada Kulkarni MD; Conrado Myers MD Date Dictated: 10/09/18 1319 Date Transcribed: Automobile Service Station Mechanic: NORMA Signed EGD (PICK SITE) Observed: 10/09/2018 Status: F Source: [place] 12:45 PM [facility] Patient: NAV CHAVEZ : 1955 (63/M) Acct Num: [id number] Phys: Antoinette Madsen Unit Num: [id number] Loc: MS2 [id number] Specimen: [id number] Received: 10/09/18 - 1404 Spec Type: EGD BIOPSY TISSUES 1 TISSUES: A. Jejunum, NOS B. Duodenum, NOS C. Gastric mucous membrane D. Stomach, NOS E. Esophageal mucous membrane F. Esophageal mucous membrane COMMENT A. Immunohistochemistry ([id number]) supports the above diagnosis. C AND D. The results of immunohistochemistry for Helicobacter pylori will be reported separately ([id number]). E. Alcian blue/PAS stain with matched control is used in the evaluation of the specimen. This case is sent to [facility] for expert opinion and reviewed by Dr. Cosby and above diagnosis is rendered. The complete report is viewable in patient's EMR. The results of jejunal biopsy are reported to Dr. Myers's office on 10/20/18. This case is discussed with Dr. Kulkarni on 10/20/18. Case has been reviewed in consultation with Dr. Plaza who concurs with the above diagnosis. IDC:AM GROSS DESCRIPTION A - Received in fixative is one container labeled with the patient's name and designated jejunum at 1.1 meter. The specimen consists of one irregular fragment of light mayorga soft tissue that measures 0.7 x 0.4 x 0.1 cm. The specimen is totally submitted in one cassette. B - Received in fixative is one container labeled with the patient's name and designated duodenal biopsy at 80 cm. The specimen consists of two irregular fragments of light mayorga soft tissue that in aggregate measure 0.4 x 0.3 x 0.1 cm. The specimen is totally submitted in one cassette. C - Received in fixative is one container labeled with the patient's name and designated antral biopsy. The specimen consists of two irregular fragments of light mayorga soft tissue that in aggregate measure 0.6 x 0.3 x 0.1 cm. The specimen is totally submitted in one cassette. D - Received in fixative is one container labeled with the patient's name and designated proximal stomach biopsy. The specimen consists of one irregular fragment of light mayorga soft tissue that measures 0.4 x 0.2 x 0.1 cm. The specimen is totally submitted in one cassette. E - Received in fixative is one container labeled with the patient's name and designated distal esophagus biopsy. The specimen consists of one irregular fragment of light mayorga soft tissue that measures 0.3 x 0.3 x 0.1 cm. The specimen is totally submitted in one cassette. F - Received in fixative is one container labeled with the patient's name and designated mid esophagus biopsy. The specimen consists of one irregular fragment of light mayorga soft tissue that measures 0.4 x 0.3 x 0.1 cm. The specimen is totally submitted in one cassette. / OLESYA:norma 10/09/18 TC:0 CPT: 68780 x6, 82824 HEADER OPERATION[place] [place] DIAGNOSIS: Small bowel inflammation TISSUE SUBMITTED: A - Jejunum 1.1 meter biopsy, B - Duodenal biopsy at 80 cm, C - Antral biopsy, D - Proximal stomach biopsy, E - Distal esophagus biopsy, F - Mid esophagus biopsy MICROSCOPIC DESCRIPTION Slides are reviewed. C AND D. The specimen shows fragments of gastric mucosa with chronic inflammatory cell infiltrates in the lamina propria consisting of lymphocytes and plasma cells, consistent with mild chronic gastritis. MICROSCOPIC DIAGNOSIS A. Jejunum at 1.1 meter, biopsy: Consistent with metastatic melanoma. See comment. B. Duodenum at 80 cm, biopsy: Fragments of duodenal mucosa with Alyssa gland hyperplasia. C. Antral biopsy: Mild gastritis. D. Proximal stomach, biopsy: Mild gastritis. E. Distal esophagus, biopsy: A fragment of gastroesophageal mucosa with chronic inflammation. Intestinal metaplasia (goblet cell metaplasia) is not identified. See comment. F. Mid esophagus, biopsy: A fragment of squamous mucosa with minimal chronic inflammation. SJ:norma 10/20/18 Signed Juan M Flores MD 10/20/18 <signature on file> Performed By: #### PEGD #### [facility] [address] [place], [address] CONSULTATION Observed: 10/09/2018 Status: F Source: [place] 9:42 AM [facility] Medical Records Department [address] [place] [address] Consultation 10/09/18 0935 MR#: [id number] Acct: [id number] Name: NAV CHAVEZ Rep #: [id number] : 1955 63 From: Conrado Myers MD PCP: Dada Kulkarni MD Status: ADM ADIS Y Location: [place] [address]-1 Reason for Consult Date of Consultation: 10/09/18 Reason for Consultation: abdominal pain-enteritis History of Present Illness: The patient is a 63 year old M who presents with a complaint of abdominal pain for the last few days. the patient presented to [facility] emergency department on October 07 with a complaint of one-day history of abdominal pain. The patient relatively unremarkable laboratory studies. He was admitted to the medicine service. CT scan of the abdomen and pelvis demonstrated was felt to be significant small bowel enteritis-rather prominent thickening and edema of the small bowel possibly also including thickening of the stomach. The colon demonstrated stool but did not have it was felt to be la colitis. the patient was started on Cipro and Flagyl orally. There is more for stool studies but the patient has not had bowel movements since admission to the hospital. The patient denies travel outside of the country. He denies eating unusual around foods. He denies anybody else having similar symptoms as at home. Patient was seen in our office in December of this year with a complaint of epigastric pain for approximately one month duration. The patient does smoke. He was seen by my physician's audiology assistant Barb Reed who noted: The patient is a 62 year old male referred for evaluation. Nav notes a 1-month history of worsening epigastric pain, as well as bloating and intermittent lower abdominal discomfort. Patient notes pain seems less severe in the morning, then worsens after drinking his morning coffee. Associated symptoms include nausea, decreased appetite, and few episodes of emesis. Patient denies hematemesis or coffee-ground emesis. He has noted some constipation. Denies blood in stools or black tarry stools. He notes a significant weight loss of 150 to 116 lbs over the last few months. He is a tobacco user, smokes 1/2 pack of cigarettes daily, has COPD. Patient reports he had been in good overall health until the last couple of months. He was sent to the emergency department at [facility] on 12/13/17 after being seen at Urgent Care for upper respiratory complaints and nausea and was found to have a glucose level of 405. He was started on metformin and precose but states he has not been back to his PCP, Dr. Dada Kulkarni, to follow up on his newly diagnosed diabetes. The patient also had a chest CT at that ED visit which showed no acute disease. More recently on 12/30/17 patient presented to the emergency department for his abdominal complaints and nausea. He had an abdominal CT scan which showed gallbladder wall thickening and common bile duct 9.3mm. Ultrasound of the right upper quadrant showed small amount of sludge without wall thickening or pericholecystic fluid. Dr. Myers was contacted and reviewed the imaging, did not feel this was convincing for triue cholecystitis and recommended outpatient follow-up. Labs reviewed in [facility] also showed recent CEA of 5.6. Patient has never had a screening colonoscopy. he underwent upper and lower endoscopy on January 28, 2018 which demonstrated gastritis, duodenitis and 2 polyps found in the transverse colon and rectosigmoid area. Pathology returned as: MICROSCOPIC DIAGNOSIS A. Duodenal biopsy: Fragment of duodenal mucosa with Alyssa gland hyperplasia. B. Antral biopsy: Mild gastritis. See microscopic description and comment. - H. pylori negative C. Transverse colon polyp, biopsy: Tubular adenoma. D. Rectosigmoid polyp at 20 cm, biopsy: Tubular adenoma. Past Medical History Allergies No Known Allergies Allergy (Verified 10/07/18 19:20) Home Medications: Ambulatory Orders Medication Instructions Recorded Surgical History: no surgical history Lives: Spouse/ Significant Other Smoking Status: Current every day smoker Tobacco Use: Cigarettes Alcohol: Occasional Drugs: None - *Family History Maternal History Items: Diabetes Sibling History Items: Diabetes Review of Systems Constitutional: Denies: Chills, Fever, Weight Change HEENT: Denies: Head Aches, Sinus Congestion, Sinus Drainage Cardiovascular: Denies: Chest Pain, Palpitations Respiratory: Denies: Cough, Shortness of breath at rest, Sputum production Gastrointestinal: Reports: Abdominal Pain. Denies: Nausea, Vomiting Genitourinary: Denies: Dysuria Musculoskeletal: Denies: Joint Pain, Joint Tenderness Skin: Denies: Rash, Wounds Neurological: Denies: Numbness, Tingling, Focal weakness Psychiatric: Denies: Anxiety, Depression, Homicidal Ideations, Suicidal Ideations Hematologic/ Lymphatic: Denies: Easy Bruising, Easy Bleeding - Physical Exam General: Alert, Oriented x3, Cooperative HEENT: Atraumatic, PERRLA, EOMI, Normocephalic Neck: Supple, No JVD, Negative Carotid Bruits Lungs: Clear to auscultation, Normal air movement Cardiovascular: Regular rate, No murmurs Abdomen: Bowel Sounds Present, Soft, Tender - mild tenderness in the epigastrium and left sided area without peritoneal signs. Normoactive bowel sounds. Extremities: No edema, Capillary Refill Less than 3 Seconds Skin: No rashes, No breakdown Musculoskeletal: No Tenderness to Palpation of Joints or Extremities Neurological: Cranial nerves II-XII grossly intact Psych/Mental Status: Normal Affect, Appropriate Vital Signs Temp Pulse Resp BP Pulse Ox 98.2 F 84 18 107/53 L 95 10/09/18 08:07 10/09/18 08:07 10/09/18 08:07 10/09/18 08:07 10/09/18 08:07 Oxygen Delivery Method Room Air Weight: 56.2 kg Body Mass Index (BMI) 17.2 Intake and Output for Last 24 Hours Intake Total 3272 / 3272 1155 / 1155 Balance 3272 / 3272 1155 / 1155 Laboratory Tests Past 24 Hrs APTT 43.4 H Sodium Potassium Chloride Carbon Dioxide Anion Gap BUN Creatinine Assessment/Plan abdominal pain, CT scan demonstrating small bowel enteritis with significant edema. I ordered ova and parasites and in fecal leukocytes in addition to enteric pathogens. I will plan to perform upper endoscopy, likely with the pediatric colonoscope and attempt to get further into the small bowel to hopefully make it to the area of significant edema on CT scan and planned for biopsy performed at that location. The patient understands the risks, benefits, complications and possible alternatives to treatment via endoscopy and consents to the planned surgical procedure. 10/09/18 0942 <Electronically signed by Conrado Myers MD> Date Conrado Myers MD Cosigner Signature (if applicable): Date CC: Dada Kulkarni MD; Conrado Myers MD Signed PARTIAL THROMBOPLAST Collected: 10/09/2018 Status: F Source: [place] TIME 5:15 AM [facility] TYPE CODE TESTS RESULT OUT OF REFERENCE UNITS RANGE LAB L300.4310 24.1-36.2 Seconds High PTT 43.4 Performed By: #### L300.4310 #### [facility] [address] [place], [place], [address] CNOP Observed: 10/09/2018 Status: COMPLETED Source: [place] 12:00 AM [facility] REPOSITORY Operative Note (Enc) (GENSWS) Progress Notes: Conrado Myers MD 10/12/2018 10:19 AM Signed OPERATIVE NOTATION FOR [facility] SURGICAL PROCEDURE. October 09, 2018 Nav Chavez 1955 [id number] male PROCEDURE: 30408 - push upper enteroscopy with biopsy SURGEON: Lucas Myers M.D. FACS [employer]OVER OPERATOR: None DEPT: WQ PROVIDER: [id number]=AypwzzrConrado Myers MD POS: 2T0=YNSAVINNO DIAGNOSIS: (K52.9) Enteritis (primary encounter diagnosis) ASA CLASS: 2 - mild FINDINGS: Jejunal enteritis COMPLICATIONS: None PMHx - PAST MEDICAL HISTORY Diagnosis Date - Diabetes (HCC) COMORBIDITIES - None Post Op Occurrences - None Wound Classification - Clean Contaminated Operative note dictated in the [facility] dictation system. Conrado Myers MD Encounter Status:Closed by CONRADO MYERS MD on 10/12/18 IMMUNOHISTOCHEMISTRY Observed: 10/09/2018 Status: F Source: [place] 12:00 AM [facility] Patient: NAV CHAVEZ : 1955 (63/M) Acct Num: [id number] Phys: Antoinette Madsen Unit Num: [id number] Loc: MS2 [id number] Specimen: [id number] Received: 10/10/18 - 1421 Spec Type: IMMUNO TISSUES 1 TISSUES: A. Jejunum, NOS C. Stomach, NOS D. Stomach, NOS SPECIMEN INFORMATION: Tissue Source: A - Jejunum at 1.1 meter biopsy, C - Antral biopsy, D - Proximal stomach biopsy Clinical Info: Small bowel inflammation Specimen Number: [id number] A, C AND D CPT code: 14308 x3, 40915 x15 METHODOLOGY: Deparaffinized sections of prefer/formalin-fixed tissue or PAP/DQ stained slides are incubated with monoclonal/polyclonal antibodies/oligonucleotide probes. Localization is made via biotin free immunoperoxidase method. Appropriate controls are performed and reacted as expected. Results on target cell population are indicated in the following table: RESULTS: ANTIBODY / CLONE RESULT Block A CK8 (86cvhmV01) negative CD56 (123C3.D5) negative CD45 (RP2/18) negative Chromo (LK2H10) negative Synapto (polyclonal) negative Ki-67 (30-9) positive, low CD138 (B-A38) negative Gaastra (polyclonal) negative Lambda (polyclonal) negative Vimentin (V9) positive Actin (1A4) negative MART-1 (A-103) positive Desmin (CE-R-11) negative AE1-3 (AE1/AE3/PCK26) negative CK7 (OV-TL12/30) negative S-100 (4C4.9) positive Block C H Pylori (polyclonal) negative Block D H Pylori (polyclonal) negative These tests were developed and their performance characteristics determined by [facility]. They may not have been cleared or approved by the U.S. Food and Drug Administration. The FDA has determined that such clearance or approval is not necessary. INTERPRETATION: A. Jejunum at 1.1 meter, biopsy: Consistent with metastatic melanoma. See comment. C. Antral biopsy: Negative for Helicobacter pylori organisms. D. Proximal stomach biopsy: Negative for Helicobacter pylori organisms. SJ:norma 10/20/18 The specimen is sent to [facility] for expert opinion and reviewed by Dr. Cosby and above diagnosis is rendered. The complete report is viewable in patient's EMR. Case has been reviewed in consultation with Dr. Plaza who concurs with the above diagnosis. IDC:[facility] [place] [id number] Signed Juan M Flores MD 10/20/18 <signature on file> Performed By: #### PIMM #### [facility] [address] [place] [address]. [place], [address] CHEST PA AND LATERAL Observed: 10/08/2018 Status: F Source: [place] 5:56 PM [facility] Imaging Services [address] [place] [address] Chest PA and Lateral MR#: [id number] Acct: [id number] Name: CHAVEZNAV Rebecca Rep #: [id number] : 1955 M 63 From: Haseeb Church DO PCP: Dada Kulkarni MD Status: ADM ADIS Study: Chest PA and Lateral Date of Exam: 10/08/18 Exam# [id number] Ordering Dr: Per Madsen DO STUDY: X-RAY CHEST REASON FOR EXAM: Male, 63 years old. Cough TECHNIQUE: Frontal and lateral views COMPARISON: None. FINDINGS: The lungs are hyperaerated. There is basilar atelectasis. Normal size heart. Normal mediastinum and dennis. Normal visualized pulmonary arteries. Normal visualized aortic arch and descending thoracic aorta. Normal visualized thoracic spine. Old left rib fractures. There is no demonstrated abnormality of the visualized soft tissue structures of the upper abdomen. RAD/Chest PA and Lateral IMPRESSION: Mild hyperaeration. Electronically Signed: Haseeb Church DO at 23:33 EST Tel [phone], Service support , CC: Antoinette Madsen; Dada Kulkarni MD [employer] Mechanic: Signed CBC W/DIFF, AUTOMATED Collected: 10/08/2018 Status: F Source: [place] 7:48 AM [facility] TYPE CODE TESTS RESULT OUT OF RANGE REFERENCE UNITS LAB L100.1000 4.4-11.0 K/mm3 Normal WBC 6.3 LAB L100.1200 4.6-6.2 M/mm3 Low RBC 4.35 LAB L100.1300 13.0-16.5 g/dl Normal HGB 13.7 LAB L100.1400 40-54 % Normal HCT 41.2 LAB L100.1500 80-94 fL High MCV 94.7 LAB L100.1600 27.0-32.0 pg Normal MCH 31.5 LAB L100.1700 32-36 g/gl Normal MCHC 33.3 LAB L100.1810 11.6-14.6 % Normal RDW CV 12.9 LAB L100.1820 35.1-43.9 fl Normal RDW SD 43.4 LAB L100.1900 150-450 K/mm3 Normal PLT 240 LAB L100.2000 6.2-12.0 fl Normal MPV 10.3 LAB L100.2100 47-70 % High NEUT% 74.9 LAB L100.2200 19-41 % Low LY% 8.5 LAB L100.2300 0-10 % High MONO% 15.6 LAB L100.2400 0-5 % Normal EO% 0.3 LAB L100.2500 0-1 % Normal BASO% 0.2 LAB L100.2550 0.0-0.9 % Normal IM GRAN % 0.500 Result Comment: IG% - Immature Granulocytes (promyelocytes, myelocytes and metamyelocytes) > 1% indicates that a LEFT SHIFT is Present. LAB L100.2620 2.0-7.7 X10 3/uL Normal Absolute Neut 4.7 LAB L100.2720 0.83-4.51 X10 3/ul Low Absolute Lymph 0.53 LAB L100.4500 Normal SMEAR COMMENT COMMENT Result Comment: SLIDE SCANNED - LYMPHOPENIA NOTED. Performed By: #### L100.0100 #### [facility] [address] [place], [address] BASIC METABOLIC Collected: 10/08/2018 Status: F Source: [place] PROFILE ([facility]) 7:48 AM [facility] TYPE CODE TESTS RESULT OUT OF RANGE REFERENCE UNITS LAB L501.0100 74-106 mg/dL High GLU 112 Result Comment: Fasting Glucose result from 100 to 125 mg/dL suggests IMPAIRED HOMEOSTASIS per A.D.A. criteria. Please note revised GLUCOSE reference range effective 2017. LAB L501.1000 7-18 mg/dL Normal BUN 17 LAB L501.1100 0.70-1.30 mg/dL Normal CREAT,SERUM 0.71 Result Comment: The validity of the calculated GFR AND GFRAA in patients over 70 years has not been determined. Clinical correlation is essential. LAB L501.1110 >60 mL/min Normal EST GFR 120 Result Comment: Non- GFR Calc LAB L501.1115 >60 mL/min Normal EST GFR - AA 145 Result Comment: GFR Calc LAB L501.1255 ml/min Normal Estimated CRCL 86.85 LAB L501.1300 10-20 RATIO High BUN/CRE 24.0 LAB L501.2200 8.5-10 mg/dL Low .1 CA 7.2 LAB L501.5300 136-14 mmol/L Normal 5 NA 136 LAB L501.5600 3.5-5. mmol/L Normal 1 K 4.2 LAB L501.5900 98-107 mmol/L Normal CL 103 LAB L501.6100 21.0-3 mmol/L Normal 2.0 CO2 26.0 LAB L501.6200 5-15 Normal GAP 7 Performed By: #### L500.2500 #### [facility] [address] [place], [address] PHOSPHORUS Collected: 10/08/2018 Status: F Source: [place] 7:48 AM [facility] TYPE CODE TESTS RESULT OUT OF RANGE REFERENCE UNITS LAB L501.2300 2.5-4.9 mg/dL Normal PHOS 2.7 Performed By: #### L501.2300 #### [facility] [address] [place], [address] MAGNESIUM Collected: 10/08/2018 Status: F Source: [place] 7:48 AM [facility] TYPE CODE TESTS RESULT OUT OF RANGE REFERENCE UNITS LAB L501.5200 1.6-2.6 mg/dL Low MG 1.5 Performed By: #### L501.5200, L501.9520 #### [facility] [address] [place], [address] THYROID STIM HORMONE Collected: 10/08/2018 Status: F Source: [place] (TSH) 7:48 AM [facility] TYPE CODE TESTS RESULT OUT OF RANGE REFERENCE UNITS LAB L501.9520 0.358-3.74 uIU/mL Normal TSH 1.99 Performed By: #### L501.5200, L501.9520 #### [facility] [address] [place], [address] HEMOGLOBIN A1C Collected: 10/08/2018 Status: F Source: [place] 7:48 AM [facility] TYPE CODE TESTS RESULT OUT OF RANGE REFERENCE UNITS LAB L501.9985 4.2-6.3 % High HGB A1C 8.5 Performed By: #### L501.9985 #### [facility] [address] [place], [address] HISTORY AND PHYSICAL Observed: 10/08/2018 Status: F Source: [place] EXAM 6:39 AM [facility] Medical Records Department [address] [place] [address] History and Physical 10/07/188 MR#: [id number] Acct: [id number] Name: NAV CHAVEZ Rep #: [id number] : 1955 63 From: Kim Ray MD PCP: Dada Kulkarni MD Status: ADM ADIS Y Location: [place] [address] History of Present Illness Date of Admission: 10/07/18 Chief Complaint: abdominal pain The patient is a 63 year old M with a PMH of diabetes mellitus. Admitted to the ED on 10/07/2018 with complaint of abdominal pain of one days duration. Pain started yesterday when he was at work and he says started around 4 PM. Was sharp and cramping and episodic. There were no aggravating or relieving factors. He denied any diarrhea or vomiting or any fever or chills. He is never had such abdominal pain before. Pain was not improving and so he decided coming to the ED. Vitals were unremarkable in the ED and chemistry showed sodium of 133 and creatinine of 0.67. CBC was unremarkable. Abdominal CT showed extremely market small bowel wall thickening which was much is 1.7 cm thick consistent with extreme enteritis. Large bolus of normal caliber with market fecal retention. No gross diverticulitis seen in the appendix is not definitely seen. Also showed distended gallbladder and distended, bile duct and proximal pancreatic duct with diffuse atrophy of the pancreas. Is been admitted to be managed for severe enteritis. He was given IV ciprofloxacin and Flagyl in the ED. [] Past Medical History Allergies No Known Allergies Allergy (Verified 10/07/18 19:20) Home Medications: Ambulatory Orders Medication Instructions Recorded Acarbose [Precose] 25 mg PO TID #90 tab 12/13/17 Albuterol IH (ProAir) [Proair Hfa 2 puff INHALATION Q4H PRN PRN 12/13/17 (SP)Vent Pts] Lives: Spouse/ Significant Other Smoking Status: Current every day smoker Tobacco Use: Cigarettes Alcohol: Occasional Drugs: None - *Family History Maternal History Items: Diabetes Sibling History Items: Diabetes Review of Systems Constitutional: Denies: Chills, Fever, Malaise, Weakness, Weight Change Eyes: Denies: Blurred vision HEENT: Denies: Head Aches, Sinus Congestion, Sinus Drainage Cardiovascular: Denies: Chest Pain, Palpitations Respiratory: Denies: Cough, Shortness of Breath, Shortness of breath at rest, Sputum production Gastrointestinal: Reports: Abdominal Pain. Denies: Constipation, Diarrhea, Dyspepsia, Hematemesis, Hematochezia, Nausea, Melena, Vomiting Genitourinary: Denies: Dysuria Musculoskeletal: Denies: Joint Pain, Joint Tenderness Skin: Denies: Rash, Wounds Neurological: Denies: Numbness, Tingling, Focal weakness Psychiatric: Denies: Anxiety, Depression, Homicidal Ideations, Suicidal Ideations Hematologic/ Lymphatic: Denies: Easy Bruising, Easy Bleeding VTE Information - Inpt Only VTE Present on Admission: No VTE Pharm Prophylaxis ordered?: Yes - Physical Exam General: Alert, Oriented x3, Cooperative, No apparent distress HEENT: Atraumatic, PERRLA, EOMI, Normocephalic Oral: Dry Mucosa Neck: Supple, No JVD, Negative Carotid Bruits Lungs: Clear to auscultation, Normal air movement Cardiovascular: Regular rate, Regular Rhythm, Normal S1, Normal S2, No murmurs Abdomen: Bowel Sounds Present, Soft, - - mild generalised tenderness, with no guarding or rebound tenderness Extremities: No clubbing, No cyanosis, No edema, Capillary Refill Less than 3 Seconds Skin: No rashes, - - nodular 5 x5cm lesion on right lateral forearm, nontender. Also has painless nodules over back and neck. Musculoskeletal: No Tenderness to Palpation of Joints or Extremities Lymphatic: No Cervical, Supraclavicular, or Inguinal Adenopathy Neurological: Cranial nerves II-XII grossly intact, Neuro grossly intact, Motor Exam 5/5 strength throughout Psych/Mental Status: Normal Affect, Appropriate, Alert and oriented to time, place, person, mood and affect Vital Signs Temp Pulse Resp BP Pulse Ox 96.9 F L 102 H 16 130/82 H 95 10/07/18 19:18 10/07/18 20:37 10/07/18 20:37 10/07/18 20:37 10/07/18 20:37 Oxygen Delivery Method Room Air Weight: 120 lb 9.486 oz Body Mass Index (BMI) 16.8 Laboratory Tests Past 24 Hrs Diagnostic Data Abdomen/Pelvis CT 10/07/18 20:23 IMPRESSION: Evaluation of the GI tract is limited by absence of oral contrast, but there is definitely extreme thickening of small bowel wall consistent with a severe enteritis. Marked fecal retention. Distended gallbladder, dilated common bile duct and pancreatic duct. Correlate with liver function tests. Electronically Signed: Dustin Rahman MD at 21:53 EST , Service support , Assessment/Plan 63 y/o male presenting with a one day history of severe abdominal pain 1. Small bowel enteritis of unknown etiology * abdominal pain was cramping, sharp, with no aggravating or relieving factors * CT abdomen showed extremely marked small bowel wall thickening, consistent with extreme enteritis, and marked fecal retention; large bowel of normal caliber * CT also showed distended gallbladeer and common bile dicut and proximal pancreatic duct, as well as diffuse pancreatic atrophy. These are chronic findings * denies any diarrhea or vomiting * admit to Med surg * keep NPO for bowel rest * give IV ciprofloxacin and IV flagyl * hydrate with IVF NS 2. Diabetes mellitus: hold metfromin and acarbose. ISS. Accuchecks q6 3. Nodular skin lesion ?malignancy * says he has had this nodular skin lesion on the right upper forearm for the past 4 months, and it has gradually enlarged * also has painless subcentimeter nodules over his back and neck * will need skin biopsy for definite diagnosis; consider consulting general surgery in the morning for skin biopsy * DVT prophylaxis: heparin GI prophylaxis: PPI Code Visit OBSV E AND M: 26230 Initial observation care L3 10/08/18 0639 <Electronically signed by Kim Ray MD> Date Kim Ray MD Cosigner Signature: Date (if applicable) CC: Dada Kulkarni MD; Kim Ray MD Signed BEDSIDE GLUCOSE Collected: 10/08/2018 Status: F Source: [place] 6:33 AM [facility] TYPE CODE TESTS RESULT OUT OF REFERENCE UNITS RANGE LAB L501.080 70-110 mg/dL High BEDSIDE GLU 175 Result Comment: MANAGEMENT OF PATIENT CARE PER NURSING PROTOCOL Performed By: #### L501.080 #### [facility] Point of Care [address] [place] [address] EMERGENCY DEPARTMENT Observed: 10/07/2018 Status: F Source: [place] SUMMARY 10:39 PM [facility] Medical Records Department [address] [place] [address] Emergency Department Summary 10/07/18 2231 MR#: [id number] Acct: [id number] Name: NAV CHAVEZ Rep #: [id number] : 1955 63 From: Alvaro Bradley MD PCP: Dada Kulkarni MD Status: REG ER - ER Visit Summary Date of Service: 10/07/18 Chief Complaint: Abdominal pain History of Present Illness: The patient is a 63 M presents to the emergency department with abdominal pain. The patient states his symptoms began over the past 24 hours. He describes a sharp stabbing pain in his left upper quadrant into his left lower quadrant. He states his never had pain like this before. His only past medical history is of diabetes non-insulin dependent. He has had prior hiatal hernia repair by Dr. Nunez. He denies any fevers or chills. He denies any weight loss. The patient states he has had a skin rash for the past 3 months. He does have a large lesion on his right upper arm. He has not had diarrhea. He denies any recent antibiotic use. Is not had a recent colonoscopy. He has not found anything that improved his pain. Physical Examination: Vital signs reviewed General: Well-nourished, well-developed Head: Normocephalic, atraumatic Eyes: Pupils equal and reactive, extraocular muscles intact Neck, supple, no lymphadenopathy Heart: Regular rate and rhythm Respiratory: No distress, clear bilaterally Abdomen: Soft, tender in the left lower quadrant without rebound or guarding r, nondistended, no peritoneal signs Back: Nontender Extremities: Nontender, no edema, no cords Skin: Normal color, abnormal skin lesion on the right upper arm with irregular margins Neuro: Alert and oriented, no focal or lateralizing deficits Test Results: [] Emergency Department Course and Treatment: The patient presents with abdominal pain. He has had no other infectious symptoms. IV was established. He was given fluids and analgesics with marked improvement of his pain. Screening labs are unremarkable. His urine does show some ketones but I do this feeling likely because he is mildly dry. Patient underwent CT of his abdomen and pelvis. This does show multiple irregularities within his small bowel and distention. There is no obstruction. There is no perforation. The patient was started on broad-spectrum antibiotics. I do have some suspicion that this may be malignancy given his symptoms and skin lesions, but at this time the patient will be admitted for pain control, hydration, and reevaluation. He is comfortable with this plan of care. Treatment Plan: [] Disposition: Admission Impression: 1. Enteritis This note was generated with [employer] dictation software. It may contain incorrect words, spelling, and punctuation that were not noted in review of the chart prior to signing ED Disposition - Plan for ED Patient: Chief Complaint: Abd Pain Referrals: Dada Kulkarni MD [Primary Care Provider] - What to do if you have Problems For any increased pain, shortness of breath, bleeding, nausea or vomiting, chest pain, or any unexpected problems, contact your Primary Care Provider. Call [facility] ([phone]) or report to the closest Emergency Room. Call 911 if necessary. 10/07/18 6472 <Electronically signed by Alvaro Bradley MD> Date Alvaro Bradley MD Cosigner Signature (If Indicated): Date CC: Dada Kulkarni MD URINALYSIS, COMPLETE Collected: 10/07/2018 Status: F Source: [place] 9:44 PM [facility] Order Comment: Order Date: 10/07/18 How was Urine Obtained? CLEAN CATCH TYPE CODE TESTS RESULT OUT OF RANGE REFERENCE UNITS LAB L400.3000 Yellow COLOR Normal Yellow LAB L400.3050 Clear Normal CLARITY Clear LAB L400.3200 Normal mg/dl Normal GLUCOSE, UR Normal LAB L400.3300 Negative mg/dL Normal BILIRUBIN URINE Negative LAB L400.3400 Negative mg/dl High KETONE UR 150 Result Comment: CRITICAL VALUE VERIFIED. CALLED TO MIKE IN ED 10/07/182154 Joelle Gilman. RESULTS READ BACK BY SAME . CRITICAL VALUE *H LAB L400.3465 1.002-1.030 Normal SP.GR. DIPSTX 1.020 LAB L400.3550 5.0 - 8.0 pH Normal UR 5.0 LAB L400.3600 Negative mg/dl High 30 PROT DIPSTX LAB L400.3700 Normal mg/dl Normal UROBILI Normal LAB L400.3750 Negative Normal NITRITE UR Negative LAB L400.3780 Negative /ul Normal OCCULT Negative BLOOD-UR LAB L400.3800 Negative /ul Normal LEUK ESTERASE Negative LAB L400.4050 0-5 /hpf 0 Normal WBC SEEN LAB L400.4100 0-5 /hpf 0 Normal RBC-UA SEEN LAB L400.4150 0-5 /hpf 0 Normal SQUAM EPI SEEN LAB L400.4300 None Seen /hpf 0 Normal BACTERIA SEEN LAB L400.4350 <or=2+ /hpf 0 Normal MUCUS, URINE SEEN Performed By: #### L400.0001 #### [facility] [address] [place], [place], [id number] CBC W/DIFF, AUTOMATED Collected: 10/07/2018 Status: F Source: [place] 8:32 PM [facility] TYPE CODE TESTS RESULT OUT OF RANGE REFERENCE UNITS LAB L100.1000 4.4-11.0 K/mm3 Normal WBC 9.8 LAB L100.1200 4.6-6.2 M/mm3 Normal RBC 4.96 LAB L100.1300 13.0-16.5 g/dl Normal HGB 15.6 LAB L100.1400 40-54 % Normal HCT 46.3 LAB L100.1500 80-94 fL Normal MCV 93.3 LAB L100.1600 27.0-32.0 pg Normal MCH 31.5 LAB L100.1700 32-36 g/gl Normal MCHC 33.7 LAB L100.1810 11.6-14.6 % Normal RDW CV 13.0 LAB L100.1820 35.1-43.9 fl High RDW SD 44.3 LAB L100.1900 150-450 K/mm3 Normal PLT 283 LAB L100.2000 6.2-12.0 fl Normal MPV 10.5 LAB L100.2100 47-70 % High NEUT% 79.2 LAB L100.2200 19-41 % Low LY% 7.9 LAB L100.2300 0-10 % High MONO% 12.7 LAB L100.2400 0-5 % Normal EO% 0.0 LAB L100.2500 0-1 % Normal BASO% 0.1 LAB L100.2550 0.0-0.9 % Normal IM GRAN % 0.100 Result Comment: IG% - Immature Granulocytes (promyelocytes, myelocytes and metamyelocytes) > 1% indicates that a LEFT SHIFT is Present. LAB L100.2620 2.0-7.7 X10 3/uL High Absolute Neut 7.8 LAB L100.2720 0.83-4.51 X10 3/ul Low Absolute Lymph 0.77 Performed By: #### L100.0100 #### [facility] [address] [place], [address] COMPREHENSIVE METABOLIC Collected: 10/07/2018 Status: F Source: [facility] 8:32 PM [facility] TYPE CODE TESTS RESULT OUT OF RANGE REFERENCE UNITS LAB L501.0100 74-106 mg/dL High GLU 175 Result Comment: Fasting Glucose result greater than or equal to 126 mg/dL suggests DIABETES MELLITUS per A.D.A. criteria. Please note revised GLUCOSE reference range effective 2017. LAB L501.1000 7-18 mg/dL High BUN 20 LAB L501.1100 0.70-1.30 mg/dL Low CREAT,SERUM 0.67 Result Comment: The validity of the calculated GFR AND GFRAA in patients over 70 years has not been determined. Clinical correlation is essential. LAB L501.1110 >60 mL/min Normal EST GFR 128 Result Comment: Non- GFR Calc LAB L501.1115 >60 mL/min Normal EST GFR - AA 155 Result Comment: GFR Calc LAB L501.1255 ml/min Normal Estimated CRCL 89.58 LAB L501.1300 10-20 RATIO High BUN/CRE 29.9 LAB L501.1500 6.4-8. g/dL Low 2 T PROT 5.6 LAB L501.1800 3.2-5. g/dL Low 0 ALB 2.2 LAB L501.1950 2.2-4. g/dL Normal 2 GLOB 3.4 LAB L501.2000 0.9-2. RATIO Low 4 A/G 0.6 LAB L501.2200 8.5-10 mg/dL Low .1 CA 8.2 LAB L501.4100 15-37 U/L Low AST 12 LAB L501.4305 45-117 U/L Normal ALK P 93 LAB L501.4405 16-61 U/L Low ALT 13 LAB L501.4600 0.20-1 mg/dL Normal .00 T BILI 0.50 LAB L501.5300 136-14 mmol/L Low 5 NA 133 LAB L501.5600 3.5-5. mmol/L Normal 1 K 4.1 LAB L501.5900 98-107 mmol/L Low CL 97 LAB L501.6100 21.0-3 mmol/L Normal 2.0 CO2 25.0 LAB L501.6200 5-15 Normal GAP 11 Performed By: #### L500.4050 #### [facility] [address] [place], [address] ABDOMEN/PELVIS W IV CONT Observed: 10/07/2018 Status: F Source: [place] ONLY 8:23 PM [facility] Imaging Services [address] [place] [address] Abdomen/Pelvis W IV Cont ONLY MR#: [id number] Acct: [id number] Name: NAV CHAVEZ Rep #: [id number] : 1955 M 63 From: Dustin Rahman MD PCP: Shad FLORES,Dada Status: REG ER Study: Abdomen/Pelvis W IV Cont ONLY Date of Exam: 10/07/18 Exam# [id number] Ordering Dr: Alvaro Bradley MD STUDY: CT ABDOMEN AND PELVIS WITH CONTRAST REASON FOR EXAM: Male, 63 years old. Left lower quadrant pain. RADIATION DOSAGE (If Supplied By Facility): CTDIvol = ( 12.29 ) mGy, DLP = ( 413.14 ) mGycm TECHNIQUE: Transaxial images were obtained from the dome of the diaphragm to the symphysis pubis without oral contrast. 100ML ml of Isovue 300 contrast was administered. Sagittal and coronal images were reconstructed. Individualized dose optimization techniques were used for this CT. COMPARISON: 01/06/2018. FINDINGS: Limited views through the lower chest show findings consistent with chronic pulmonary disease. Normal liver. Distended gallbladder, and distended common bile duct and proximal pancreatic duct. Common bile duct measures as much as 1 cm. Recommend correlation with liver function tests and consider ERCP. Numerous splenic cysts are again noted, stable. There is diffuse atrophy of the pancreas. Normal bilateral adrenal glands. Normal right kidney. Normal left kidney. Evaluation of the GI tract is limited by the absence of oral contrast. Cannot exclude stomach wall thickening. Although it is difficult to evaluate bowel wall without oral contrast, there is clearly extremely marked small bowel wall thickening, reaching as much as 1.7 cm thick. As example, see axial images 30-87. Findings are consistent with an extreme enteritis. Further evaluation with small bowel follow-through recommended. Large bowel is normal caliber. There is marked fecal retention, and cannot exclude thickening in the rectosigmoid. No gross diverticulitis. Appendix not definitely seen. There is diffuse atherosclerotic calcification of the abdominal aorta, without a demonstrated aneurysm. Normal inferior vena cava. Normal retroperitoneum. Normal urinary bladder. There is enlargement of the prostate gland calcifications. Normal abdominal wall. There are diffuse degenerative changes of the visualized lumbar spine. CT/Abdomen/Pelvis W IV Cont ONLY IMPRESSION: Evaluation of the GI tract is limited by absence of oral contrast, but there is definitely extreme thickening of small bowel wall consistent with a severe enteritis. Marked fecal retention. Distended gallbladder, dilated common bile duct and pancreatic duct. Correlate with liver function tests. Electronically Signed: Dustin Rahman MD at 21:53 EST , Service support , CC: Dada Kulkarni MD; Alvaro Bradley MD Autom[employer] Service Station Mechanic: Signed DOWNTIME REPORT Observed: 04/10/2018 Status: F Source: [place] 11:52 AM [facility] Medical Records Department [address] [place] [address] Downtime Report MR#: [id number] Acct: [id number] Name: NAV CHAVEZ Rep #: [id number] : 1955 62 From: Xavier Gonzales PCP: Dada Kulkarni MD Status: REG RCR This patient was seen during an EMR downtime March 24, 2018 - March 31, 2018. This patient may have a combination of paper and electronic documentation or all paper documentation. All documentation is viewable within the e-chart portion of [facility] for each patient visit. PROGRESS Observed: 02/06/2018 Status: COMPLETED Source: [place] 11:59 AM [facility] RE[facility] HNO ID: [id number] Author: Barb Reed (Pa) Service: (none) Author Type: Physician Leather Leveler Type: Progress Notes Filed: 02/06/2018 3:43 PM Note Text: FOLLOW UP VISIT - ENDOSCOPY NAME: Nav Chavez [facility] NO.: [id number] DATE OF SERVICE: 02/06/2018 : 1955 REFERRING PHYSICIAN: Dada Kulkarni MD Nav is a patient I am following for abdominal pain and weight loss. Dr. Myers performed upper and lower endoscopy on 01/28/18. The patient was found to have duodenitis, gastritis and two colon polyps which were removed. Pathology demonstrated: MICROSCOPIC DIAGNOSIS A. Duodenal biopsy: Fragment of duodenal mucosa with Alyssa gland hyperplasia. B. Antral biopsy: Mild gastritis. See microscopic description and comment. C. Transverse colon polyp, biopsy: Tubular adenoma. D. Rectosigmoid polyp at 20 cm, biopsy: Tubular adenoma. SJ:norma 01/29/18 COMMENT B. The results of immunohistochemistry for Helicobacter pylori will be reported separately ([id number]). MICROSCOPIC DESCRIPTION Slides are reviewed. B. The specimen shows fragments of gastric mucosa with chronic inflammatory cell infiltrates in the lamina propria consisting of lymphocytes and plasma cells, consistent with mild chronic gastritis. A minute fragment of duodenal mucosa is also noted. RESULTS: ANTIBODY / CLONE RESULT Block B H Pylori (polyclonal) negative These tests were developed and their performance characteristics determined by [facility]. They may not have been cleared or approved by the U.S. Food and Drug Administration. The FDA has determined that such clearance or approval is not necessary. INTERPRETATION: B. Antral biopsy: Negative for Helicobacter pylori organisms. The patient notes no complaints since the procedure. He notes he is actually feeling greatly improved since the time of his initial consultation visit. He denies abdominal pain currently, states he is appetite is good and he is starting to gain back a little bit of weight. He is taking the omeprazole as directed. He is still using tobacco currently. VITALS: Blood pressure 120/74, pulse 108, weight 54.9 kg (121 lb). On examination, the abdomen is benign. Assessment IMPRESSION: abdominal pain, resolved. EGD findings of gastritis. Adenomatous polyps removed during colonoscopy PLAN: -Continue omeprazole as discussed -Strongly recommend tobacco cessation in addition to other dietary and lifestyle modifications as discussed -Repeat colonoscopy in 3 years Patient verbalized understanding of all above and agreed with the plan Diagnoses: (D36.9) Tubular adenoma (primary encounter diagnosis) (K29.30) Chronic superficial gastritis without bleeding Return to Clinic: The patient is instructed to follow- up with me as needed. I spent 20 minutes in the visit, with more than 50% of the total uqyz-gh-twsv time of the visit in counseling / coordination of care. LISSA Montilla Observed: 02/06/2018 Status: COMPLETED Source: [place] 9:00 AM [facility] REPOS[facility] Office Visit (GENSWS) NAV CHAVEZ ([id number]) 1955 M Date Time Provider Department 02/06/18 9:00 AM BARB REED (PA) During your visit today, we recorded the following information about you: Pulse Blood pressure Weight 108/minute 120/74 54.9 kg Barb Reed PA-C 02/06/2018 11:59 AM Addendum The following instructions are important for you related to your office visit today with the [facility]. INSTRUCTIONS FOLLOWING A POLYP FOUND AT COLONOSCOPY You were found to have adenomatous colon polyps. I recommend you undergo repeat endoscopy in 3 years. If you note bleeding, change in bowel habits, or other suspicious colon related symptoms before that time, those symptoms should be evaluated as necessary. If you have any difficulties or concerns, you should contact our office immediately. and INSTRUCTIONS FOR PEPTIC ULCER DISEASE/GASTRITIS and duodenitis I discussed with you the findings of your upper endoscopy. Your upper endoscopy demonstrated signs of peptic ulcer disease or irritation. This can be seen as a range of issues from actual ulcers in the stomach or duodenum (first part of the small bowel) or irritation ranging from redness to more significant irritation with erosions of the stomach or duodenum. These conditions are usually caused from a combination of too much acid production or too little protective mucus production in the stomach. Factors that increase acid production include smoking and stress. If you smoke, stopping smoking will often cure these issues without needing other medications. Factors that decrease the stomach's production of protective mucus include alcohol consumption, smoking, aspirin and other anti-inflammatory use. Over the counter medications including antiacids and acid reducing medications including H2 blockers (Zantac and the like) and proton pump inhibitors (prilosec, prevacid and the like) neutralize or prevent acid production. Prescription strength proton pump inhibitors (PPIs) may be necessary if your symptoms persist. Carafate may be added to PPI treatment in refractory cases. Avoiding smoking, alcohol and antiinflammatory medications are important in the successful treatment of peptic diseases. New or worsening symptoms such are epigastric pain, burning, difficulty swallowing or food sticking should be relayed to your physician. Feeling full early after eating, or black, tarry, foul smelling stools are also worrisome. If you have any difficulties or concerns, you should contact our office immediately. If you note any additional difficulties, questions, or concerns, you should contact our office immediately @ [phone] and ask to be transferred to the General Surgery department. Barb Reed PA-C 02/06/2018 3:43 PM Signed FOLLOW UP VISIT - ENDOSCOPY NAME: Nav Chavez CLINIC NO.: [id number] DATE OF SERVICE: 02/06/2018 : 1955 REFERRING PHYSICIAN: Dada Kulkarni MD Nav is a patient I am following for abdominal pain and weight loss. Dr. Myers performed upper and lower endoscopy on 01/28/18. The patient was found to have duodenitis, gastritis and two colon polyps which were removed. Pathology demonstrated: MICROSCOPIC DIAGNOSIS A. Duodenal biopsy: Fragment of duodenal mucosa with Alyssa gland hyperplasia. B. Antral biopsy: Mild gastritis. See microscopic description and comment. C. Transverse colon polyp, biopsy: Tubular adenoma. D. Rectosigmoid polyp at 20 cm, biopsy: Tubular adenoma. SJ:norma 01/29/18 COMMENT B. The results of immunohistochemistry for Helicobacter pylori will be reported separately ([id number]). MICROSCOPIC DESCRIPTION Slides are reviewed. B. The specimen shows fragments of gastric mucosa with chronic inflammatory cell infiltrates in the lamina propria consisting of lymphocytes and plasma cells, consistent with mild chronic gastritis. A minute fragment of duodenal mucosa is also noted. RESULTS: ANTIBODY / CLONE RESULT Block B H Pylori (polyclonal) negative These tests were developed and their performance characteristics determined by [facility]. They may not have been cleared or approved by the U.S. Food and Drug Administration. The FDA has determined that such clearance or approval is not necessary. INTERPRETATION: B. Antral biopsy: Negative for Helicobacter pylori organisms. The patient notes no complaints since the procedure. He notes he is actually feeling greatly improved since the time of his initial consultation visit. He denies abdominal pain currently, states he is appetite is good and he is starting to gain back a little bit of weight. He is taking the omeprazole as directed. He is still using tobacco currently. VITALS: Blood pressure 120/74, pulse 108, weight 54.9 kg (121 lb). On examination, the abdomen is benign. Assessment IMPRESSION: abdominal pain, resolved. EGD findings of gastritis. Adenomatous polyps removed during colonoscopy PLAN: -Continue omeprazole as discussed -Strongly recommend tobacco cessation in addition to other dietary and lifestyle modifications as discussed -Repeat colonoscopy in 3 years Patient verbalized understanding of all above and agreed with the plan Diagnoses: (D36.9) Tubular adenoma (primary encounter diagnosis) (K29.30) Chronic superficial gastritis without bleeding Return to Clinic: The patient is instructed to follow- up with me as needed. I spent 20 minutes in the visit, with more than 50% of the total hgms-xk-nwee time of the visit in counseling / coordination of care. Barb Reed PA-C Referring Provider: SELF [200] Allergies As of Date: 02/06/2018 (No Known Allergies) Date Reviewed: 02/06/2018 Reviewed by: Barb (Elijah) - Fully Assessed Reason for Visit: Post Op [174] Cmt: egd Primary Visit Diagnosis:Tubular adenoma [D36.9] Other Visit Diagnosis:Chronic superficial gastritis without bleeding [K29.30] Prescriptions as of 02/06/2018 Sig: HYDROCODONE 5 MG-ACETAMINOPHE* Take 1 tablet by mouth every * CEPHALEXIN 500 MG CAPSULE Take 500 mg by mouth three ti* OMEPRAZOLE 40 MG CAPSULE,KENNEDY* Take 1 capsule by mouth twice* ACARBOSE 50 MG TABLET take 1/2 tablet by mouth thre* DOXYCYCLINE HYCLATE 100 MG CA* Take 100 mg by mouth twice da* METFORMIN 500 MG TABLET Take 500 mg by mouth twice da* OMEPRAZOLE 40 MG CAPSULE,KENNEDY* Take 1 capsule by mouth once * ALBUTEROL SULFATE CONCENTRATE* Inhale 0.5 mL as instructed o* GUAIFENESIN ER 600 MG TABLET,* Take 2 tablets by mouth twice* ALBUTEROL SULFATE HFA 90 MCG/* Inhale 2 Puffs as instructed * Medication notes this encounter HYDROCODONE 5 MG-ACETAMINOPHEN 325 MG TABLET >> Echo Sánchez RN 02/06/2018 9:03 AM >> ECHO SÁNCHEZ RN [facility] Feb 06, 2018 9:03 AM Received from: External Pharmacy CEPHALEXIN 500 MG CAPSULE >> Echo Sánchez RN 02/06/2018 9:03 AM >> ECHO SÁNCHEZ RN [facility] Feb 06, 2018 9:03 AM Received from: External Pharmacy Received Sig: TAKE 1 CAPSULE BY MOUTH EVERY 8 HOURS Problem List As Of Date 02/06/2018 Noted Resolved Abdominal pain [R10.9] INVALID FOR* More... Abnormal loss of weight [R63.4] INVALID FOR* More... Other instructions from your clinician: The following instructions are important for you related to your office visit today with the [facility]. INSTRUCTIONS FOLLOWING A POLYP FOUND AT COLONOSCOPY You were found to have adenomatous colon polyps. I recommend you undergo repeat endoscopy in 3 years. If you note bleeding, change in bowel habits, or other suspicious colon related symptoms before that time, those symptoms should be evaluated as necessary. If you have any difficulties or concerns, you should contact our office immediately. and INSTRUCTIONS FOR PEPTIC ULCER DISEASE/GASTRITIS and duodenitis I discussed with you the findings of your upper endoscopy. Your upper endoscopy demonstrated signs of peptic ulcer disease or irritation. This can be seen as a range of issues from actual ulcers in the stomach or duodenum (first part of the small bowel) or irritation ranging from redness to more significant irritation with erosions of the stomach or duodenum. These conditions are usually caused from a combination of too much acid production or too little protective mucus production in the stomach. Factors that increase acid production include smoking and stress. If you smoke, stopping smoking will often cure these issues without needing other medications. Factors that decrease the stomach's production of protective mucus include alcohol consumption, smoking, aspirin and other anti-inflammatory use. Over the counter medications including antiacids and acid reducing medications including H2 blockers (Zantac and the like) and proton pump inhibitors (prilosec, prevacid and the like) neutralize or prevent acid production. Prescription strength proton pump inhibitors (PPIs) may be necessary if your symptoms persist. Carafate may be added to PPI treatment in refractory cases. Avoiding smoking, alcohol and antiinflammatory medications are important in the successful treatment of peptic diseases. New or worsening symptoms such are epigastric pain, burning, difficulty swallowing or food sticking should be relayed to your physician. Feeling full early after eating, or black, tarry, foul smelling stools are also worrisome. If you have any difficulties or concerns, you should contact our office immediately. If you note any additional difficulties, questions, or concerns, you should contact our office immediately @ [phone] and ask to be transferred to the General Surgery department. Encounter Status:Closed by BARB REED PA-C on 02/06/18 PROGRESS Observed: 02/04/2018 Status: COMPLETED Source: [place] 8:14 PM [facility] [place] RE[facility]IT[facility] HNO ID: [id number] Author: Conrado Myers Service: (none) Author Type: Physician Type: Progress Notes Filed: 02/04/2018 8:18 PM Note Text: OPERATIVE NOTATION FOR [facility] SURGICAL PROCEDURE. January 28, 2018 Nav R Scott 1955 [id number] male PROCEDURE: EGD WITH BIOPSY - 10847-934 and COLONOSCOPY WITH SNARE POLYPECTOMY- 67980-574 SURGEON: Lucas Myers M.D. FACS [employer] CHANGEOVER OPERATOR: None DEPT: PROVIDER: [email or web address]=NfdjlnjConrado Myers MD POS: OUTPATIENT DIAGNOSIS: (K29.80) Duodenitis without bleeding (primary encounter diagnosis) (R63.4) Abnormal weight loss (K63.5) Polyp of colon, unspecified part of colon, unspecified type ASA CLASS: 3 - Severe FINDINGS: COMPLICATIONS: None PMHx - PAST MEDICAL HISTORY Diagnosis Date - Diabetes (HCC) COMORBIDITIES - IDDM Post Op Occurrences - None Wound Classification - Clean Contaminated Operative note dictated in the [facility] dictation system. Conrado Myers MD BEDSIDE GLUCOSE Collected: 01/31/2018 Status: F Source: [place] 8:58 AM [facility] TYPE CODE TESTS RESULT OUT OF RANGE REFERENCE UNITS LAB L501.080 70-110 mg/dL Normal BEDSIDE GLU 86 Result Comment: MANAGEMENT OF PATIENT CARE PER NURSING PROTOCOL Performed By: #### L501.080 #### [facility] Point of Care [address] [place] [address] OPERATIVE REPORT Observed: 01/31/2018 Status: F Source: [place] 8:25 AM [facility] Medical Records Department [address] [place] [place] [address] Operative Report 01/31/18 0822 MR#: [id number] Acct: [id number] Name: NAV CHAVEZ Rep #: [id number] : 1955 62 From: Leander Arce MD PCP: Dada Kulkarni MD Status: REG SDC Y Location: [place] [address] Report of Operation Date of Procedure: 01/31/18 Pre-Operative Diagnosis: Left large hydrocele Post-Operative Diagnosis: Same Surgery/Procedure Performed:: Left hydrocelectomy Description of Surgical Findings:: 62-year-old male was taken back to the operating room at the smooth induction of general anesthesia he was placed supine on the table the scrotum was shaved prepped and draped in usual sterile fashion. I then identified a large hydrocele in the left hemiscrotum infiltrated the skin with Marcaine. I then made an incision across the hemiscrotum about 4 cm in size dissected down to the tunica sac. I then delivered the hydrocele completely obtain hemostasis on the inside of the scrotum open up the hydrocele with a knife excised the edges of the hydrocele all the way from the cord to around the testicle. I then ran a suture all the way around the excision site for hemostasis. I then placed the scrotum testicle back into the scrotum. In good position. I made a small incision in the upper part of the scrotum placed the drain around the testicle. I then closed the first layer with running 3-0 chromic I then closed the second layer of the skin with a running 3-0 chromic in subcuticular fashion. The drain was then engaged. Anesthesia is currently being reversed plan to see him back next week to have the drain removed. Type of Anesthesia:: General Drains: OTTO - Admit VTE Documentation VTE Present on Admission: No VTE Mechan Device Prophylaxis: SCD's VTE Pharm Prophylaxis ordered?: No Reason prophylaxis not ordered:: Treatment Not Indicated 01/31/18 0825 <Electronically signed by Leander Arce MD> Date Leander Arce MD CC: Dada Kulkarni MD; Leander Arce MD Signed DISCHARGE INSTRUCTION Observed: 01/31/2018 Status: F Source: [place] 7:52 AM [facility] Medical Records Department [address] [place] [address] Instructions for Home/Discharge Instructions 01/31/18 0747 MR#: [id number] Acct: [id number] Name: NAV CHAVEZ Rep #: [id number] : 1955 62 From: Leander Arce MD PCP: Dada Kulkarni MD Status: REG [facility] Discharge Diet: Light diet - advance as tolerated Discharge Activity: May not drive while taking narcotic pain medications., May Shower Return to work on:: 02/10/18 May shower in (days): 1 Call your doctor if your incision/area has: Continuous Slow Oozing, Sudden Increased Bleeding, Increased Pain/ Swelling, Increased Redness, Foul Smelling Discharge, Swelling at the incision site Call your doctor if you observe: Fever of 101 or Higher, Uncontrolled pain Suture Line Care: Avoid Pulling/Pushing, Avoid Pinching/Bending Instructions: Hydrocele Surgery (Hydrocelectomy), Discharge Instructions: Caring for Your Ji Padron Drainage Tube Allergies/Adverse Reactions: Allergies No Known Allergies Allergy (Verified 12/13/17 09:26) Medications to take at Discharge Acarbose [Precose] 25 mg PO TID #90 tab 12/13/17 Albuterol IH (ProAir) [Proair Hfa (SP)Vent Pts] 2 puff INHALATION Q4H PRN PRN 12/13/17 Metformin HCl 500 mg PO BID #90 tab 12/13/17 Cephalexin [Keflex] 500 mg PO Q8 #30 cap 01/31/18 Hydrocodone/Acetaminophen [[place] 5-325 Tablet] 1 ea PO Q4H PRN PRN 7 Days #20 tab 01/31/18 The following prescriptions were given: Hydrocodone/Acetaminophen [[place] 5-325 Tablet] 1 ea PO Q4H PRN PRN 7 Days #20 tab PRN Reason: Pain Cephalexin [Keflex] 500 mg PO Q8 #30 cap Primary Care Physician: Dada Kulkarni MD [Primary Care Provider] - Please Follow Up With: Leander Arce MD When: , February 06 at 2:45 pm. 01/31/18 0752 <Electronically signed by Leander Acre MD> Date Leander Arce MD CC: Dada Kulkarni MD HYDROCELE Observed: 01/31/2018 Status: F Source: [place] 7:50 AM [facility] Patient: NAV CHAVEZ : 1955 (62/M) Acct Num: [id number] Phys: Yazmin FLORES,Leander Quan Unit Num: [id number] Loc: [facility] Specimen: [id number] Received: 01/31/18 - 1316 Spec Type: HYDROCELE TISSUES TISSUES: HYDROCELE GROSS DESCRIPTION Received in fixative is one container labeled with the patient's name and designated left hydrocele sac. The specimen consists of two pieces of fibromembranous tissue measuring in aggregate 8 x 6 x 0.4 cm. No mass lesion is identified. Psychological Assistant sections are submitted in one cassette. / SJ:norma TC:5 CPT: 18635 HEADER OPERATION: Hydrocelectomy PRE-OP DIAGNOSIS: Left hydrocele TISSUE SUBMITTED: Left hydrocele sac MICROSCOPIC DESCRIPTION Slides are reviewed. MICROSCOPIC DIAGNOSIS Left hydrocele sac: Consistent with hydrocele sac. SJ:norma 02/03/18 Signed Juan M Flores 02/03/18 <signature on file> Performed By: #### PHYD #### [facility] [address] [place], [address] BEDSIDE GLUCOSE Collected: 01/31/2018 Status: F Source: [place] 5:56 AM [facility] TYPE CODE TESTS RESULT OUT OF RANGE REFERENCE UNITS LAB L501.080 70-110 mg/dL Normal BEDSIDE GLU 82 Result Comment: MANAGEMENT OF PATIENT CARE PER NURSING PROTOCOL Performed By: #### L501.080 #### [facility] Point of Care [address] [place] [address] OPERATIVE REPORT Observed: 01/28/2018 Status: F Source: [place] 8:24 PM [facility] RE[facility] Medical Records Department [address] [place] [address] Operative Report 01/28/18 1302 MR#: [id number] Acct: [id number] Name: NAV CHAVEZ Rep #: [id number] : 1955 62 From: Conrado Myers MD PCP: Dada Kulkarni MD Status: [facility] Y Location: Report of Operation Date of Procedure: 01/28/18 Pre-Operative Diagnosis: failure to thrive, weight loss Post-Operative Diagnosis: duodenitis, mid transverse and sigmoid colon polyp Surgery/Procedure Performed:: EGD with biopsy, Colonoscopy with polypectomy wind energy project manager: None Specimen's removed: antrum, colon polyps Description of Procedure: The patient was brought to the endoscopy suite. Sign in was performed verifying patient, site, planned procedure, critical nursing information, the patient was monitored with cardiac, pulse oximetric, and blood pressure monitoring devices. Monitored anesthetic care was provided for sedation. Following IV sedation and after the oropharynx was sprayed with Cetacaine spray, a video gastroscope was inserted in the oropharynx and advanced down the esophagus without difficulty. The scope was advanced through the stomach, through the pylorus through the duodenum to the proximal jejunum. the jejunum was unremarkable. The second and third portions of the duodenum unremarkable. There was moderate hemorrhagic duodenitis. There was mild to moderate distal gastritis with slight proximal gastritis. The esophagus appeared unremarkable The patient was positioned for colonoscopy. A digital rectal exam was performed which revealed no palpable abnormalities The video colonoscope was inserted and advanced to the cecum as verified by the ileocecal valve, cecal base anatomic features and palpation. there was a smaller sessile polyp in the mid transverse colon and a larger sessile polyp in the distal sigmoid colon. These were removed with snare polypectomy. There were a few small diverticula. Sigmoid region. Otherwise, the colon was unremarkable. The endoscope was retroflexed in the rectum appeared unremarkable. The patient tolerated the procedure well and was brought to recovery in stable condition. the patient was discharged with instructions. Start Prilosec 40 mg twice a day and follow up with Barb Reed in one week. 01/28/182023 <Electronically signed by Conrado Myers MD> Date Conrado Myers MD CC: Dada Kulkarni MD; Conrado Myers MD Signed COLON BIOPSY (CHOOSE Observed: 01/28/2018 Status: F Source: [place] SITE) 1:18 PM [facility] Patient: NAV CHAVEZ : 1955 (62/M) Acct Num: [id number] Phys: Lucia FLORES,Conrado Unit Num: [id number] Loc: EN Specimen: [id number] Received: 01/28/181446 Spec Type: COLON BX TISSUES TISSUES: A. Duodenum, NOS B. Gastric mucous membrane C. Transverse colon D. Sigmoid colon biopsy COMMENT B. The results of immunohistochemistry for Helicobacter pylori will be reported separately ([id number]). GROSS DESCRIPTION A - Received in fixative is one container labeled with the patient's name and designated duodenal biopsy. The specimen consists of one irregular fragment of light mayorga soft tissue that measures 0.3 x 0.1 x 0.1 cm. The specimen is totally submitted in one cassette. B - Received in fixative is one container labeled with the patient's name and designated antral biopsy. The specimen consists of two irregular fragments of light mayorga soft tissue that in aggregate measure 0.3 x 0.3 x 0.1 cm. The specimen is totally submitted in one cassette. C - Received in fixative is one container labeled with the patient's name and designated transverse colon polyp. The specimen consists of one irregular fragment of light mayorga soft tissue that measures 0.3 x 0.3 x 0.1 cm. The specimen is totally submitted in one cassette. D - Received in fixative is one container labeled with the patient's name and designated rectosigmoid polyp. The specimen consists of one irregular fragment of light mayorga soft tissue that measures 0.6 x 0.3 x 0.2 cm. The specimen is totally submitted in one cassette. / AM:rg 01/28/18 TC:1 CPT: 64299 x4 HEADER OPERATION: EGD, colonoscopy PRE-OP DIAGNOSIS: Failure to thrive, weight loss, abdomen pain TISSUE SUBMITTED: A Duodenal biopsy, B Antral biopsy, C Transverse colon polyp, D Rectosigmoid polyp at 20 cm MICROSCOPIC DESCRIPTION Slides are reviewed. B. The specimen shows fragments of gastric mucosa with chronic inflammatory cell infiltrates in the lamina propria consisting of lymphocytes and plasma cells, consistent with mild chronic gastritis. A minute fragment of duodenal mucosa is also noted. MICROSCOPIC DIAGNOSIS A. Duodenal biopsy: Fragment of duodenal mucosa with Alyssa gland hyperplasia. B. Antral biopsy: Mild gastritis. See microscopic description and comment. C. Transverse colon polyp, biopsy: Tubular adenoma. D. Rectosigmoid polyp at 20 cm, biopsy: Tubular adenoma. SJ:norma 01/29/18 Signed Juan M Flores 01/29/18 <signature on file> Performed By: #### PCOLBX #### [facility] [address] [place], [address] BEDSIDE GLUCOSE Collected: 01/28/2018 Status: F Source: [place] 10:43 AM [facility] TYPE CODE TESTS RESULT OUT OF RANGE REFERENCE UNITS LAB L501.080 70-110 mg/dL Normal BEDSIDE GLU 94 Result Comment: MANAGEMENT OF PATIENT CARE PER NURSING PROTOCOL Performed By: #### L501.080 #### [facility] Point of Care [address] [place] [address] CNOP Observed: 01/28/2018 Status: COMPLETED Source: [place] 12:00 AM [facility] REPOSITORY Operative Note (Enc) (GENSWS) Progress Notes: Conrado Myers MD 02/04/2018 8:18 PM Signed OPERATIVE NOTATION FOR [facility] SURGICAL PROCEDURE. January 28, 2018 Nav Fernandez Scott 1955 [id number] male PROCEDURE: EGD WITH BIOPSY - 34741-424 and COLONOSCOPY WITH SNARE POLYPECTOMY- 13187-503 SURGEON: Lucas Myers M.D. FACS LOOM CHANGEOVER OPERATOR: None DEPT: WQ PROVIDER: [id number] Myers MD POS: OUTPATIENT DIAGNOSIS: (K29.80) Duodenitis without bleeding (primary encounter diagnosis) (R63.4) Abnormal weight loss (K63.5) Polyp of colon, unspecified part of colon, unspecified type ASA CLASS: 3 - Severe FINDINGS: COMPLICATIONS: None PMHx - PAST MEDICAL HISTORY Diagnosis Date - Diabetes (HCC) COMORBIDITIES - IDDM Post Op Occurrences - None Wound Classification - Clean Contaminated Operative note dictated in the [facility] dictation system. Conrado Myers MD Encounter Status:Closed by CONRADO MYERS MD on 02/04/18 IMMUNOHISTOCHEMISTRY Observed: 01/28/2018 Status: F Source: [place] 12:00 AM [facility] Patient: NAV CHAVEZ : 1955 (62/M) Acct Num: [id number] Phys: Lucia FLORES,Conrado Unit Num: [id number] Loc: EN Specimen: [id number] Received: 01/29/181049 Spec Type: IMMUNO TISSUES TISSUES: B. Stomach, NOS SPECIMEN INFORMATION: Tissue Source: B Antral biopsy Clinical Info: Failure to thrive, weight loss, abdomen pain Specimen Number: [id number] CPT code: 60629 METHODOLOGY: Deparaffinized sections of prefer/formalin-fixed tissue or PAP/DQ stained slides are incubated with monoclonal/polyclonal antibodies/oligonucleotide probes. Localization is made via biotin free immunoperoxidase method. Appropriate controls are performed and reacted as expected. Results on target cell population are indicated in the following table: RESULTS: ANTIBODY / CLONE RESULT Block B H Pylori (polyclonal) negative These tests were developed and their performance characteristics determined by [facility]. They may not have been cleared or approved by the U.S. Food and Drug Administration. The FDA has determined that such clearance or approval is not necessary. INTERPRETATION: B. Antral biopsy: Negative for Helicobacter pylori organisms. SJ:norma 01/30/18 PHYSICIAN AND INSTITUTION [place] [phone] Signed Juan M Flores 04/12/18 <signature on file> Performed By: #### PIMM #### [facility] [address] [place], [place], [address] PROTHROMBIN TIME W/INR Collected: 01/10/2018 Status: F Source: [place] 12:58 PM [facility] TYPE CODE TESTS RESULT OUT OF RANGE REFERENCE UNITS LAB L300.4150 11.7-14.9 SECONDS Normal PROTIME 13.2 LAB L300.4200 Normal INR 1.0 Performed By: #### L300.3900 #### [facility] [address] [place], [address] COMPREHENSIVE METABOLIC Collected: 01/10/2018 Status: F Source: [facility] 12:58 PM [facility] TYPE CODE TESTS RESULT OUT OF RANGE REFERENCE UNITS LAB L501.0100 74-106 mg/dL High GLU 117 Result Comment: Fasting Glucose result from 100 to 125 mg/dL suggests IMPAIRED HOMEOSTASIS per A.D.A. criteria. Please note revised GLUCOSE reference range effective 2017. LAB L501.1000 7-18 mg/dL Normal BUN 10 LAB L501.1100 0.70-1.30 mg/dL Normal CREAT,SERUM 0.87 Result Comment: The validity of the calculated GFR AND GFRAA in patients over 70 years has not been determined. Clinical correlation is essential. LAB L501.1110 >60 mL/min Normal EST GFR 95 Result Comment: Non- GFR Calc LAB L501.1115 >60 mL/min Normal EST GFR - AA 115 Result Comment: GFR Calc LAB L501.1300 10-20 RATIO Normal BUN/CRE 11.5 LAB L501.1500 6.4-8.2 g/dL T Normal PROT 8.0 LAB L501.1800 3.2-5.0 g/dL Normal ALB 3.3 LAB L501.1950 2.2-4.2 g/dL High GLOB 4.7 LAB L501.2000 0.9-2.4 RATIO Low A/G 0.7 LAB L501.2200 8.5-10.1 mg/dL CA Normal 9.4 LAB L501.4100 15-37 U/L Low AST 10 LAB L501.4305 45-117 U/L Normal ALK P 113 LAB L501.4405 16-61 U/L Normal ALT 20 Result Comment: Please note revised ALT reference range effective 2017. LAB L501.4600 0.20-1.00 mg/dL Normal T BILI 0.20 LAB L501.5300 136-145 mmol/L Low NA 135 LAB L501.5600 3.5-5.1 mmol/L Normal K 4.0 LAB L501.5900 98-107 mmol/L Normal CL 100 LAB L501.6100 21.0-32.0 mmol/L Normal CO2 32.0 LAB L501.6200 5-15 Low GAP 3 Performed By: #### L500.4050, L506.0500 #### [facility] [address] [place], [address] PREALBUMIN Collected: 01/10/2018 Status: F Source: [place] 12:58 PM [facility] TYPE CODE TESTS RESULT OUT OF RANGE REFERENCE UNITS LAB L506.0500 20.0-40.0 mg/dL Normal PREALBUMIN 24.9 Performed By: #### L500.4050, L506.0500 #### [facility] [address] [place], [place], [address] CBC W/DIFF, AUTOMATED Collected: 01/10/2018 Status: F Source: [place] 12:58 PM [facility] TYPE CODE TESTS RESULT OUT OF RANGE REFERENCE UNITS LAB L100.1000 4.4-11.0 K/mm3 High WBC 11.3 LAB L100.1200 4.6-6.2 M/mm3 Low RBC 4.12 LAB L100.1300 13.0-16.5 g/dl Low HGB 12.9 LAB L100.1400 40-54 % Normal HCT 40.7 LAB L100.1500 80-94 fL High MCV 98.8 LAB L100.1600 27.0-32.0 pg Normal MCH 31.3 LAB L100.1700 32-36 g/gl Low MCHC 31.7 LAB L100.1810 11.6-14.6 % Normal RDW CV 14.4 LAB L100.1820 35.1-43.9 fl High RDW SD 51.9 LAB L100.1900 150-450 K/mm3 Normal PLT 432 LAB L100.2000 6.2-12.0 fl Normal MPV 10.1 LAB L100.2100 47-70 % High NEUT% 72.4 LAB L100.2200 19-41 % Low LY% 17.1 LAB L100.2300 0-10 % Normal MONO% 7.0 LAB L100.2400 0-5 % Normal EO% 1.9 LAB L100.2500 0-1 % Normal BASO% 0.4 LAB L100.2550 0.0-0.9 % High IM GRAN % 1.200 Result Comment: IG% - Immature Granulocytes (promyelocytes, myelocytes and metamyelocytes) > 1% indicates that a LEFT SHIFT is Present. LAB L100.2620 2.0-7.7 X10 3/uL High Absolute Neut 8.2 LAB L100.2720 0.83-4.51 X10 3/ul Normal Absolute Lymph 1.94 Performed By: #### L100.0100 #### [facility] [address] [place], [address] ABDOMEN/PELVIS WITH Observed: 01/06/2018 Status: F Source: [place] CONTRAST 2:17 PM [facility] Imaging Services [address] [place] [address] Abdomen/Pelvis WITH Contrast MR#: [id number] Acct: [id number] Name: NAV CHAVEZ Rep #: [id number] : 1955 M 62 From: Tommy Olmedo DO PCP: Dada Kulkarni MD Status: REG CLI Study: Abdomen/Pelvis WITH Contrast Date of Exam: 01/06/18 Exam# [id number] Ordering Dr: Dada Kulkarni MD ADDENDUM by Tommy Olmedo on 01/07/[address]/Abdomen/Pelvis WITH Contrast 01/07/18 1547 Date cc: Dada Kulkarni MD * Signed ADDENDUM by Tommy Olmedo on 01/07/18 at 1540 ADDENDUM ADDENDUM: Review of the study demonstrates marked atherosclerotic changes bilateral external iliac arteries with poor visualization of the contrast. This may represent occlusion or near complete occlusion although contrast is seen in both common femoral arteries. A CTA of the lower extremity may be of benefit in better defining the degree of stenosis.. Sydnee Cruz RN, Dr. Dada Kulkarni nurse, was advised of these findings via telephone communication at 1540 hours EST on January 07, 2018. The doctor was not available. Electronically Signed: Tommy Olmedo DO at 15:40 EDT Tel [phone], Service support , 01/07/18 1540 Date cc: Dada Kulkarni MD * Signed STUDY: CT ABDOMEN AND PELVIS WITH CONTRAST REASON FOR EXAM: Male, 62 years old. Lower abdominal pain. Left testicular swelling for one month. 20 pound weight loss in 1 month. RADIATION DOSAGE (If Supplied By Facility): CTDIvol = ( 8.63 ) mGy, DLP = ( 377.82 ) mGycm TECHNIQUE: Transaxial images were obtained from the dome of the diaphragm to the symphysis pubis with oral contrast. 100 ml of Isovue 300 contrast was administered. Sagittal and coronal images were reconstructed. Individualized dose optimization techniques were used for this CT. COMPARISON: None. FINDINGS: The lungs are emphysematous changes of the lung bases.. The visualized portions of the heart are within normal limits. Normal liver. Normal gallbladder and extrahepatic biliary system. Multiple hypodensities within the spleen thought to represent cysts. Normal pancreas. Normal bilateral adrenal glands. Normal right kidney. Normal left kidney. Normal visualized stomach. Normal small intestine. Normal colon. The appendix is visualized and appears normal. There is diffuse atherosclerotic calcification of the abdominal aorta, without a demonstrated aneurysm. Normal inferior vena cava. Normal retroperitoneum. The urinary bladder is well distended. There is no mass or filling defect. The prostate is mildly enlarged with central calcifications. Prominent seminal vesicles. There is no pelvic lymphadenopathy. No free air or free fluid is seen within the peritoneal cavity. Normal abdominal wall. There is a massive left sided hydrocele measuring 9.5 x 8 cm in size. There are diffuse degenerative changes of the visualized lumbar spine. CT/Abdomen/Pelvis WITH Contrast IMPRESSION: 1. Massive left hydrocele. 2. Enlarged prostate. 3. Multiple splenic cysts. 4. Degenerative changes of the lumbar spine. 5. Mild emphysematous changes of the lungs. Electronically Signed: Tommy Olmedo DO at 15:08 EDT Tel [phone], Service support , CC: Dada Kulkarni MD Automobile Service Station Mechanic: Signed PROGRESS Observed: 01/01/2018 Status: COMPLETED Source: [place] 9:49 AM [facility] REPOSITORY O ID: [id number] Author: Barb Reed (Pa) Service: (none) Author Type: Physician Leather Leveler Type: Progress Notes Filed: 01/02/2018 2:53 PM Note Text: HISTORY AND PHYSICAL Nav Fernandez Scott 1955 REFERRING PHYSICIAN: Self CHIEF COMPLAINT: Abdominal Pain HPI: The patient is a 62 year old male referred for evaluation. Nav notes a 1-month history of worsening epigastric pain, as well as bloating and intermittent lower abdominal discomfort. Patient notes pain seems less severe in the morning, then worsens after drinking his morning coffee. Associated symptoms include nausea, decreased appetite, and few episodes of emesis. Patient denies hematemesis or coffee- ground emesis. He has noted some constipation. Denies blood in stools or black tarry stools. He notes a significant weight loss of 150 to 116 lbs over the last few months. He is a tobacco user, smokes 1/2 pack of cigarettes daily, has COPD. Patient reports he had been in good overall health until the last couple of months. He was sent to the emergency department at [facility] on 12/13/17 after being seen at Urgent Care for upper respiratory complaints and nausea and was found to have a glucose level of 405. He was started on metformin and precose but states he has not been back to his PCP, Dr. Dada Kulkarni, to follow up on his newly diagnosed diabetes. The patient also had a chest CT at that ED visit which showed no acute disease. More recently on 12/30/17 patient presented to the emergency department for his abdominal complaints and nausea. He had an abdominal CT scan which showed gallbladder wall thickening and common bile duct 9.3mm. Ultrasound of the right upper quadrant showed small amount of sludge without wall thickening or pericholecystic fluid. Dr. Myers was contacted and reviewed the imaging, did not feel this was convincing for triue cholecystitis and recommended outpatient follow-up. Labs reviewed in [facility] also showed recent CEA of 5.6. Patient has never had a screening colonoscopy. PAST MEDICAL HISTORY Diagnosis Date - Diabetes (HCC) PAST SURGICAL HISTORY Procedure Laterality Date - NONE Current Outpatient Prescriptions: acarbose (PRECOSE) 50 mg tablet take 1/2 tablet by mouth three times a day doxycycline hyclate (VIBRAMYCIN) 100 mg capsule Take 100 mg by mouth twice daily. metFORMIN (GLUCOPHAGE) 500 mg tablet Take 500 mg by mouth twice daily. albuterol (PROVENTIL) 5 mg/mL nebu Inhale 0.5 mL as instructed one time only for 1 dose. 1 DOSE NOW - BACK OFFICE. PLACE 0.5 ML PER DROPPER AND 2.5 ML OF NORMAL SALINE INTO RESERVOIR. guaiFENesin (MUCINEX) 600 mg 12 hr tablet Take 2 tablets by mouth twice daily. albuterol HFA (PROAIR HFA) 90 mcg/actuation inhaler Inhale 2 Puffs as instructed every 4 hours as needed. No current facility-administered medications for this visit. ALLERGIES: Review of patient's allergies indicates no known allergies. PERSONAL HISTORY: Social History Marital status: Single Spouse name: Years of education: Number of children: Social History Main Topics Smoking status: Current Every Day Smoker Packs/day: 1.00 Years: 30.00 Types: Cigarettes Smokeless status: Never Used Alcohol use: No Comment: history of FAMILY HISTORY: FAMILY HISTORY Problem Relation Age of Onset - alcoholism [OTHER] Father - Diabetes Sister - Diabetes Sister REVIEW OF SYMPTOMS: The review of systems data was entered by the nurse and reviewed by me Nursing Notes: Niranjan Buchanan LPN 01/01/2018 10:13 AM Signed REVIEW OF SYSTEMS: General: The patient NOTES fatigue, NOTES weight loss, denies weight gain, denies feeling hot, and NOTES feelings of cold. Eyes: The patient denies glaucoma, denies eye injury/surgery, wears glasses or contacts. Ear/Nose/Throat: The patient denies allergies, denies hayfever, denies ear infections, and denies bloody noses. Cardiovascular: The patient denies chest pain, denies heart disease, denies high blood pressure,denies cardiac stent, denies prior heart attack, denies irregular heart beat, denies high cholesterol, denies poor circulation, denies heart failure, other cardiac issues, denies claudication, denies cold feet, denies peripheral arterial stent. Respiratory: The patient denies tuberculosis, denies pneumonia, denies frequent cough, denies pulmonary embolism, denies shortness of breath, and denies coughing up blood. Gastrointestinal: The patient denies difficulty swallowing, denies acid reflux, denies ulcers, denies vomiting, denies jaundice/hepatitis, denies gallbladder problems, denies black or tarry stools, denies hemorrhoids, denies bleeding from rectum, denies diverticulitis, denies constipation, denies diarrhea, denies loss of stool control, and denies hernias. Kidney/Bladder: The patient denies kidney stones, denies urine infections, and denies bloody urine. Skin: The patient denies a history of skin cancer, denies bleeding/changing moles, and denies a history of skin rash. Neurologic: The patient denies a history of epilepsy/convulsions, denies headaches, denies head/spinal injuries, and denies stroke/TIA. Psychiatric: The patient denies psychiatric medications, denies depression, and denies voices, denies substance abuse. Endocrine: The patient denies thyroid disorders, denies diabetes, and denies hormonal problems. Hematologic: The patient denies a history of bruising, denies bleeding, and denies anemia, denies blood clots. Infections: The patient denies a history of measles and mumps, denies rheumatic fever, and denies sexually transmitted diseases. Musculoskeletal: The patient denies back pain/injury, denies back problems, denies sciatica, denies knee/foot trouble, denies arthritis, or denies gout. When was patient's last Mammogram screening? N/A Last Colonoscopy: None Niranjan Reed PA-C PHYSICAL EXAMINATION: General: The patient is 62 year old male, well nourished, well hydrated in no acute distress. The patient is oriented to time, place, and person. VITALS: Blood pressure 140/76, pulse 96, height 177.8 cm (5' 10), weight 52.6 kg (116 lb). Body mass index is 16.64 kg/(m2). HEENT: Normal cephalic, ataumatic, pupils are equally round, sclera are anicteric, mucous membranes are moist, oropharynx is clear. Neck has no masses, asymmetry or lymphadenopathy. Respiratory: Clear to auscultation and percussion. Normal respiratory excursion and pattern. Cardiac: Examination is regular rate and rhythm. Abdominal exam: Soft, nontender, with no palpable masses. No hepatosplenomegaly. No palpable hernias. Rectal exam: exam deferred Extremities: no clubbing, cyanosis or edema. No adenopathy. Other: LABORATORY VALUES: As Noted RADIOLOGIC STUDIES: As Noted Assessment IMPRESSION: abdominal pain, weight loss-recommend upper and lower endoscopy PLAN: I have reviewed my findings with Dr. Myers, who also participated in development of the following plan. We will plan for upper and lower endoscopy for further evaluation of patient's complaints. We have recommended that patient first be evaluated by his PCP Dr. Dada Kulkarni as patient has not yet followed up with him after his recent ER visits which showed abnormal lab findings including elevated CEA level and newly diagnosed diabetes mellitus. Called Dr. Kulkarni's office who made appointment for patient for next week, and requested medical clearance following this appointment to proceed with scheduling endoscopy. We discussed the risks and benefits of the planned endoscopy. I have informed the patient that complications can occur including failure to complete the endoscopy and perforation. The patient had the opportunity to ask questions concerning the planned endoscopy. My staff has also explained the procedure to the patient in understandable terms and has given the patient printed material concerning the procedure. The patient freely consents to surgery. I plan to use golytely bowel preparation for endoscopy I have recommended initiation of omeprazole while awaiting upper endoscopy and have strongly recommended tobacco cessation as well as avoidance of caffeine and spicy foods due to his abdominal complaints Patient verbalized understanding of all above and agreed with the plan Diagnoses: (R10.84) Generalized abdominal pain (primary encounter diagnosis) (R63.4) Abnormal weight loss (R73.9) Elevated blood sugar This note will be forwarded to Dr. Dada Kulkarni MD. Return to Clinic: The patient is instructed to follow-up with me 1 week post operatively. I spent 30 minutes in the visit, with more than 50% of the total [id number] time of the visit in counseling / coordination of care. Barb Reed PA-C CNOV Observed: 01/01/2018 Status: COMPLETED Source: [place] 9:30 AM [facility] REPOSITORY Office Visit (GENSWS) NAV CHAVEZ ([id number]) 1955 M Date Time Provider Department 01/01/18 9:30 AM BARB REED (PA) During your visit today, we recorded the following information about you: Pulse Blood pressure Weight Height 96/minute 140/76 52.6 kg 1.778 m Barb Reed PA-C 01/02/2018 2:53 PM Signed HISTORY AND PHYSICAL Nav Chavez 1955 REFERRING PHYSICIAN: Self CHIEF COMPLAINT: Abdominal Pain HPI: The patient is a 62 year old male referred for evaluation. Nav notes a 1-month history of worsening epigastric pain, as well as bloating and intermittent lower abdominal discomfort. Patient notes pain seems less severe in the morning, then worsens after drinking his morning coffee. Associated symptoms include nausea, decreased appetite, and few episodes of emesis. Patient denies hematemesis or coffee-ground emesis. He has noted some constipation. Denies blood in stools or black tarry stools. He notes a significant weight loss of 150 to 116 lbs over the last few months. He is a tobacco user, smokes 1/2 pack of cigarettes daily, has COPD. Patient reports he had been in good overall health until the last couple of months. He was sent to the emergency department at [facility] on 12/13/17 after being seen at Urgent Care for upper respiratory complaints and nausea and was found to have a glucose level of 405. He was started on metformin and precose but states he has not been back to his PCP, Dr. Dada Kulkarni, to follow up on his newly diagnosed diabetes. The patient also had a chest CT at that ED visit which showed no acute disease. More recently on 12/30/17 patient presented to the emergency department for his abdominal complaints and nausea. He had an abdominal CT scan which showed gallbladder wall thickening and common bile duct 9.3mm. Ultrasound of the right upper quadrant showed small amount of sludge without wall thickening or pericholecystic fluid. Dr. Myers was contacted and reviewed the imaging, did not feel this was convincing for triue cholecystitis and recommended outpatient follow-up. Labs reviewed in [facility] also showed recent CEA of 5.6. Patient has never had a screening colonoscopy. PAST MEDICAL HISTORY Diagnosis Date - Diabetes (HCC) PAST SURGICAL HISTORY Procedure Laterality Date - NONE Current Outpatient Prescriptions: acarbose (PRECOSE) 50 mg tablet take 1/2 tablet by mouth three times a day doxycycline hyclate (VIBRAMYCIN) 100 mg capsule Take 100 mg by mouth twice daily. metFORMIN (GLUCOPHAGE) 500 mg tablet Take 500 mg by mouth twice daily. albuterol (PROVENTIL) 5 mg/mL nebu Inhale 0.5 mL as instructed one time only for 1 dose. 1 DOSE NOW - BACK OFFICE. PLACE 0.5 ML PER DROPPER AND 2.5 ML OF NORMAL SALINE INTO RESERVOIR. guaiFENesin (MUCINEX) 600 mg 12 hr tablet Take 2 tablets by mouth twice daily. albuterol HFA (PROAIR HFA) 90 mcg/actuation inhaler Inhale 2 Puffs as instructed every 4 hours as needed. No current facility-administered medications for this visit. ALLERGIES: Review of patient's allergies indicates no known allergies. PERSONAL HISTORY: Social History Marital status: Single Spouse name: Years of education: Number of children: Social History Main Topics Smoking status: Current Every Day Smoker Packs/day: 1.00 Years: 30.00 Types: Cigarettes Smokeless status: Never Used Alcohol use: No Comment: history of FAMILY HISTORY: FAMILY HISTORY Problem Relation Age of Onset - alcoholism [OTHER] Father - Diabetes Sister - Diabetes Sister REVIEW OF SYMPTOMS: The review of systems data was entered by the nurse and reviewed by me Nursing Notes: Niranjan Buchanan LPN 01/01/2018 10:13 AM Signed REVIEW OF SYSTEMS: General: The patient NOTES fatigue, NOTES weight loss, denies weight gain, denies feeling hot, and NOTES feelings of cold. Eyes: The patient denies glaucoma, denies eye injury/surgery, wears glasses or contacts. Ear/Nose/Throat: The patient denies allergies, denies hayfever, denies ear infections, and denies bloody noses. Cardiovascular: The patient denies chest pain, denies heart disease, denies high blood pressure,denies cardiac stent, denies prior heart attack, denies irregular heart beat, denies high cholesterol, denies poor circulation, denies heart failure, other cardiac issues, denies claudication, denies cold feet, denies peripheral arterial stent. Respiratory: The patient denies tuberculosis, denies pneumonia, denies frequent cough, denies pulmonary embolism, denies shortness of breath, and denies coughing up blood. Gastrointestinal: The patient denies difficulty swallowing, denies acid reflux, denies ulcers, denies vomiting, denies jaundice/hepatitis, denies gallbladder problems, denies black or tarry stools, denies hemorrhoids, denies bleeding from rectum, denies diverticulitis, denies constipation, denies diarrhea, denies loss of stool control, and denies hernias. Kidney/Bladder: The patient denies kidney stones, denies urine infections, and denies bloody urine. Skin: The patient denies a history of skin cancer, denies bleeding/changing moles, and denies a history of skin rash. Neurologic: The patient denies a history of epilepsy/convulsions, denies headaches, denies head/spinal injuries, and denies stroke/TIA. Psychiatric: The patient denies psychiatric medications, denies depression, and denies voices, denies substance abuse. Endocrine: The patient denies thyroid disorders, denies diabetes, and denies hormonal problems. Hematologic: The patient denies a history of bruising, denies bleeding, and denies anemia, denies blood clots. Infections: The patient denies a history of measles and mumps, denies rheumatic fever, and denies sexually transmitted diseases. Musculoskeletal: The patient denies back pain/injury, denies back problems, denies sciatica, denies knee/foot trouble, denies arthritis, or denies gout. When was patient's last Mammogram screening? N/A Last Colonoscopy: None Niranjan Reed PA-C PHYSICAL EXAMINATION: General: The patient is 62 year old male, well nourished, well hydrated in no acute distress. The patient is oriented to time, place, and person. VITALS: Blood pressure 140/76, pulse 96, height 177.8 cm (5' 10ANDquot;), weight 52.6 kg (116 lb). Body mass index is 16.64 kg/(m2). HEENT: Normal cephalic, ataumatic, pupils are equally round, sclera are anicteric, mucous membranes are moist, oropharynx is clear. Neck has no masses, asymmetry or lymphadenopathy. Respiratory: Clear to auscultation and percussion. Normal respiratory excursion and pattern. Cardiac: Examination is regular rate and rhythm. Abdominal exam: Soft, nontender, with no palpable masses. No hepatosplenomegaly. No palpable hernias. Rectal exam: exam deferred Extremities: no clubbing, cyanosis or edema. No adenopathy. Other: LABORATORY VALUES: As Noted RADIOLOGIC STUDIES: As Noted Assessment IMPRESSION: abdominal pain, weight loss-recommend upper and lower endoscopy PLAN: I have reviewed my findings with Dr. Myers, who also participated in development of the following plan. We will plan for upper and lower endoscopy for further evaluation of patient's complaints. We have recommended that patient first be evaluated by his PCP Dr. Dada Kulkarni as patient has not yet followed up with him after his recent ER visits which showed abnormal lab findings including elevated CEA level and newly diagnosed diabetes mellitus. Called Dr. Kulkarni's office who made appointment for patient for next week, and requested medical clearance following this appointment to proceed with scheduling endoscopy. We discussed the risks and benefits of the planned endoscopy. I have informed the patient that complications can occur including failure to complete the endoscopy and perforation. The patient had the opportunity to ask questions concerning the planned endoscopy. My staff has also explained the procedure to the patient in understandable terms and has given the patient printed material concerning the procedure. The patient freely consents to surgery. I plan to use golytely bowel preparation for endoscopy I have recommended initiation of omeprazole while awaiting upper endoscopy and have strongly recommended tobacco cessation as well as avoidance of caffeine and spicy foods due to his abdominal complaints Patient verbalized understanding of all above and agreed with the plan Diagnoses: (R10.84) Generalized abdominal pain (primary encounter diagnosis) (R63.4) Abnormal weight loss (R73.9) Elevated blood sugar This note will be forwarded to Dr. Dada Kulkarni MD. Return to Clinic: The patient is instructed to follow-up with me 1 week post operatively. I spent 30 minutes in the visit, with more than 50% of the total [id number] time of the visit in counseling / coordination of care. LISSA Montilla LPN 01/01/2018 10:13 AM Signed REVIEW OF SYSTEMS: General: The patient NOTES fatigue, NOTES weight loss, denies weight gain, denies feeling hot, and NOTES feelings of cold. Eyes: The patient denies glaucoma, denies eye injury/surgery, wears glasses or contacts. Ear/Nose/Throat: The patient denies allergies, denies hayfever, denies ear infections, and denies bloody noses. Cardiovascular: The patient denies chest pain, denies heart disease, denies high blood pressure,denies cardiac stent, denies prior heart attack, denies irregular heart beat, denies high cholesterol, denies poor circulation, denies heart failure, other cardiac issues, denies claudication, denies cold feet, denies peripheral arterial stent. Respiratory: The patient denies tuberculosis, denies pneumonia, denies frequent cough, denies pulmonary embolism, denies shortness of breath, and denies coughing up blood. Gastrointestinal: The patient denies difficulty swallowing, denies acid reflux, denies ulcers, denies vomiting, denies jaundice/hepatitis, denies gallbladder problems, denies black or tarry stools, denies hemorrhoids, denies bleeding from rectum, denies diverticulitis, denies constipation, denies diarrhea, denies loss of stool control, and denies hernias. Kidney/Bladder: The patient denies kidney stones, denies urine infections, and denies bloody urine. Skin: The patient denies a history of skin cancer, denies bleeding/changing moles, and denies a history of skin rash. Neurologic: The patient denies a history of epilepsy/convulsions, denies headaches, denies head/spinal injuries, and denies stroke/TIA. Psychiatric: The patient denies psychiatric medications, denies depression, and denies voices, denies substance abuse. Endocrine: The patient denies thyroid disorders, denies diabetes, and denies hormonal problems. Hematologic: The patient denies a history of bruising, denies bleeding, and denies anemia, denies blood clots. Infections: The patient denies a history of measles and mumps, denies rheumatic fever, and denies sexually transmitted diseases. Musculoskeletal: The patient denies back pain/injury, denies back problems, denies sciatica, denies knee/foot trouble, denies arthritis, or denies gout. When was patient's last Mammogram screening? N/A Last Colonoscopy: None Niranjan Buchanan LPN Referring Provider: SELF [200] Allergies As of Date: 01/01/2018 (No Known Allergies) Date Reviewed: 01/01/2018 Reviewed by: Niranjan Buchanan LPN - Fully Assessed Reason for Visit: Abdominal Pain [1] Primary Visit Diagnosis:Generalized abdominal pain [R10.84] Other Visit Diagnoses:Abnormal weight loss [R63.4] Elevated blood sugar [R73.9] Order(s):EGD [[id number]] Order #: [id number] FUTURE COLONOSCOPY - DIAGNOSTIC [[id number]] Order #: [id number] FUTURE [] peg 3350-Electrolytes (GOLYTELY) 236-22.74-6.74 -5.86 gram suspensionTake 4,000 mL by mouth one time only for 1 dose.Disp: 1 BottleRfl: 0 Omeprazole 40 mg capsuleTake 1 capsule by mouth once daily.Disp: 30 capsuleRfl: 0 Prescriptions as of 01/01/2018 Sig: ACARBOSE 50 MG TABLET take 1/2 tablet by mouth thre* DOXYCYCLINE HYCLATE 100 MG CA* Take 100 mg by mouth twice da* METFORMIN 500 MG TABLET Take 500 mg by mouth twice da* PEG 3350-ELECTROLYTES 236 GRA* Take 4,000 mL by mouth one ti* OMEPRAZOLE 40 MG CAPSULE,KENNEDY* Take 1 capsule by mouth once * ALBUTEROL SULFATE CONCENTRATE* Inhale 0.5 mL as instructed o* GUAIFENESIN ER 600 MG TABLET,* Take 2 tablets by mouth twice* ALBUTEROL SULFATE HFA 90 MCG/* Inhale 2 Puffs as instructed * Medication notes this encounter ACARBOSE 50 MG TABLET >> Niranjan Buchanan LPN 01/01/2018 9:35 AM >> NIRANJAN BUCHANAN LPN SatJan 01, 2018 9:35 AM Received from: External Pharmacy DOXYCYCLINE HYCLATE 100 MG CAPSULE >> Niranjan Buchanan LPN 01/01/2018 9:35 AM >> NIRANJAN BUCHANAN LPN SatJan 01, 2018 9:35 AM Received from: External Pharmacy Received Sig: take 1 capsule by mouth twice a day METFORMIN 500 MG TABLET >> Niranjan Buchanan LPN 01/01/2018 9:35 AM >> NIRANJAN BUCHANAN LPN SatJan 01, 2018 9:35 AM Received from: External Pharmacy Received Sig: take 1 tablet by mouth twice a day Problem List As Of Date: 01/01/2018 (None) Visit Notes: >> Niranjan Buchanan LPN SatJan 01, 2018 10:13 AM Status: Signed REVIEW OF SYSTEMS: General: The patient NOTES fatigue, NOTES weight loss, denies weight gain, denies feeling hot, and NOTES feelings of cold. Eyes: The patient denies glaucoma, denies eye injury/surgery, wears glasses or contacts. Ear/Nose/Throat: The patient denies allergies, denies hayfever, denies ear infections, and denies bloody noses. Cardiovascular: The patient denies chest pain, denies heart disease, denies high blood pressure,denies cardiac stent, denies prior heart attack, denies irregular heart beat, denies high cholesterol, denies poor circulation, denies heart failure, other cardiac issues, denies claudication, denies cold feet, denies peripheral arterial stent. Respiratory: The patient denies tuberculosis, denies pneumonia, denies frequent cough, denies pulmonary embolism, denies shortness of breath, and denies coughing up blood. Gastrointestinal: The patient denies difficulty swallowing, denies acid reflux, denies ulcers, denies vomiting, denies jaundice/hepatitis, denies gallbladder problems, denies black or tarry stools, denies hemorrhoids, denies bleeding from rectum, denies diverticulitis, denies constipation, denies diarrhea, denies loss of stool control, and denies hernias. Kidney/Bladder: The patient denies kidney stones, denies urine infections, and denies bloody urine. Skin: The patient denies a history of skin cancer, denies bleeding/changing moles, and denies a history of skin rash. Neurologic: The patient denies a history of epilepsy/convulsions, denies headaches, denies head/spinal injuries, and denies stroke/TIA. Psychiatric: The patient denies psychiatric medications, denies depression, and denies voices, denies substance abuse. Endocrine: The patient denies thyroid disorders, denies diabetes, and denies hormonal problems. Hematologic: The patient denies a history of bruising, denies bleeding, and denies anemia, denies blood clots. Infections: The patient denies a history of measles and mumps, denies rheumatic fever, and denies sexually transmitted diseases. Musculoskeletal: The patient denies back pain/injury, denies back problems, denies sciatica, denies knee/foot trouble, denies arthritis, or denies gout. When was patient's last Mammogram screening? N/A Last Colonoscopy: None Niranjan Buchanan LPN Prescriptions ordered this encounter Disp Refills Start End PEG 3350-ELECTROLYTES 236 GRAM-22.74* 1 Luan* 0 01/01/2018 01/01/2018 Route: ORAL Sig: Take 4,000 mL by mouth one time only for 1 dose. OMEPRAZOLE 40 MG CAPSULE,DELAYED REL* 30 c* 0 01/01/2018 Route: ORAL Sig: Take 1 capsule by mouth once daily. Follow-up and Disposition History Recorded Letter Text Department of General Surgery [address] [place], [place] [id number] 01/01/2018 Nav Chavez [address] [facility] [id number] TO WHOM IT MAY CONCERN: This is to confirm that Nav Chavez had an appointment and was seen at the [facility] in the Department of General Surgery by Barb Reed PA-C on 01/01/2018. Sincerely yours, Barb Reed PA-C Encounter Status:Closed by BARB REED PA-C on 01/02/18 DISCHARGE INSTRUCTION Observed: 12/30/2017 Status: F Source: [place] 7:05 PM [facility] REPOSITORY [facility] Medical Records Department [address] [place] [address] Discharge Instruction 12/30/17 1904 MR#: [id number] Acct: [id number] Name: NAV CHAVEZ Rep #: [id number] : 1955 62 From: Oracio Mane MD PCP: Dada Kulkarni MD Status: REG ER ED Disposition - Plan for ED Patient: Chief Complaint: Abd Pain Instructions: ED Abdominal Pain Unkn Cause Male, ED Hydrocele Type Not Specified Referrals: Dada Kulkarni MD [Primary Care Provider] - Delfin Roman MD [STAFF PHYSICIAN] - Conrado Myers MD [STAFF PHYSICIAN] - Leander Arce MD [STAFF PHYSICIAN] - Additional Instructions: Follow up with Dr. Myers and Dr. Roman for your abdominal pain. Follow up with Dr. Arce for testicle swelling and hydrocele. What to do if you have Problems For any increased pain, shortness of breath, bleeding, nausea or vomiting, chest pain, or any unexpected problems, contact your Primary Care Provider. Call [facility] ([phone]) or report to the closest Emergency Room. Call 911 if necessary. 12/30/17 190 <Electronically signed by Oracio Mane MD> Date Oracio Mane MD Cosigner Signature (If Indicated): Date CC: Dada Kulkarni MD EMERGENCY DEPARTMENT Observed: 12/30/2017 Status: F Source: [place] SUMMARY 7:04 PM [facility] REPOSITORY [facility] Medical Records Department [address] [place] [address] Emergency Department Summary 12/30/17 1556 MR#: [id number] Acct: [id number] Name: NAV CHAVEZ Rep #: [id number] : 1955 62 From: Michell Ornelas DO PCP: Dada Kulkarni MD Status: REG ER ADDENDUM by Oracio Mane MD on 12/30/17 at 1904 Patient was signed out to me to follow-up on CT scan result. It was felt that if this was unremarkable the patient could likely be discharged home to follow-up as an outpatient. CT returned notable for gallbladder wall thickening with fluid and common bile duct of 9.3 mm. I did perform an independent examination the patient. He has some mild diffuse tenderness in the bilateral lower quadrants right upper and lower quadrant but he does not have focal tenderness he does not have a Rosales sign. I spoke to Dr. Nunez regarding results who also reviewed the images. Clinical suspicion for acute cholecystitis is low. We did obtain a right upper quadrant ultrasound shows gallbladder sludge but actually normal gallbladder wall and no pericholecystic fluid. Common bile duct is 10 mm. Patient does not have jaundice or evidence of biliary obstruction at this time. I do believe the patient can safely follow-up as an outpatient. He was referred both to surgery and gastroenterology. Additionally he was given a urology referral for large hydrocele on the left. He understands to return for new or worsening symptoms. All questions answered bedside. Patient discharged. Date Oracio Mane MD cc: Dada Kulkarni MD * Signed - ER Visit Summary Date of Service: 12/30/17 Chief Complaint: [Abdominal pain] History of Present Illness: The patient is a 62 M [presents to the emergency department with abdominal pain that he has had off-and-on for the last 2 weeks. Patient had an episode of nausea and vomiting this morning. He describes pain in his right back and right lower quadrant. Patient is also had some swelling in his left scrotum for some time he was told it was a hydrocele. Patient does have discomfort to that area as well. Patient denies any fevers. He denies any diarrhea. He denies any blood in his stool or black tarry stools. Patient's last bowel movement was yesterday which was small amount and prior to that may be admitted for close to a week since his last bowel movement.] Physical Examination: [HEENT-PERRLA, EOMI. Cranial nerves II through XII grossly intact. TMs clear. Mucous membranes moist. No adenopathy. Cardiovascular-regular rate and rhythm without murmur or ectopy Lungs-clear to auscultation, chest wall stable without crepitus or subcu emphysema Abdomen-normoactive bowel sounds, soft patient has tenderness to the right lower quadrant with some guarding. There is no rebound, rigidity or perineal signs. exam-patient is not circumcised, scrotum is enlarged and patient has tenderness to palpation of the left testicle and scrotum. Patient has no evidence for torsion. Extremities-intact 4, normal range of motion, normal pulses, atraumatic] Test Results: [CBC with differential obtained showed a white blood cell count of 13.4, hemoglobin 12, hematocrit 35, platelets 349. Chemistries were unremarkable. LFTs were unremarkable. Lactate was 1.2. CT scan abdomen pelvis ordered and pending] Emergency Department Course and Treatment: [Patient case will be turned over the evening physician awaiting CT results and final disposition] Treatment Plan: [Pending] Disposition: [Pending] Impression: [Abdominal pain] This note was generated with SiConnect dictation software. It may contain incorrect words, spelling, and punctuation that were not noted in review of the chart prior to signing ED Disposition - Plan for ED Patient: Chief Complaint: Abd Pain Referrals: Dada Kulkarni MD [Primary Care Provider] - What to do if you have Problems For any increased pain, shortness of breath, bleeding, nausea or vomiting, chest pain, or any unexpected problems, contact your Primary Care Provider. Call [facility] ([phone]) or report to the closest Emergency Room. Call 911 if necessary. 12/30/17 1600 <Electronically signed by Michell Ornelas DO> Date Michell Ornelas DO Cosigner Signature (If Indicated): Date CC: Dada Kulkarni MD GALLBLADDER Observed: 12/30/2017 Status: F Source: [place] 5:43 PM [facility] Imaging Services [address] [address] Gallbladder MR#: [id number] Acct: [id number] Name: NAV CHAVEZ Rep #: [id number] : 1955 M 62 From: Haseeb Church DO PCP: Dada Kulkarni MD Status: REG ER Study: Gallbladder Date of Exam: 12/30/17 Exam# [id number] Ordering Dr: Oracio Mane MD STUDY: ABDOMINAL ULTRASOUND - RIGHT UPPER QUADRANT REASON FOR VISIT: Male, 62 years old. Right upper quadrant pain TECHNIQUE: Ultrasound evaluation of the right upper quadrant was performed with real-time and static williamson-scale imaging. TECHNICAL QUALITY: Adequate. COMPARISON: None. FINDINGS: Liver: The liver measures 17.3 cm. There is normal echogenicity of the liver. The bile ducts are within normal limits. There is hepatic color flow. The direction of portal flow is hepatopetal. There is a 10 mm left hepatic cyst. Gallbladder: Normal distended gallbladder. The gallbladder wall measures 3 mm. There is a negative sonographic Rosales's sign. There is no pericholecystic fluid. There are no gallstones. Possible trace gallbladder sludge. Common Bile Duct (C.B.D.): The common bile duct measures 10 mm. Pancreas: Limited of the pancreas. Right Kidney: Normal size of the right kidney. The right kidney measures 11.2 x 5.3 x 6.1 cm. Normal renal cortex. The right cortex measures 2.1 cm. There is no demonstrated renal mass or cyst. There is no right hydronephrosis. US/Gallbladder IMPRESSION: Slight gallbladder sludge. Dilated common bile duct. Electronically Signed: Haseeb Church DO at 18:38 EDT Tel [phone], Service support , CC: Dada Kulkarni MD; Oracio Mane MD [employer] Mechanic: Signed URINALYSIS, COMPLETE Collected: 12/30/2017 Status: F Source: [place] 3:45 PM [facility] Order Comment: Order Date: 12/30/17 How was Urine Obtained? CLEAN CATCH TYPE CODE TESTS RESULT OUT OF RANGE REFERENCE UNITS LAB L400.3000 Yellow COLOR Normal Yellow LAB L400.3050 Clear Normal CLARITY Clear LAB L400.3200 Normal mg/dl High GLUCOSE, UR 100 LAB L400.3300 Negative mg/dL Normal BILIRUBIN URINE Negative LAB L400.3400 Negative mg/dl High 15 KETONE UR LAB L400.3465 1.002-1.030 Normal SP.GR. DIPSTX 1.020 LAB L400.3550 5.0 - 8.0 pH UR Normal 6.0 LAB L400.3600 Negative mg/dl High PROT 30 DIPSTX LAB L400.3700 Normal mg/dl High 1 UROBILI LAB L400.3750 Negative Normal NITRITE UR Negative LAB L400.3780 Negative /ul Normal OCCULT BLOOD-UR Negative LAB L400.3800 Negative /ul High LEUK 25 ESTERASE LAB L400.4050 0-5 /hpf WBC 0 Normal SEEN LAB L400.4100 0-5 /hpf Normal RBC-UA 0-5 SEEN LAB L400.4150 0-5 /hpf SQUAM 0 Normal EPI SEEN LAB L400.4300 None Seen /hpf 0 Normal BACTERIA SEEN LAB L400.4350 <or=2+ /hpf 0 Normal MUCUS, URINE SEEN Performed By: #### L400.0001 #### [facility] [address] [place], [place], [id number] CBC W/DIFF, AUTOMATED Collected: 12/30/2017 Status: F Source: [place]EX 3:00 PM [facility] TYPE CODE TESTS RESULT OUT OF RANGE REFERENCE UNITS LAB L100.1000 4.4-11.0 K/mm3 High WBC 13.4 LAB L100.1200 4.6-6.2 M/mm3 Low RBC 3.69 LAB L100.1300 13.0-16.5 g/dl Low HGB 12.0 LAB L100.1400 40-54 % Low HCT 35.3 LAB L100.1500 80-94 fL High MCV 95.7 LAB L100.1600 27.0-32.0 pg High MCH 32.5 LAB L100.1700 32-36 g/gl Normal MCHC 34.0 LAB L100.1810 11.6-14.6 % Normal RDW CV 13.2 LAB L100.1820 35.1-43.9 fl High RDW SD 44.4 LAB L100.1900 150-450 K/mm3 Normal PLT 349 LAB L100.2000 6.2-12.0 fl Normal MPV 9.7 LAB L100.2100 47-70 % High NEUT% 75.7 LAB L100.2200 19-41 % Low LY% 13.8 LAB L100.2300 0-10 % Normal MONO% 8.0 LAB L100.2400 0-5 % Normal EO% 1.3 LAB L100.2500 0-1 % Normal BASO% 0.2 LAB L100.2550 0.0-0.9 % High IM GRAN % 1.000 Result Comment: IG% - Immature Granulocytes (promyelocytes, myelocytes and metamyelocytes) > 1% indicates that a LEFT SHIFT is Present. LAB L100.2620 2.0-7.7 X10 3/uL High Absolute Neut 10.2 LAB L100.2720 0.83-4.51 X10 3/ul Normal Absolute Lymph 1.86 Performed By: #### L100.0100 #### [facility] [address] [facility] [place], [address] COMPREHENSIVE METABOLIC Collected: 12/30/2017 Status: F Source: [facility] 3:00 PM [facility] TYPE CODE TESTS RESULT OUT OF RANGE REFERENCE UNITS LAB L501.0100 74-106 mg/dL High GLU 238 Result Comment: Glucose result greater than or equal to 200 mg/dL suggests DIABETES MELLITUS per A.D.A. criteria. Please note revised GLUCOSE reference range effective 2017. LAB L501.1000 7-18 mg/dL High BUN 28 LAB L501.1100 0.70-1.30 mg/dL Normal CREAT,SERUM 0.76 Result Comment: The validity of the calculated GFR AND GFRAA in patients over 70 years has not been determined. Clinical correlation is essential. LAB L501.1110 >60 mL/min Normal EST GFR 110 Result Comment: Non- GFR Calc LAB L501.1115 >60 mL/min Normal EST GFR - AA 133 Result Comment: GFR Calc LAB L501.1255 ml/min Normal Estimated CRCL 79.58 LAB L501.1300 10-20 RATIO High BUN/CRE 36.6 LAB L501.1500 6.4-8. g/dL Normal 2 T PROT 6.6 LAB L501.1800 3.2-5. g/dL Low 0 ALB 2.6 LAB L501.1950 2.2-4. g/dL Normal 2 GLOB 4.0 LAB L501.2000 0.9-2. RATIO Low 4 A/G 0.6 LAB L501.2200 8.5-10 mg/dL Low .1 CA 8.4 LAB L501.4100 15-37 U/L Low AST 10 LAB L501.4305 45-117 U/L Normal ALK P 83 LAB L501.4405 16-61 U/L Low ALT 12 Result Comment: Please note revised ALT reference range effective 2017. LAB L501.4600 0.20-1.00 mg/dL Normal T BILI 0.20 LAB L501.5300 136-145 mmol/L Low NA 131 LAB L501.5600 3.5-5.1 mmol/L Normal K 3.8 LAB L501.5900 98-107 mmol/L Low CL 95 LAB L501.6100 21.0-32.0 mmol/L Normal CO2 31.0 LAB L501.6200 5-15 Normal GAP 5 Performed By: #### L500.4050 #### [facility] [address] [place], [place], [id number] LACTIC ACID Collected: 12/30/2017 Status: F Source: LEX 3:00 PM [facility] Order Comment: Yes/No query for Sepsis Lactate Rule Y TYPE CODE TESTS RESULT OUT OF RANGE REFERENCE UNITS LAB L503.6005 0.4-2.0 mmol/L Normal LACTIC ACID 1.2 Performed By: #### L503.6005 #### [facility] [address] [place], [address] ABDOMEN/PELVIS WITH Observed: 12/30/2017 Status: F Source: [place] CONTRAST 2:49 PM [facility] Imaging Services [address] [place] [address] Abdomen/Pelvis WITH Contrast MR#: [id number] Acct: [id number] Name: NAV CHAVEZ Rep #: [id number] : 1955 M 62 From: Mercedes Pickard MD PCP: Dada Kulkarni MD Status: DEP ER Study: Abdomen/Pelvis WITH Contrast Date of Exam: 12/30/17 Exam# [id number] Ordering Dr: Michell Ornelas DO ADDENDUM by Mercedes Pickard M.D. on 01/07/[address]/Abdomen/Pelvis WITH Contrast 01/07/18 1524 Date cc: Dada Kulkarni MD; Michell Ornelas DO * Signed ADDENDUM by Mercedes Pickard M.D. on 01/07/18 at 1517 ADDENDUM This is an addendum to abdomen findings to the report. This is also correlated with more recent study March 08, 2018. There is poor contrast enhancement of the right external iliac artery with dense calcification of the proximal and distal right external carotid artery. There is poor contrast enhancement throughout findings consistent with high-grade stenosis or occlusion. There is contrast visualized within the right common femoral artery which may be reconstituted by the profundus. In addition there is poor contrast enhancement of the left external iliac artery which shows dense calcification of the proximal left external carotid artery and reconstitution in the left common femoral artery likely from the profundus consistent with high-grade stenosis or occlusion of the left external iliac artery. Recommend consideration for follow-up study such as CT angiogram of the aorta with runoff when clinically appropriate. Electronically Signed: Mercedes Pickard MD at 15:17 EDT Tel , Service support , 01/07/18 8008 Date cc: Dada Kulkarni MD; Michell Ornelas DO * Signed STUDY: CT ABDOMEN AND PELVIS WITH CONTRAST REASON FOR EXAM: Male, 62 years old. A nausea vomiting one week left testicular swelling RADIATION DOSAGE (If Supplied By Facility): CTDIvol = ( 8.79 ) mGy, DLP = ( 579.44 ) mGycm TECHNIQUE: Transaxial images were obtained from the dome of the diaphragm to the symphysis pubis without oral contrast. 100 ml of Isovue 300 contrast was administered. Sagittal and coronal images were reconstructed. Individualized dose optimization techniques were used for this CT. COMPARISON: December 13 2017 left testicular scrotal ultrasound. FINDINGS: The visualized lung bases are unremarkable. The visualized portions of the heart are within normal limits. There is a small well-circumscribed cystic structure within the left hepatic lobe measuring 7.7 mm. There is mild wall thickening of the gallbladder or pericholecystic fluid. Stones are not definitively seen. There is a distended appearance of the common duct measuring 9.7 mm abnormal for patient's age. There is a partially exophytic cystic structure in the spleen appears to be partially calcified between the spleen and the kidney measuring 2.1 x 2.4 cm stable since prior study. There is stable cystic structures within the spleen measuring up to 2.8 x 2.1 cm. Normal pancreas. There is mild distention of the pancreatic duct. This is partially seen on the prior study CT angiogram chest. Normal right kidney. Normal left kidney. There is a minimal hiatal hernia. Stomach is relatively fluid filled. There is minimal wall thickening of the stomach allowing for peristalsis. There is a mildly thick-walled compressed appearance of the duodenum. There is abundant stool in the colon from the cecum to the rectum. The appendix is visualized and appears normal. Aorta is partially calcified. Normal inferior vena cava. Normal retroperitoneum. Normal urinary bladder. There is partial calcification of borderline enlargement of the prostate. A large amount of fluid within the left side of the scrotum measuring at least 9.3 x 7.6 cm. This was also seen on the recent prior study. There is no significant fluid tracking in the left inguinal canal. Normal abdominal wall. There is degenerative change in the thoracolumbar spine most significant at the level of L3-L4 L4-L5 and L5- S1 where there is broad disc bulge and moderate neural foraminal narrowing. There is mild central stenosis. CT/Abdomen/Pelvis WITH Contrast IMPRESSION: There is fluid adjacent to the gallbladder with wall thickening. Common duct distention up to 9.3 mm. Consider follow-up ultrasound to exclude cholecystitis. Stable multiple splenic cysts. Which can be associated with benign occurrence possible history of trauma which is thought to be less likely or due to prior history of infection. Benign-appearing hepatic cyst Significant constipation. Visualized large hydrocele on the left. No visualized appendicitis. Degenerative change throughout the lumbar spine. Electronically Signed: Mercedes Pickard MD at 17:10 EDT Tel , Service support , CC: Dada Kulkarni MD; Michell Ornelas DO [employer] Mechanic: Signed COMPREHENSIVE METABOLIC Collected: 12/24/2017 Status: F Source: [place] 12:57 PM [facility] TYPE CODE TESTS RESULT OUT OF RANGE REFERENCE UNITS LAB L501.0100 74-106 mg/dL High GLU 153 Result Comment: Fasting Glucose result greater than or equal to 126 mg/dL suggests DIABETES MELLITUS per A.D.A. criteria. Please note revised GLUCOSE reference range effective 2017. LAB L501.1000 7-18 mg/dL Normal BUN 17 LAB L501.1100 0.70-1.30 mg/dL Normal CREAT,SERUM 0.84 Result Comment: The validity of the calculated GFR AND GFRAA in patients over 70 years has not been determined. Clinical correlation is essential. LAB L501.1110 >60 mL/min Normal EST GFR 99 Result Comment: Non- GFR Calc LAB L501.1115 >60 mL/min Normal EST GFR - AA 120 Result Comment: GFR Calc LAB L501.1300 10-20 RATIO High BUN/CRE 20.2 LAB L501.1500 6.4-8.2 g/dL T Normal PROT 7.9 LAB L501.1800 3.2-5.0 g/dL Low ALB 2.6 LAB L501.1950 2.2-4.2 g/dL High GLOB 5.3 LAB L501.2000 0.9-2.4 RATIO Low A/G 0.5 LAB L501.2200 8.5-10.1 mg/dL CA Normal 9.4 LAB L501.4100 15-37 U/L Low AST 13 LAB L501.4305 45-117 U/L Normal ALK P 94 LAB L501.4405 16-61 U/L Low ALT 12 Result Comment: Please note revised ALT reference range effective 2017. LAB L501.4600 0.20-1.00 mg/dL Normal T BILI 0.60 LAB L501.5300 136-145 mmol/L Low NA 134 LAB L501.5600 3.5-5.1 mmol/L Normal K 4.0 LAB L501.5900 98-107 mmol/L Low CL 96 LAB L501.6100 21.0-32.0 mmol/L Normal CO2 29.0 LAB L501.6200 5-15 Normal GAP 9 Performed By: #### L500.4050, L501.2450, L501.6710, L501.9910 #### [facility] [address] [place], [place], [address] LIPASE Collected: 12/24/2017 Status: F Source: [place] 12:57 PM [facility] TYPE CODE TESTS RESULT OUT OF RANGE REFERENCE UNITS LAB L501.2450 73-393 U/L Normal LIPASE 239 Performed By: #### L500.4050, L501.2450, L501.6710, L501.9910 #### [facility] [address] [place], [address] CRP Collected: 12/24/2017 Status: F Source: [place] 12:57 PM [facility] TYPE CODE TESTS RESULT OUT OF RANGE REFERENCE UNITS LAB L501.6710 0.0-3.0 mg/L High 144.00 C-REACTIVE PROT Result Comment: C-Reactive Protein (CRP) provides useful information for the diagnosis, therapy and monitoring of inflammatory processes and associated diseases. For the evaluation of Relative Risk for Cardiovascular Disease, a High Sensitivity CRP (HSCRP) should be ordered. Performed By: #### L500.4050, L501.2450, L501.6710, L501.9910 #### [facility] [address] [place], [address] PSA,TOTAL - ANNUAL Collected: 12/24/2017 Status: F Source: [place] SCREEN 12:57 PM [facility] TYPE CODE TESTS RESULT OUT OF RANGE REFERENCE UNITS LAB L501.9910 0.00-4.00 ng/mL Normal PSA,TOT 1.13 SCREEN Result Comment: This test was performed using the TPSA assay method for the Xcerion chemistry system. Values obtained with different assay methods cannot be used interchangably. When changing PSA assays in the course of monitoring a patient, additional sequential testing should be carried out to confirm baseline values. Performed By: #### L500.4050, L501.2450, L501.6710, L501.9910 #### [facility] [address] [place], [address] CBC W/DIFF, AUTOMATED Collected: 12/24/2017 Status: F Source: [place] 12:57 PM [facility] TYPE CODE TESTS RESULT OUT OF RANGE REFERENCE UNITS LAB L100.1000 4.4-11.0 K/mm3 Normal WBC 9.6 LAB L100.1200 4.6-6.2 M/mm3 Low RBC 4.21 LAB L100.1300 13.0-16.5 g/dl Normal HGB 13.4 LAB L100.1400 40-54 % Normal HCT 40.7 LAB L100.1500 80-94 fL High MCV 96.7 LAB L100.1600 27.0-32.0 pg Normal MCH 31.8 LAB L100.1700 32-36 g/gl Normal MCHC 32.9 LAB L100.1810 11.6-14.6 % Normal RDW CV 13.6 LAB L100.1820 35.1-43.9 fl High RDW SD 48.3 LAB L100.1900 150-450 K/mm3 Normal PLT 329 LAB L100.2000 6.2-12.0 fl Normal MPV 11.0 LAB L100.2100 47-70 % High NEUT% 77.7 LAB L100.2200 19-41 % Low LY% 14.8 LAB L100.2300 0-10 % Normal MONO% 6.7 LAB L100.2400 0-5 % Normal EO% 0.5 LAB L100.2500 0-1 % Normal BASO% 0.2 LAB L100.2550 0.0-0.9 % Normal IM GRAN % 0.100 Result Comment: IG% - Immature Granulocytes (promyelocytes, myelocytes and metamyelocytes) > 1% indicates that a LEFT SHIFT is Present. LAB L100.2620 2.0-7.7 X10 3/uL Normal Absolute Neut 7.4 LAB L100.2720 0.83-4.51 X10 3/ul Normal Absolute Lymph 1.41 Performed By: #### L100.0100 #### [facility] [address] [place] [address]. [place], [place], [id number] CARCINOEMBRYONIC ANTIGEN Collected: 12/24/2017 Status: F Source: [place] 12:57 PM [facility] TYPE CODE TESTS RESULT OUT OF RANGE REFERENCE UNITS LAB L3100.2300 0.0-4.7 ng/mL High CEA 5.6 Result Comment: Ebuzzing and Teads ECLIA methodology Nonsmokers <3.9 Smokers <5.6 Performed at: - [facility] [id number] Unemployment Inspector: Delfin Cramer PhD, Phone: [phone] Performed By: #### L3100.2300 #### [facility] (refer to report for specific site) refer to report for address and phone number VENOUS DUPLEX LOWER Observed: 12/23/2017 Status: F Source: [place] EXTREMITY 8:20 PM [facility] Cardiovascular Services [address] [place] [address] Venous Duplex US, Unilateral 12/23/17 1551 MR#: [id number] Acct: [id number] Name: NAV CHAVEZ Rep #: [id number] : 1955 62 From: Kolby Martin MD Attending Dr: Shad FLORES,Dada Status: REG CLI Ordering Dr: Dada Kulkarni MD Date: 12/23/17 Location: CVS Sex: M C Admitted: Reason For Study: LEG PAIN AND SWELLING RIGHT LEFT GSV is normal. CFV is compressible, spontaneous, phasic, CFV is compressible, spontaneous, phasic, competent, and demonstrates normal competent and demonstrates normal augmentation. augmentation. FV is compressible, spontaneous, phasic, competent and demonstrates normal augmentation. POP V is compressible, spontaneous, phasic, competent and demonstrates normal augmentation. T/P Trunk is compressible. PTV is compressible. RT PerV is compressible. Procedure Exam performed in department. A preliminary report was called and/or faxed to Dr. Kulkarni. Interpretation Summary Deep veins of the right lower extremity are patent and compressible segmentally. There is no evidence of right lower extremity deep vein thrombosis. Valvular competence appears intact within the proximal deep venous system on the right . The right greater saphenous vein appears patent and compressible segmentally. Ordering Physician: Dada Kulkarni Referring Physician: Dada Kulkarni Performed By: Judy Church RVT 12/23/172019 Date Kolby Martin MD CC: Dada Kulkarni MD Date Dictated: 12/23/17 1551 Date Transcribed: 12/23/172019 [employer] Mechanic: Signed 12 LEAD ELECTROCARDIOGRAM Observed: 12/17/2017 Status: F Source: [place] 1:13 PM [facility] Cardiovascular Services [address] [place] [address] 12 Lead EKG 12/13/17 1006 MR#: [id number] Acct: [id number] Name: NAV CHAVEZ Rep #: [id number] : 1955 62 From: Michael Knight MD Attending Dr: Status: DEP ER Ordering Dr: Michael Monaco DO Date: 12/13/17 Location: ED Sex: M C Admitted: Test Reason : SOB Blood Pressure : / mmHG Vent. Rate : 071 BPM Atrial Rate : 071 BPM P-R Int : 152 ms QRS Dur : 108 ms QT Int : 366 ms P-R-T Axes : 077 107 067 degrees QTc Int : 397 ms Normal sinus rhythm J point elevation, consider pericarditis Abnormal ECG Confirmed by MICHAEL KNIGHT ([id number]), clinical editor CARLOS GONZALES ([id number]) on 12/17/2017 1:13:13 PM Referred By: KAE Confirmed By:MICHAEL KNIGHT 12/17/17 1313 Date Michael Knight MD CC: No Primary Care Physician; Michael Monaco DO Signed CBC W/DIFF, AUTOMATED Collected: 12/16/2017 Status: F Source: [place] 3:55 PM [facility] TYPE CODE TESTS RESULT OUT OF RANGE REFERENCE UNITS LAB L100.1000 4.4-11.0 K/mm3 High WBC 13.9 LAB L100.1200 4.6-6.2 M/mm3 Normal RBC 4.68 LAB L100.1300 13.0-16.5 g/dl Normal HGB 14.8 LAB L100.1400 40-54 % Normal HCT 44.9 LAB L100.1500 80-94 fL High MCV 95.9 LAB L100.1600 27.0-32.0 pg Normal MCH 31.6 LAB L100.1700 32-36 g/gl Normal MCHC 33.0 LAB L100.1810 11.6-14.6 % Normal RDW CV 14.0 LAB L100.1820 35.1-43.9 fl High RDW SD 49.3 LAB L100.1900 150-450 K/mm3 Normal PLT 384 LAB L100.2000 6.2-12.0 fl Normal MPV 10.8 LAB L100.2100 47-70 % High NEUT% 76.0 LAB L100.2200 19-41 % Low LY% 14.4 LAB L100.2300 0-10 % Normal MONO% 7.6 LAB L100.2400 0-5 % Normal EO% 1.1 LAB L100.2500 0-1 % Normal BASO% 0.3 LAB L100.2550 0.0-0.9 % Normal IM GRAN % 0.600 Result Comment: IG% - Immature Granulocytes (promyelocytes, myelocytes and metamyelocytes) > 1% indicates that a LEFT SHIFT is Present. LAB L100.2620 2.0-7.7 X10 3/uL High Absolute Neut 10.5 LAB L100.2720 0.83-4.51 X10 3/ul Normal Absolute Lymph 2.00 Performed By: #### L100.0100, L101.9900 #### [facility] [address] [place], [place], [id number] ERYTHROCYTE SED RATE Collected: 12/16/2017 Status: F Source: [place] 3:55 PM [facility] TYPE CODE TESTS RESULT OUT OF RANGE REFERENCE UNITS LAB L102.0000 0-20 mm/hr Normal SED RATE 13 Performed By: #### L100.0100, L101.9900 #### [facility] [address] [facility] [id number] HEMOGLOBIN A1C Collected: 12/16/2017 Status: F Source: [place] 3:55 PM [facility] TYPE CODE TESTS RESULT OUT OF RANGE REFERENCE UNITS LAB L501.9985 4.2-6.3 % High HGB A1C 8.6 Performed By: #### L501.9985 #### [facility] [address] [facility] [id number] COMPREHENSIVE METABOLIC Collected: 12/16/2017 Status: F Source: [place] 3:55 PM [facility] TYPE CODE TESTS RESULT OUT OF RANGE REFERENCE UNITS LAB L501.0100 74-106 mg/dL High GLU 187 Result Comment: Fasting Glucose result greater than or equal to 126 mg/dL suggests DIABETES MELLITUS per A.D.A. criteria. Please note revised GLUCOSE reference range effective 2017. LAB L501.1000 7-18 mg/dL High BUN 25 LAB L501.1100 0.70-1.30 mg/dL Normal CREAT,SERUM 0.98 Result Comment: The validity of the calculated GFR AND GFRAA in patients over 70 years has not been determined. Clinical correlation is essential. LAB L501.1110 >60 mL/min Normal EST GFR 83 Result Comment: Non- GFR Calc LAB L501.1115 >60 mL/min Normal EST GFR - AA 101 Result Comment: GFR Calc LAB L501.1300 10-20 RATIO High BUN/CRE 25.6 LAB L501.1500 6.4-8.2 g/dL T Normal PROT 7.5 LAB L501.1800 3.2-5.0 g/dL Low ALB 2.9 LAB L501.1950 2.2-4.2 g/dL High GLOB 4.6 LAB L501.2000 0.9-2.4 RATIO Low A/G 0.6 LAB L501.2200 8.5-10.1 mg/dL CA Normal 9.2 LAB L501.4100 15-37 U/L Low AST 13 LAB L501.4305 45-117 U/L Normal ALK P 114 LAB L501.4405 16-61 U/L Normal ALT 19 Result Comment: Please note revised ALT reference range effective 2017. LAB L501.4600 0.20-1.00 mg/dL Normal T BILI 0.60 LAB L501.5300 136-145 mmol/L Low NA 132 LAB L501.5600 3.5-5.1 mmol/L Normal K 4.1 LAB L501.5900 98-107 mmol/L Low CL 94 LAB L501.6100 21.0-32.0 mmol/L Normal CO2 30.0 LAB L501.6200 5-15 Normal GAP 8 Performed By: #### L500.4050, L501.9520 #### [facility] [address] [place], [address] THYROID STIM HORMONE Collected: 12/16/2017 Status: F Source: [place] (TSH) 3:55 PM [facility] TYPE CODE TESTS RESULT OUT OF RANGE REFERENCE UNITS LAB L501.9520 0.358-3.74 uIU/mL Normal TSH 3.01 Performed By: #### L500.4050, L501.9520 #### [facility] [address] [place], [address] AFP, TUMOR MARKER Collected: 12/16/2017 Status: F Source: [place] 3:55 PM [facility] Order Comment: Is Patient ? N TYPE CODE TESTS RESULT OUT OF RANGE REFERENCE UNITS LAB L3300.0700 0.0-8.3 ng/mL Normal AFP TUMOR 4.7 2253 Result Comment: [employer] and [employer] ECLIA methodology Performed at: [facility] [address] [id number] Unemployment Inspector: Delfin Cramer PhD, Phone: [phone] Performed By: #### L3300.0700 #### [facility] (refer to report for specific site) refer to report for address and phone number EMERGENCY DEPARTMENT Observed: 12/15/2017 Status: F Source: [place] SUMMARY 7:59 AM [facility] Medical Records Department [address] [place] [address] Emergency Department Summary 12/13/17 0959 MR#: [id number] Acct: [id number] Name: NAV CHAVEZ Rep #: [id number] : 1955 62 From: Michael Monaco DO PCP: Care Physician, No Primary Status: DEP ER - ER Visit Summary Date of Service: 12/13/17 Chief Complaint: Elevated blood sugar History of Present Illness: The patient is a 62 M who states that last week he was feeling poorly with symptomatology of cough myalgias and fatigue. He states over the weekend it worsened and he had to come home from work on Saturday. Today evening had nausea vomiting. Saturday he went to an urgent care had blood work and a chest x-ray performed but did not get the results and was placed on prednisone and albuterol. Patient went to a follow-up appointment today with nurse practitioner and was told his blood sugar was greater than 400 and he needed to come to the emergency department. He notes left scrotal swelling for the past several months. He denies pain with it. He notes a 25 pound weight loss over the same timeframe. He notes polyuria polydipsia. Notes constipation over the past few days. Unknown fever. Physical Examination: Blood pressure 153/97 temperature 99.2 heart rate of 84 respirations are 16 pulse ox is 95% on room air Gen: Well-nourished well-developed patient appears fatigued and frail Head: Normocephalic atraumatic Eyes: Perrl EOMI ENT: TMs clear no rhinorrhea dry mucous membranes Neck: Supple no lymphadenopathy no JVD nontender CVS: Regular rate rhythm no murmurs normal S1-S2 Respiratory: No distress clear to auscultation bilaterally chest nontender Abdomen: Soft nontender nondistended normal bowel sounds no masses : There is left scrotal swelling. It is nontender. There is no obvious inguinal hernia. Back: Nontender Extremity: Nontender no edema Skin: Normal color no rash Neuro: alert orientated 3 CN II-XII intact normal strength sensation reflexes gait cerebellar Psych: Normal affect normal mood Test Results: Count is elevated 20 point H which I suspect is partially due to prednisone. Glucose is 317. No anion gap and ketones are negative. Lactic acid 1.4. Troponin negative. EKG sinus at a rate of 71. Chest x-ray showed chronic changes and COPD. Scrotal ultrasound demonstrates a large left hydrocele. CT of the chest no acute disease. Emergency Department Course and Treatment: Repeat temp shows the patient to be afebrile. Patient will be discharged home. I did work with him to help arrange for early follow-up. I spoke with Dr. Dada Kulkarni is next on the no doc list. They have arranged to see the patient on Saturday. He has been resting comfortably. Patient will be started on metformin and Precose. He is to continue his antibiotic as an inhaler. I will add in doxycycline. He will need to also follow-up with urology. Impression: 1. COPD exacerbation 2. Type 2 diabetes mellitus 3. Left hydrocele This note was generated with Dragon dictation software. It may contain incorrect words, spelling, and punctuation that were not noted in review of the chart prior to signing ED Disposition - Plan for ED Patient: Disposition: Home or Assisted Living Chief Complaint: Hyperglycemia Instructions: ED Hyperglycemia Diabetic, ED Hydrocele Type Not Specified Prescriptions: Doxycycline 100 mg PO BID #20 cap Metformin HCl 500 mg PO BID #90 tab Acarbose [Precose] 25 mg PO TID #90 tab Referrals: Dada Kulkarni MD [STAFF PHYSICIAN] - Keep [facility] appointment Care Physician,No Primary [Primary Care Provider] - Leander Arce MD [STAFF PHYSICIAN] - (Call today to arrange urology follow-up for the hydrocele and your scrotum) What to do if you have Problems For any increased pain, shortness of breath, bleeding, nausea or vomiting, chest pain, or any unexpected problems, contact your Primary Care Provider. Call [facility] ([phone]) or report to the closest Emergency Room. Call 911 if necessary. 12/15/17 0759 <Electronically signed by Michael Monaco DO> Date Michael Monaco DO Cosigner Signature (If Indicated): Date CC: No Primary Care Physician URINALYSIS, COMPLETE Collected: 12/13/2017 Status: F Source: [place] 11:53 AM [facility] Order Comment: Order Date: 12/13/17 How was Urine Obtained? CLEAN CATCH TYPE CODE TESTS RESULT OUT OF RANGE REFERENCE UNITS LAB L400.3000 Yellow COLOR Normal Yellow LAB L400.3050 Clear Normal CLARITY Clear LAB L400.3200 Normal mg/dl High GLUCOSE, UR 1000 LAB L400.3300 Negative mg/dL Normal BILIRUBIN URINE Negative LAB L400.3400 Negative mg/dl High 5 KETONE UR LAB L400.3465 1.002-1.030 Normal SP.GR. DIPSTX 1.015 LAB L400.3550 5.0 - 8.0 pH UR Normal 6.0 LAB L400.3600 Negative mg/dl High PROT 30 DIPSTX LAB L400.3700 Normal mg/dl Normal UROBILI Normal LAB L400.3750 Negative Normal NITRITE UR Negative LAB L400.3780 Negative /ul Normal OCCULT BLOOD-UR Negative LAB L400.3800 Negative /ul LEUK Normal ESTERASE Negative LAB L400.4050 0-5 /hpf WBC 0 Normal SEEN LAB L400.4100 0-5 /hpf 0 Normal RBC-UA SEEN LAB L400.4150 0-5 /hpf SQUAM 0 Normal EPI SEEN LAB L400.4300 None Seen /hpf 0 Normal BACTERIA SEEN LAB L400.4350 <or=2+ /hpf 0 Normal MUCUS, URINE SEEN Performed By: #### L400.0001 #### [facility] [address] [place], [address] CTA CHEST W/WO Observed: 12/13/2017 Status: F Source: [place] CONTRAST 11:39 AM [facility] Imaging Services [address] [place] [address] CTA Chest W/WO Contrast MR#: [id number] Acct: [id number] Name: NAV CHAVEZ Rebecca Rep #: [id number] : 1955 M 62 From: Sajan Samuels MD PCP: Care Physician, No Primary Status: REG ER Study: CTA Chest W/WO Contrast Date of Exam: 12/13/17 Exam# [id number] Ordering Dr: Michael Monaco DO STUDY: CTA CHEST REASON FOR EXAM: Male, 62 years old. Shortness of breath. Newly diagnosed diabetes. RADIATION DOSAGE (If Supplied By Facility): CTDIvol = ( 6.75 ) mGy, DLP = ( 199.34 ) mGycm TECHNIQUE: The examination was performed with the intravenous administration of 75CC ml of Isovue 370 contrast material. Post-processing of the angiographic images was performed, with multiplanar reformation and 3D reconstruction. Individualized dose optimization techniques were used for this CT. COMPARISON: None. FINDINGS: Normal enhancement of the main pulmonary artery and right and left pulmonary arteries. Normal enhancement of the bilateral peripheral pulmonary arteries. There is no demonstrated pulmonary embolism. There is atherosclerotic calcification of the aortic arch with tortuosity. There is no demonstrated aortic dissection. There are calcifications of the coronary arteries. Normal mediastinum. Normal hilar regions. Normal visualized trachea and bronchi. Hyperinflation. Decreased bronchovascular markings suggestive of a emphysematous changes. Minimal increased markings in the posterior medial segment of the right lower lobe suggestive of scarring. Normal pleura. Normal chest wall structures. There are degenerative changes of thoracic spine. Multiple hypodense nodular masses are seen in the spleen. These are not typical cysts. Clinical correlation is recommended. CT/CTA Chest W/WO Contrast IMPRESSION: Hyperinflation and emphysematous changes. Findings suggest some mild scarring at the right lung base. Multiple hypodense nodular seen in the spleen. Clinical correlation is recommended. Electronically Signed: Sajan Samuels MD at 13:17 EST Tel [phone], Service support , CC: No Primary Care Physician; Michael Monaco DO Autom[employer] Service [employer] Mechanic: Signed CBC W/DIFF, AUTOMATED Collected: 12/13/2017 Status: F Source: [place] 10:03 AM [facility] TYPE CODE TESTS RESULT OUT OF RANGE REFERENCE UNITS LAB L100.1000 4.4-11.0 K/mm3 High WBC 20.8 LAB L100.1200 4.6-6.2 M/mm3 Normal RBC 4.68 LAB L100.1300 13.0-16.5 g/dl Normal HGB 15.0 LAB L100.1400 40-54 % Normal HCT 44.4 LAB L100.1500 80-94 fL High MCV 94.9 LAB L100.1600 27.0-32.0 pg High MCH 32.1 LAB L100.1700 32-36 g/gl Normal MCHC 33.8 LAB L100.1810 11.6-14.6 % Normal RDW CV 13.8 LAB L100.1820 35.1-43.9 fl High RDW SD 47.1 LAB L100.1900 150-450 K/mm3 Normal PLT 413 LAB L100.2000 6.2-12.0 fl Normal MPV 9.9 LAB L100.2100 47-70 % High NEUT% 87.1 LAB L100.2200 19-41 % Low LY% 6.8 LAB L100.2300 0-10 % Normal MONO% 4.7 LAB L100.2400 0-5 % Normal EO% 0.1 LAB L100.2500 0-1 % Normal BASO% 0.1 LAB L100.2550 0.0-0.9 % High IM GRAN % 1.200 Result Comment: IG% - Immature Granulocytes (promyelocytes, myelocytes and metamyelocytes) > 1% indicates that a LEFT SHIFT is Present. LAB L100.2620 2.0-7.7 X10 3/uL High Absolute Neut 18.1 LAB L100.2720 0.83-4.51 X10 3/ul Normal Absolute Lymph 1.41 LAB L100.4700 Normal REACTIVE LYMPH RARE Performed By: #### L100.0100 #### [facility] [address] [place], [address] ACETONE SERUM Collected: 12/13/2017 Status: F Source: [place] 10:03 AM [facility] TYPE CODE TESTS RESULT OUT OF RANGE REFERENCE UNITS LAB L501.6900 NEG Normal ACETONE SERUM NEGATIVE Performed By: #### L501.6900 #### [facility] [address] [place], [address] PROTHROMBIN TIME W/INR Collected: 12/13/2017 Status: F Source: [place] 10:03 AM [facility] TYPE CODE TESTS RESULT OUT OF RANGE REFERENCE UNITS LAB L300.4150 11.7-14.9 SECONDS Normal PROTIME 12.9 LAB L300.4200 Normal INR 1.0 Performed By: #### L300.3900, L300.4310 #### [facility] [address] [place], [address] PARTIAL THROMBOPLAST Collected: 12/13/2017 Status: F Source: [place] TIME 10:03 AM [facility] TYPE CODE TESTS RESULT OUT OF RANGE REFERENCE UNITS LAB L300.4310 24.1-36.2 Seconds Normal PTT 30.3 Performed By: #### L300.3900, L300.4310 #### [facility] [address] [place], [address] COMPREHENSIVE METABOLIC Collected: 12/13/2017 Status: F Source: [place] [facility] 10:03 AM [facility] Order Comment: 'TROP' Serial specimen #1, #2, #3, or #4: 1 TYPE CODE TESTS RESULT OUT OF RANGE REFERENCE UNITS LAB L501.0100 74-106 mg/dL High GLU 317 Result Comment: Glucose result greater than or equal to 200 mg/dL suggests DIABETES MELLITUS per A.D.A. criteria. Please note revised GLUCOSE reference range effective 2017. LAB L501.1000 7-18 mg/dL High BUN 22 LAB L501.1100 0.70-1.30 mg/dL Normal CREAT,SERUM 1.01 Result Comment: The validity of the calculated GFR AND GFRAA in patients over 70 years has not been determined. Clinical correlation is essential. LAB L501.1110 >60 mL/min Normal EST GFR 80 Result Comment: Non- GFR Calc LAB L501.1115 >60 mL/min Normal EST GFR - AA 97 Result Comment: GFR Calc LAB L501.1255 ml/min Normal Estimated CRCL 56.89 LAB L501.1300 10-20 RATIO High BUN/CRE 21.8 LAB L501.1500 6.4-8. g/dL Normal 2 T PROT 7.9 LAB L501.1800 3.2-5. g/dL Low 0 ALB 2.8 LAB L501.1950 2.2-4. g/dL High 2 GLOB 5.1 LAB L501.2000 0.9-2. RATIO Low 4 A/G 0.5 LAB L501.2200 8.5-10 mg/dL Normal .1 CA 9.4 LAB L501.4100 15-37 U/L Low AST 7 LAB L501.4305 45-117 U/L High ALK P 118 LAB L501.4405 16-61 U/L Normal ALT 17 Result Comment: Please note revised ALT reference range effective 2017. LAB L501.4600 0.20-1.00 mg/dL Normal T BILI 0.50 LAB L501.5300 136-145 mmol/L Low NA 133 LAB L501.5600 3.5-5.1 mmol/L Normal K 4.2 LAB L501.5900 98-107 mmol/L Low CL 94 LAB L501.6100 21.0-32.0 mmol/L Normal CO2 32.0 LAB L501.6200 5-15 Normal GAP 7 Performed By: #### L500.4050, L501.2450, L501.4010, L501.5200 #### [facility] [address] [place], [place], [address] LIPASE Collected: 12/13/2017 Status: F Source: [place] 10:03 [facility] Order Comment: 'TROP' Serial specimen #1, #2, #3, or #4: 1 TYPE CODE TESTS RESULT OUT OF RANGE REFERENCE UNITS LAB L501.2450 73-393 U/L Normal LIPASE 329 Performed By: #### L500.4050, L501.2450, L501.4010, L501.5200 #### [facility] [address] [place], [place], [id number] TROPONIN-I Collected: 12/13/2017 Status: F Source: [place] 10:03 [facility] Order Comment: 'TROP' Serial specimen #1, #2, #3, or #4: 1 TYPE CODE TESTS RESULT OUT OF RANGE REFERENCE UNITS LAB L501.4010 <0.06 ng/mL Normal < 0.02 TROPONIN-I Result Comment: TROPONIN-I EXPECTED VALUES <0.05 NEGATIVE 0.06 - 0.59 AT RISK OF DC > OR = 0.60 SUGGEST DC Performed By: #### L500.4050, L501.2450, L501.4010, L501.5200 #### [facility] [address] [place], [place], [id number] MAGNESIUM Collected: 12/13/2017 Status: F Source: [place] 10:03 AM [facility] Order Comment: 'TROP' Serial specimen #1, #2, #3, or #4: 1 TYPE CODE TESTS RESULT OUT OF RANGE REFERENCE UNITS LAB L501.5200 1.6-2.6 mg/dL Normal MG 2.0 Result Comment: Please note revised Magnesium reference range effective 2017. Performed By: #### L500.4050, L501.2450, L501.4010, L501.5200 #### [facility] [address] [place], [address] LACTIC ACID Collected: 12/13/2017 Status: F Source: [place] 10:03 AM [facility] Order Comment: Yes/No query for Sepsis Lactate Rule Y TYPE CODE TESTS RESULT OUT OF RANGE REFERENCE UNITS LAB L503.6005 0.4-2.0 mmol/L Normal LACTIC ACID 1.4 Performed By: #### L503.6005 #### [facility] [address] [place], [address] Observed: 12/13/2017 Status: F Source: [place] INFLUENZA A+B (RAPID 9:52 AM [facility] REPOSITORY Order Date: 12/13/17 FLU A/B Rapid Negative test results should be confirmed by culture. Order Rapid Viral Culture for Influenzae A+B ([id number]) if clinically indicated. Influenza Ag, Direct Presumptive NEGATIVE for Influenza A/B Antigen (See Note) Performed By: #### M101.0101 #### [facility] [address] [place], [address] CHEST PA AND LATERAL Observed: 12/13/2017 Status: F Source: [place] 9:51 AM [facility] Imaging Services [address] [place] [address] Chest PA and Lateral MR#: [id number] Acct: [id number] Name: NAV CHAVEZ Rep #: [id number] : 1955 M 62 From: Sajan Samuels MD PCP: Care Physician, No Primary Status: REG ER Study: Chest PA and Lateral Date of Exam: 12/13/17 Exam# [id number] Ordering Dr: Michael Monaco DO STUDY: X-RAY CHEST REASON FOR EXAM: Male, 62 years old. Cough and tachycardia. TECHNIQUE: PA and lateral views of the chest. COMPARISON: None. FINDINGS: EKG electrodes are seen. Hyperinflation. Decreased bilateral bronchovascular markings suggestive of emphysematous changes. There is no demonstrated pleural abnormality. Normal size heart. Normal mediastinum and dennis. Normal visualized pulmonary arteries. Normal visualized aortic arch and descending thoracic aorta. There are degenerative changes of the visualized thoracic spine. Healed left rib fractures. There is no demonstrated abnormality of the visualized soft tissue structures of the upper abdomen. RAD/Chest PA and Lateral IMPRESSION: Hyperinflation. No acute infiltrate is seen. Electronically Signed: Sajan Samuels MD at 10:44 EST Tel [phone], Service support , CC: No Primary Care Physician; Michael Monaco DO Autom[employer] Service [employer] Mechanic: Signed TESTICULAR WITH Observed: 12/13/2017 Status: F Source: [place] ARTERIAL FLOW 9:51 AM [facility] Imaging Services [address] [place] [address] Testicular with Arterial Flow MR#: [id number] Acct: [id number] Name: NAV CHAVEZ Rep #: [id number] : 1955 M 62 From: Sajan Samuels MD PCP: Care Physician, No Primary Status: REG ER Study: Testicular with Arterial Flow Date of Exam: 12/13/17 Exam# [id number] Ordering Dr: Michael Monaco DO STUDY: SCROTUM ULTRASOUND REASON FOR EXAM: Male, 62 years old. Swelling in the left testicle. TECHNIQUE: Ultrasound evaluation of the scrotum was performed with color Doppler and static williamson-scale imaging. COMPARISON: None. FINDINGS: RIGHT TESTICLE INTRATESTICULAR: There is a normal size of the right testicle. The right testicle measures 4.7 cm x 2.7 cm x 2.2 cm. There is a homogenous echotexture. There is normal arterial and normal venous vascularity. There is no demonstrated right testicular mass or cyst. EXTRATESTICULAR: The epididymis is normal in size. The epididymis head measures 0.8 cm x 1.0 cm x 0.7 cm. There is normal vascularity of the epididymis. There is no demonstrated epididymal cystic structure. There is no demonstrated hydrocele. There is no demonstrated varicocele. There is no demonstrated extratesticular mass or cyst. LEFT TESTICLE INTRATESTICULAR: There is a normal size of the left testicle. The left testicle measures 5.3 cm x 2.7 cm x 2.0 cm. There is a homogenous echotexture. There is normal arterial and normal venous vascularity. There is no demonstrated left testicular mass or cyst. EXTRATESTICULAR: The epididymis is normal in size. The epididymis head measures 1.1 cm. There is normal vascularity of the epididymis. There is a well-defined cystic structure within the epididymis, without internal echoes, consistent with an epididymal cyst. This measures 1.1 cm x 1 cm x 0.7 cm. There is a large hydrocele. There is no demonstrated varicocele. There is no demonstrated extratesticular mass or cyst. US/Testicular with Arterial Flow IMPRESSION: Large left hydrocele. Small cysts in the left epididymis. Electronically Signed: Sajan Samuels MD at 11:32 EST Tel [phone], Service support , CC: No Primary Care Physician; Michael Monaco DO [employer] Service [employer] Mechanic: Signed CBC AND DIFFERENTIAL Collected: 12/12/2017 Status: F Source: [place] 8:52 AM [facility] REPOSITORY TYPE CODE TESTS RESULT OUT OF REFERENCE UNITS RANGE LAB WBC 3.70-11.00 k/uL WBC 21.41 High LAB RBC 4.20-6.00 m/uL RBC 4.80 LAB HGB 13.0-17.0 g/dL Hemoglobin 15.2 LAB HCT 39.0-51.0 % Hematocrit 47.5 LAB MCV 80.0-100.0 fL MCV 99.0 LAB MCH 26.0-34.0 pG MCH 31.7 LAB MCHC 30.5-36.0 g/dL MCHC 32.0 LAB RDWCV 11.5-15.0 % RDW-CV 13.4 LAB PLTCT 150-400 k/uL Platelet Count 451 High LAB MPV 9.0-12.7 fL MPV 10.5 LAB ANEUT % Neut% 82.6 LAB AANEUT 1.45-7.50 k/uL Abs Neut 17.68 High LAB ALYMP % Lymph% 6.4 LAB AALYMP 1.00-4.00 k/uL Abs Lymph 1.37 LAB AMONO % Rock% 11.0 LAB AAMONO <0.87 k/uL Abs Rock 2.36 High LAB AEOS % Eosin% 0.0 LAB AAEOS <0.46 k/uL Abs Eosin 0.00 LAB ABASO % Baso% 0.0 LAB AABASO <0.11 k/uL Abs Baso 0.00 LAB POLIMI Polychromasia Slight LAB HSGIMI Hypersegmented PMNs Occasional LAB RBCMOR Red Cell Morph SEE COMMENT Result Comment: Unremarkable LAB PLTEST Platelet Platelet Estimate estimate increased LAB DTYP DTYPE Manual Diff Performed By: #### CBCDIF, CMP #### [facility] [address] [place] [address] COMP METABOLIC PANEL Collected: 12/12/2017 Status: F Source: [place] 8:52 AM [facility] REPOSITORY TYPE CODE TESTS RESULT OUT OF REFERENCE UNITS RANGE LAB TP 6.3-8.0 g/dL Protein, Total 7.6 LAB ALB 3.9-4.9 g/dL Low Albumin 3.3 LAB CA 8.5-10.2 mg/dL Calcium, Total 9.9 LAB TBIL 0.2-1.3 mg/dL Bilirubin, Total 0.3 LAB ALKP 36-108 U/L Alkaline High Phosphatase 116 LAB AST 14-40 U/L AST 14 LAB GLU 74-99 mg/dL Glucose High 405 Result Comment: The [place] Diabetes Association (ADA) provides guidance for cutoff values for fasting glucose and random glucose. The ADA defines fasting as no caloric intake for at least 8 hours. Fas ting plasma glucose results between 100 to 125 mg/dL indicate increased risk for diabetes (prediabetes). Fasting plasma glucose results greater than or equal to 126 mg/dL meet the criteria for diagnosis of diabetes. In the absence of unequivocal hyperglycemia, results should be confirmed by repeat testing. In a patient with classic symptoms of hyperglycemia or hyperglycemic crisis, random plasma glucose results greater than or equal to 200 mg/dL meet the criteria for diagnosis of diabetes. Reference: Standards of Medical Care in Diabetes 2016, [place] [employer] Association. Diabetes Care. 2016.39(Suppl 1). LAB BUN 9-24 mg/dL BUN 14 LAB CRET 0.73-1.22 mg/dL Creatinine 0.96 LAB NA 136-144 mmol/L Low Sodium 131 LAB K 3.7-5.1 mmol/L Potassium 4.4 LAB CL 97-105 mmol/L Low Chloride 90 LAB CO2 22-30 mmol/L CO2 High 31 LAB AGAP 9-18 mmol/L Anion Gap 10 LAB ALT 10-54 U/L ALT 14 LAB GFRAA eGFR- Amer. >60 LAB GFRNAA . eGFR-All Other Races >60 Result Comment: eGFR (Estimated GFR) Units of measure: mL/min/1.73 meters squared eGFR is derived from the reexpressed MDRD Study equation using the following parameters: serum creatinine, age, gender and race. The creatinine assay has been calibrated to be traceable to IDMS. An eGFR <60 mL/min/1.73m2 for >3 months is consistent with chronic kidney disease. Refer to KDOQI guidelines for clinical interpretation. In patients with unstable renal function, e.g. those with acute kidney injury, the eGFR may not accurately reflect actual GFR. Performed By: #### CBCDIF, CMP #### [facility] [address] [place], [place] [address] XR CHEST 2V FRONTAL/LAT Observed: 12/10/2017 Status: F Source: [place] 5:50 PM [facility] REPOSITORY * * *Final Report* * * DATE OF EXAM: Dec 10 2017 5:50PM WOX [id number] - XR CHEST 2V FRONTAL/LAT / PROCEDURE REASON: multiple diagnoses * * * * Physician Interpretation * * * * EXAMINATION: CHEST RADIOGRAPH (2 VIEW FRONTAL and LATERAL) Clinical History: Cough Nicotine dependence, unspecified, uncomplicated MQ: XC2_4 Comparison: None. RESULT: Lines, tubes, and devices: None. Lungs and pleura: The lungs are overexpanded. No consolidation. No lung mass. No pleural effusion. Cardiomediastinal silhouette: Normal cardiomediastinal silhouette. Other: None. IMPRESSION: No acute radiographic abnormality. Automobile Service Station Mechanic: PSCB Transcribe Date/Time: Dec 10 2017 6:02P Dictated by : KAMARI DALAL MD This examination was interpreted and the report reviewed and electronically signed by: KAMARI DALAL MD on Dec 10 2017 6:03PM EST [id number] Observed: 12/10/2017 Status: COMPLETED Source: [place] 5:43 PM [facility] REPOSITORY HNO ID: [id number] Author: Zee Rodriguez (Rt) Service: (none) Author Type: Power Transformer Assembler Type: Progress Notes Filed: 12/10/2017 5:47 PM Note Text: Radiology Service Progress Note PATIENT NAME: NAV Chavez DATE OF SERVICE: December 10, 2017 TIME: 5:43 PM PATIENT IDENTITY VERIFICATION COMPLETED USING TWO (2) METHODS: Patient confirmed name verbally and Date of . PATIENT GENDER DATA: Male PATIENT RELEVANT IMPLANT DATA REVIEWED: Not Applicable RADIOLOGY DEPARTMENT: General X-ray: Exam(s) Completed: Chest X-Ray PERIPHERAL IV DATA: Not applicable SIGNED BY: RT Jennifer December 10, 2017 5:43 PM PROGRESS Observed: 12/10/2017 Status: COMPLETED Source: [place] 5:12 PM [facility] RE[facility] HNO ID: [id number] Author: Joe Gandara Service: (none) Author Type: Nurse Practitioner Type: Progress Notes Filed: 12/10/2017 8:50 PM Note Text: Subjective HPI Patient is a 62 year old male here today for a 7 day history of stomach discomfort, decreased appetite. States vomit x2 one night ago. Denies diarrhea. Denies. States body aches cough and congestion. + smoker. OTC medications (NyQuil and DayQuil) with some relief. States his stomach is painful denies nausea. Nothing makes it better or worse. No other concerns at this time. Patient does not currently have a PCP states I Never get sick. Review of Systems Constitutional: Positive for chills and malaise/fatigue. Negative for fever. HENT: Negative for congestion, ear pain and sore throat. Respiratory: Positive for cough and sputum production. Negative for shortness of breath and wheezing. Cardiovascular: Negative. Gastrointestinal: Positive for abdominal pain and vomiting. Negative for diarrhea and nausea. Musculoskeletal: Negative for myalgias. Neurological: Negative for headaches. All other systems reviewed and are negative. No past medical history on file. No past surgical history on file. ALLERGIES Review of patient's allergies indicates no known allergies. MEDICATIONS No prescriptions on file. No family history on file. Social History Substance Use Topics - Smoking status: Current Every Day Smoker - Smokeless tobacco: Never Used - Alcohol use Not on file BP 124/80 Pulse 86 Temp 36.9 ?C (98.5 ?F) (Tympanic) Resp 16 Wt 54.4 kg (120 lb) SpO2 95% Objective Physical Exam Constitutional: He is oriented to person, place, and time and well-developed, well-nourished, and in no distress. Vital signs are normal. He appears not lethargic and not dehydrated. He appears unhealthy. He has a sickly appearance. No distress. Mildly ill. HENT: Head: Normocephalic and atraumatic. Right Ear: Tympanic membrane, external ear and ear canal normal. Left Ear: Tympanic membrane, external ear and ear canal normal. Nose: No mucosal edema or rhinorrhea. Right sinus exhibits no maxillary sinus tenderness and no frontal sinus tenderness. Left sinus exhibits no maxillary sinus tenderness and no frontal sinus tenderness. Mouth/Throat: Uvula is midline, oropharynx is clear and moist and mucous membranes are normal. Neck: Neck supple. Cardiovascular: Normal rate, regular rhythm and normal heart sounds. Pulmonary/Chest: He has wheezes. Bilateral wheezes noted through out. diminished Air exchange noted at the bases. SpO2 95 %. Albuterol nebulizer treatment given. SpO2 96% with Improved air exchange. Abdominal: Soft. Normal appearance, normal aorta and bowel sounds are normal. There is no hepatosplenomegaly. There is no tenderness. There is no rebound and no CVA tenderness. Lymphadenopathy: Head (right side): No submental, no submandibular and no tonsillar adenopathy present. Head (left side): No submental, no submandibular and no tonsillar adenopathy present. He has no cervical adenopathy. Neurological: He is oriented to person, place, and time. He appears not lethargic. Skin: Skin is warm and dry. He is not diaphoretic. Nursing note and vitals reviewed. ASSESSMENT/PLAN: 1. Viral URI with cough - ICD9: 465.9, ICD10: J06.9, B97.89 (primary diagnosis) - XR negative per radiology read (Kamari Dalal MD) - Discussed viral etiology and rationale for treatment. - Symptomatic treatment with prn analgesia - Supportive care with fluids and rest - The patient may also use OTC cough and cold meds as needed. - Follow up in 3-5 days if symptoms persist or sooner if worsening of symptoms - PREDNISONE 20 MG TABLET - GUAIFENESIN ER 600 MG TABLET, EXTENDED RELEASE 12 HR - ALBUTEROL SULFATE HFA 90 MCG/ACTUATION AEROSOL INHALER 2. Cough - ICD9: 786.2, ICD10: R05 - ALBUTEROL SULFATE CONCENTRATE 5 MG/ML(0.5 %) SOLUTION FOR NEBULIZATION - XR CHEST 2V FRONTAL/LAT 3. Nausea and vomiting, intractability of vomiting not specified, unspecified vomiting type - ICD9: 787.01, ICD10: R11.2 - CBC + DIFF - COMP METABOLIC PANEL - REFER TO FAMILY MEDICINE 4. Smoker - ICD9: 305.1, ICD10: F17.200 - XR CHEST 2V FRONTAL/LAT - REFER TO FAMILY MEDICINE Prescription instructions reviewed with patient as applicable. Patient advised if symptoms do not improve or if symptoms worsen sooner, to contact their primary care physician. Potential red flag symptoms discussed with the patient. Reviewed appropriate action plan to take if red flag symptoms occur. Patient agreeable to treatment plan. Joe Gandara CNP CNCO Observed: 12/10/2017 Status: COMPLETED Source: [place] 12:00 AM [facility] REPOSITORY Letter Text [place] [facility] Juliocesar Rao CNP [address] [place], [place] [address] 12/10/2017 TO WHOM IT MAY CONCERN: This is to confirm that NAV Chavez had an appointment and was seen at the [facility] in the Department of Urgent Care by Juliocesar Rao CNP on 12/10/2017 and may return to work on 12/12/2017. Sincerely yours, Juliocesar Rao CNP ALLERGIES ALLERGIES DATE TYPE / CODE NAME / CODE REACTION SEVERITY SOURCE 10/15/2018 Drug No Known Unknown [facility] Allergy/416 Allergies/L70304 Hospital 061026(SNOM 0388(RXNORM) Repository ED CT) Drug NO KNOWN [facility] Class/00811 ALLERGIES [place] 1003(SNOMED Repository CT) ENCOUNTERS ENCOUNTERS ADMIT/DISCHARGE ACCOUNT ADMITTING ENCOUNTER LOCATION SOURCE NUMBER CLASS 10/15/2018/10/15/20 [id number] Emergency [address] ing:ED Repository 10/09/2018/10/10/20 [id number] Kim Ray Inpatient [address] Encounter [facility] ing:GK2Znvx: Repository VP975Ywi: 1 10/09/2018 [id number] Kim Ray Ambulatory BMSBuilding:B [place] Repository 10/07/2018 [id number] Kim Ray Ambulatory BMSBuilding:B [place] Repository 10/07/2018 [id number] Kim Ray Ambulatory BMSBuilding:B [place] Repository 10/07/2018 [id number] Kim Ray Ambulatory BMSBuilding:B [place] Repository 04/30/2018 [id number] Ambulatory [facility] ing:DC Repository 03/31/2018/04/19/20 [id number] Ambulatory [address] ing:DC Repository 02/20/2018/02/21/20 [id number] Ambulatory [address] ing:NS Repository 02/06/2018/02/08/20 [id number] Ambulatory [address] Repository 01/31/2018/02/01/20 [id number] Ambulatory [address] ing:SDCRoom: Repository AC01 01/28/2018/01/29/20 [id number] Ambulatory Lex Lex [facility] Hospital ing:EN Repository 01/21/2018/02/18/20 [id number] Ambulatory [place] Lex [address] [place] [address] Hospital ing:DC Repository 01/10/2018 [id number] Ambulatory Lex [facility] Hospital ing:MTLAB Repository 01/06/2018 [id number] [facility] [place] [facility] Repository 01/02/2018/01/19/20 [id number] Ambulatory Lex Lex [address] [place] [address] [facility] Repository 01/01/2018/01/04/20 [id number] Ambulatory [address] Repository 12/30/2017/12/31/19 [id number] Emergency [place] Hospital ing:ED Repository 12/24/2017 [id number] [facility] [place] [facility]MTLAB Repository 12/23/2017 [id number] [facility] Repository 12/16/2017 [id number] Ambulatory Lex [facility] Hospital ing:MTLAB Repository 12/13/2017/12/13/19 [id number] Emergency [place] Hospital ing:ED Repository 12/13/2017/12/13/19 [id number] Ambulatory [address] Repository 12/12/2017/12/12/19 [id number] Ambulatory [address] Repository 12/10/2017/12/10/19 [id number] Ambulatory [address] Repository 12/10/2017/12/10/19 [id number] Ambulatory [address] Repository PAYERS PAYERS ENCOUNTER GUARANTOR PAYER SUBSCRIBER SOURCE 10/15/2018 NAV RAY Primary NAV RAY [place] [id number] [place] Insurance:MEDICAL HOLTDOB: [address] [id number] [address]Ajr: Number: Repository [id number] (HP) Date:1210-51-57OU [address] [place] [address]DK: 10/15/2018 Secondary NOT GIVENUNK [place] Insurance:SELF PAY [facility] Number: Effective Repository Date:2018-10-15 10/09/2018 NAV R Primary NAV R [place] [id number] SANCHEZ Insurance:MEDICAL HOLTDOB: [facility] CTAPT [address] [place], [place] [id number] [id number]: Number: Repository [id number] (HP) Date:6200-62-52NM [place] [phone]: 10/09/2018 Secondary NOT GIVENUNK Lex Insurance:SELF PAY [facility] Number: Effective Repository Date:2018-10-07 10/09/2018 NAV RAY Primary NAV RAY [place] [id number] [place] Insurance:MEDICAL HOLTDOB: [facility] CTAPT [address] [place] [address] [id number] [place] [id number]: Number: Repository [id number] (HP) Date:5094-85-36YD [place] [phone]: 10/09/2018 Secondary NOT GIVENUNK [place] Insurance:SELF PAY [facility] Number: Effective Repository Date:2018-10-09 10/07/2018 NAV R Primary NAV R [place] [id number] [place]HEZ Insurance:MEDICAL HOLTDOB: [facility] [address]APT [address]WO[place] [id number] [address]Mck: Number: Repository [id number] (HP) Date:7633-65-95RF [address] [phone]: 10/07/2018 Secondary NOT GIVENUNK [place] Insurance:SELF PAY [facility] Number: Effective Repository Date:2018-10-07 10/07/2018 NAV R Primary NAV R [place] [id number] [place] Insurance:MEDICAL HOLTDOB: [facility] CTAPT [address] [place] [address] [id number] [facility] Center [address]Ghv: Number: Repository [id number] (HP) Date:8249-52-75KO [place] [phone]: 10/07/2018 Secondary NOT GIVENUNK Lex Insurance:SELF PAY [facility] Number: Effective Repository Date:2018-10-07 10/07/2018 NAV R Primary NAV R Lex [id number] [place] Insurance:MEDICAL HOLTDOB: [address] [id number] Health Center [address]Gcg: Number: Repository [id number] (HP) Date:5481-39-68KU [place] [phone]: 10/07/2018 Secondary NOT GIVENUNK [place] Insurance:SELF PAY [facility] Number: Effective Repository Date:2018-10-07 04/30/2018 NAV R Primary NAV R Lex [id number] [place] Insurance:MEDICAL HOLTDOB: [facility] [id number] [place] [id number]: (330) Number: Repository [phone] (HP) [id number] Date:8810-30-27JJ [place] [phone]: 04/30/2018 Secondary NOT GIVENUNK Lex Insurance:SELF PAY [facility] Number: Effective Repository Date:2018-04-20 03/31/2018 NAV R Primary NAV R Lex [id number] [place] Insurance:MEDICAL HOLTDOB: [facility] [address] [id number] Hospital [address]Pnk: (330) Number: Repository [phone] (HP) [id number] Date:2388-42-92NH [place] [phone]: 03/31/2018 Secondary NOT GIVENUNK [place] Insurance:SELF PAY [facility] Number: Effective Repository Date:2018-03-21 02/20/2018 NAV R Primary NAV R [place] [id number] [place]ANCHE[place] Insurance:MEDICAL HOLTDOB: [facility] CT#3[facility] [id number] Hospital [address]Pba: (330) Number: Repository [phone] () [id number] Date:2605-67-83MR [address] [place], [place] [phone]: 02/20/2018 Secondary NOT GIVENUNK Lex Insurance:SELF PAY [facility] Number: Effective Repository Date:2018-02-18 01/31/2018 NAV R Primary NAV R Lex [id number] [place] Insurance:MEDICAL HOLTDOB: [facility] [id number] Hospital 85365Ozz: (330) Number: Repository [phone] () [id number] Date:6880-51-02HZ [address] [place] [phone]: 01/31/2018 Secondary NOT GIVENUNK [place] Insurance:SELF PAY [facility] Number: Effective Repository Date:2018-01-08 01/28/2018 NAV R Primary NAV R [place] [id number] [place] Insurance:MEDICAL HOLTDOB: [facility] CT#3[facility] [id number] Hospital [address]Dky: (330) Number: Repository [phone] () [id number] Date:1251-93-96BM [address] [place] [address]LN: 01/28/2018 Secondary NOT GIVENUNK [place] Insurance:SELF PAY [facility] Number: Effective Repository Date:2018-01-27 01/21/2018 NAV R Primary NAV R [place] [id number] [place] Insurance:MEDICAL HOLTDOB: [facility] CT[facility] [id number] Hospital [address]Hlv: (330) Number: Repository [phone] () [id number] Date:0884-44-44LB [address] [place] [address]YJ: 01/21/2018 Secondary NOT GIVENUNK [place] Insurance:SELF PAY [facility] Number: Effective Repository Date:2018-01-19 01/10/2018 NAV R Primary NAV R Lex [id number] [place] Insurance:MEDICAL HOLTDOB: [facility] [id number] [place] [id number]: (330) Number: Repository [phone] () [id number] Date:4702-00-42GA [address] [place] [address]QN: 01/10/2018 Secondary NOT GIVENUNK Lex Insurance:SELF PAY [facility] Number: Effective Repository Date:2018-01-10 01/06/2018 NAV R Primary NAV R [place] [id number] [place] Insurance:MEDICAL HOLTDOB: [facility] [id number] Hospital [address]Hix: (330) Number: Repository [phone] () [id number] Date:9341-67-42RS [address] [phone]: 01/06/2018 Secondary NOT GIVENUNK [place] Insurance:SELF PAY [facility] Number: Effective Repository Date:2018-01-03 01/02/2018 NAV R Primary NAV R [place] [id number] [place] Insurance:MEDICAL HOLTDOB: [facility] [id number] Hospital [address]Hnj: (330) Number: Repository [phone] () [id number] Date:6944-49-35MQ [address] [place] [phone]: 01/02/2018 Secondary NOT GIVENUNK Lex Insurance:SELF PAY [facility] Number: Effective Repository Date:2017-12-31 12/30/2017 NAV R Primary NAV R [place] [id number] [place] Insurance:MEDICAL HOLTDOB: [facility] [address] [id number] Hospital [address]Lcd: (330) Number: Repository [phone] () [id number] Date:9234-98-78SF [place] [phone]: 12/30/2017 Secondary NOT GIVENUNK Lex Insurance:SELF PAY [facility] Number: Effective Repository Date:2017-12-30 12/24/2017 NAV R Primary NAV R [place] [id number] [place] Insurance:MEDICAL HOLTDOB: [facility] [address] [id number] Hospital [address]Zyi: (330) Number: Repository [phone] () [id number] Date:7449-68-15DLDarrell [place] [phone]: 12/24/2017 Secondary NOT GIVENUNK [place] Insurance:SELF PAY [facility] Number: Effective Repository Date:2017-12-24 12/23/2017 NAV R Primary NAV R [place] [id number] [place] Insurance:MEDICAL HOLTDOB: [facility] [address]3W[facility]CH[facility]TEAsp[facility] [id number] Hospital [address]Ewy: (330) Number: Repository [phone] () [id number] Date:2654-04-35MNDarrell [place] [phone]: 12/23/2017 Secondary NOT GIVENUNK [place] Insurance:SELF PAY [facility] Number: Effective Repository Date:2017-12-23 12/16/2017 NAV R Primary NAV R [place] [id number] [place] Insurance:MEDICAL HOLTDOB: [facility] [address] [id number] Hospital [address]28[address]Wrf: (330) Number: Repository [phone] () [id number] Date:8006-44-86BV [address] [place] [address]NG: 12/16/2017 Secondary NOT GIVENUNK [place] Insurance:SELF PAY [facility] Number: Effective Repository Date:2017-12-16 12/13/2017 NAV R Primary NAV R [place] [id number] [facility] Insurance:MEDICAL HOLTDOB: [facility] [id number] Hospital [address]Pbn: (330) Number: Repository [phone] () [id number] Date:7062-21-47QB [address] [place] [address]SI: 12/13/2017 Secondary NOT GIVENUNK [place] Insurance:SELF PAY [facility] Number: Effective Repository Date:2017-12-13
== END 2018-10-10 12:27 | disposition home or self-care (01) | DRG 392 ==
LOC: ED 20:44 → MS2 22:44
PROVIDERS: Anesthesiology; Surgery; Admitting Provider Student in an Organized Health Care Education/Training Program; Emergency Provider Emergency Medicine; Family Provider Family Medicine; PCP Family Medicine; Visit Provider Internal Medicine
PROC: 0DJ08ZZ Inspection of Upper Intestinal Tract, Via Natural or Artificial Opening Endoscopic (ICD-10-PCS; CPT 43235; principal; 2018-10-09 12:40)
DX: R10.9 Unspecified abdominal pain (principal); Z68.1 Body mass index [BMI] 19.9 or less, adult; T78.3XXA Angioneurotic edema, initial encounter; J44.9 Chronic obstructive pulmonary disease, unspecified; E11.9 Type 2 diabetes mellitus without complications; Z79.84 Long term (current) use of oral hypoglycemic drugs; F17.210 Nicotine dependence, cigarettes, uncomplicated; R94.8 Abnormal results of function studies of other organs and systems; R63.4 Abnormal weight loss; Z91.013 Allergy to seafood
CPT/HCPCS: 36415; 71046; 74177; 80048; 80053; 80076; 81001; 82962; 83036; 83690; 83735; 84100; 84443; 85025; 85730; 86003; 86160; 86161; 88305; 88313; 88341; 88342; 93005; 96361; 96374; 96375; 97802; 99283; 99284; 99406; J7030; J7040; Q9967; A4216; J0744; J2405

== ENCOUNTER 2018-10-15 16:01 | Emergency (ER) | payer OTHER, SELFPAY ==
[2018-10-15 16:01] VITALS: BP 125/72; PULSE 115; RESP 18; TEMP 36.3; O2SAT 90; BMI 16.9
--- NOTE | 2018-10-15 16:49 | ED.VISSUMM ---
- ER Visit Summary Date of Service: 10/15/18 Chief Complaint: Bilateral lower quadrant abdominal pain History of Present Illness: The patient is a 63 M history of noncemented diabetes and COPD. Admitted to the hospital last week for several days before diagnosed with enteritis. Prior hernia repair but no other abdominal surgeries no recent abdominal surgeries. He did have upper endoscopy while in the hospital. Patient states the pain is in bilateral lower quadrants. No fever. No vomiting or diarrhea. No melena. No dysuria. Also states he has a large skin mass on his right deltoid under for 2 months I explained this will need a pyrotechnics press tender follow-up. And also has lumps diffusely on his skin is been new 2 weeks. Physical Examination: Vital signs are stable. Afebrile. No distress. HEENT atraumatic. Dry mucous membranes. Neck nontender no lymphadenopathy. Lungs clear breath coarse breath sounds but no rales, rhonchi or wheezing. Heart tachycardic rate about 50 no murmur. Chest wall nontender. Abdomen soft nondistended normal bowel sounds no peritoneal signs. Both lower quadrants but there is no reproducible abdominal tenderness. No hernias or masses. Nondistended. No obstruction. Extremities moving all 4. Neurovascular intact. Calves are nontender without edema. Neurologically is awake alert with no focal motor deficits. Back nontender. Skin has a very large mass on the right upper deltoid area but very well could be a skin cancer. Is been there for 2 months. It is multicolored. Patient also has raised areas on his skin diffusely on his back and chest. Test Results: CBC White count of to help with 17,000. Afebrile his white count is elevated due to the steroids and has been started on. Also his blood sugar is elevated for the same reason. He has to hold his metformin do the CT with contrast. He will be given a dose of subcu insulin here prior to discharge. Hemoglobin 14. No bands. Electrolytes sodium 130. Previously was 133. Gap of 8. Glucose 388. BUN of [address]A [address] abdomen pelvis with IV contrast showed improved enteritis. Small ascites. And biliary duct dilatation all seen previously. The enteritis was actually much improved from the most recent CT. Emergency Department Course and Treatment: Morphine and Zofran for pain and nausea. A liter of fluid.On repeat exam patient is doing well. We discussed all his test results. They are comfortable being discharged home. He knows he needs close follow-up with a pyrotechnics press tender for the right arm mass that could be a malignancy. Also subcu insulin for his hyperglycemia. Treatment Plan: Discharge home. Follow-up with pyrotechnics press tender. Disposition: Discharge Impression: Acute abdominal pain secondary to enteritis Right upper arm skin mass rule out malignancy Acute hyperglycemia with a history of [id number] diabetes This note was generated with [employer] dictation software. It may contain incorrect words, spelling, and punctuation that were not noted in review of the chart prior to signing ED Disposition - Plan for ED Patient: Chief Complaint: Abd Pain Referrals: Dada Kulkarni MD [Primary Care Provider] -
--- NOTE | 2018-10-15 16:54 | ED.DCSUM_ITS ---
- ER Visit Summary Date of Service: 10/15/18 Chief Complaint: Bilateral lower quadrant abdominal pain History of Present Illness: The patient is a 63 M history of noncemented diabetes and COPD. Admitted to the hospital last week for several days before diagnosed with enteritis. Prior hernia repair but no other abdominal surgeries no recent abdominal surgeries. He did have upper endoscopy while in the hospital. Patient states the pain is in bilateral lower quadrants. No fever. No vomiting or diarrhea. No melena. No dysuria. Also states he has a large skin mass on his right deltoid under for 2 months I explained this will need a agriculture specialist follow-up. And also has lumps diffusely on his skin is been new 2 weeks. Physical Examination: Vital signs are stable. Afebrile. No distress. HEENT atraumatic. Dry mucous membranes. Neck nontender no lymphadenopathy. Lungs clear breath coarse breath sounds but no rales, rhonchi or wheezing. Heart tachycardic rate about 50 no murmur. Chest wall nontender. Abdomen soft nondistended normal bowel sounds no peritoneal signs. Both lower quadrants but there is no reproducible abdominal tenderness. No hernias or masses. Nondistended. No obstruction. Extremities moving all 4. Neurovascular intact. Calves are nontender without edema. Neurologically is awake alert with no focal motor deficits. Back nontender. Skin has a very large mass on the right upper deltoid area but very well could be a skin cancer. Is been there for 2 months. It is multicolored. Patient also has raised areas on his skin diffusely on his back and chest. Test Results: CBC White count of to help with 17,000. Afebrile his white count is elevated due to the steroids and has been started on. Also his blood sugar is elevated for the same reason. He has to hold his metformin do the CT with contrast. He will be given a dose of subcu insulin here prior to discharge. Hemoglobin 14. No bands. Electrolytes sodium 130. Previously was 133. Gap of 8. Glucose 388. BUN of [address]A [address] abdomen pelvis with IV contrast showed improved enteritis. Small ascites. And biliary duct dilatation all seen previously. The enteritis was actually much improved from the most recent CT. Emergency Department Course and Treatment: Morphine and Zofran for pain and nausea. A liter of fluid.On repeat exam patient is doing well. We discussed all his test results. They are comfortable being discharged home. He knows he needs close follow-up with a agriculture specialist for the right arm mass that could be a malignancy. Also subcu insulin for his hyperglycemia. Treatment Plan: Discharge home. Follow-up with agriculture specialist. Disposition: Discharge Impression: Acute abdominal pain secondary to enteritis Right upper arm skin mass rule out malignancy Acute hyperglycemia with a history of [id number] diabetes This note was generated with [employer] dictation software. It may contain incorrect words, spelling, and punctuation that were not noted in review of the chart prior to signing ED Disposition - Plan for ED Patient: Chief Complaint: Abd Pain Referrals: Dada Kulkarni MD [Primary Care Provider] -
[2018-10-15] MEDS: Morphine 4 MG/ML Syringe IV (17:07)
[2018-10-15] MEDS: Ondansetron 4 MG/2 ML Vial IV (17:07)
[2018-10-15] MEDS: 0.9% Normal Saline 1,000 ML 1000 ML IV (17:07)
[2018-10-15 17:32] LABS: Absolute Lymphocyte Count 0.84 X10^3/ul (0.83-4.51); Absolute Neutrophil Count 16.4 X10^3/uL (2.0-7.7); Basophil# 0.02 X10^3/uL; Basophil% 0.1 % (0-1); Eosinophil# 0.02 X10^3/uL; Eosinophils% 0.1 % (0-5); Hematocrit 42.9 % (40-54); Hemoglobin 14.3 g/dl (13.0-16.5); Lymphocyte # 0.84 X10^3/ul (4.0); Lymphocyte % 4.4 % (19-41); Mean Corp Hgb Conc 33.3 g/gl (32-36); Mean Corpuscular Volume 93.1 fL (80-94); Mean Platelet Vol. 9.7 fl (6.2-12.0); Monocyte# 1.44 X10^3/uL; Monocyte% 7.5 % (0-10); Neutrophil # 16.41 X10^3/uL (2.7-7.7); Neutrophil % 85.7 % (47-70); Platelet Count 374 K/mm3 (150-450); RBC Distribution Width CV 13.1 % (11.6-14.6); RBC Distribution Width SD 44.2 fl (35.1-43.9); Red Blood Count 4.61 M/mm3 (4.6-6.2); White Blood Count 19.2 K/mm3 (4.4-11.0)
[2018-10-15 17:45] LABS: AST(SGOT) 15 U/L (15-37); Alanine Aminotransfer ALT/SGPT 19 U/L (16-61); Albumin, Serum 1.9 g/dL (3.2-5.0); Alkaline Phosphatase 85 U/L (45-117); Anion Gap 8 (5-15); BUN 22 mg/dL (7-18); BUN/Creat Ratio 30.4 RATIO (10-20); Bilirubin, Direct 0.15 mg/dL (0.00-0.30); Calcium,Total 7.6 mg/dL (8.5-10.1); Chloride 94 mmol/L (98-107); Creatinine, Serum 0.72 mg/dL (0.70-1.30); EST Glomerular Filtration Rate 117 mL/min (>60); Est Glom Filt Rate - Afr Amer 142 mL/min (>60); Estimated Creatinine Clearance 83.64 ml/min; Globulin 2.8 g/dL (2.2-4.2); Glucose 388 mg/dL (74-106); Lipase 206 U/L (73-393); Potassium 4.3 mmol/L (3.5-5.1); Protein, Total 4.7 g/dL (6.4-8.2); Sodium Level 130 mmol/L (136-145)
[2018-10-15 18:02] LABS: Anisocytosis 1+; Differential Indicated SCAN CRITERIA MET; POSITIVE COUNT YES; POSITIVE DIFFERENTIAL NO; POSITIVE MORPHOLOGY YES; Platelet Estimate ADEQUATE (ADEQ)
[2018-10-15 18:03] LABS: Red Cell Morphology N CHROM NORMAL (NORM C&C)
--- NOTE | 2018-10-15 18:10 | CT_ITS ---
STUDY: CT ABDOMEN AND PELVIS WITH CONTRAST REASON FOR EXAM: Male, 63 years old. Abdominal pain. RADIATION DOSAGE (If Supplied By Facility): CTDIvol = ( 11.25 ) mGy, DLP = ( 471.52 ) mGycm TECHNIQUE: Transaxial images were obtained from the dome of the diaphragm to the symphysis pubis without oral contrast. 100ML ml of Isovue 300 contrast was administered. Sagittal and coronal images were reconstructed. Individualized dose optimization techniques were used for this CT. COMPARISON: 10/07/2018 FINDINGS: There is a trace left pleural effusion with overlying atelectasis. The visualized portions of the heart and pericardium are within normal limits. There are no calcified gallstones present. There is stable mild biliary duct dilatation. The liver is within normal limits. There are no suspicious hepatic lesions. There are stable cysts noted in the spleen. The pancreas is within normal limits. The adrenal glands are within normal limits. There are no renal or ureteral stones. There is no hydronephrosis. There are no focal renal lesions. Normal visualized stomach. There is no bowel obstruction. There is bowel wall thickening throughout the small bowel which is consistent with enteritis. This is decreased when compared with the prior exam. The appendix is not visualized, but there are no findings to suggest acute appendicitis. The aorta is normal in caliber. There is a small amount of free fluid. There is no free air, fluid collection or lymphadenopathy. There are no destructive osseous lesions. CT/Abdomen/Pelvis W IV Cont ONLY IMPRESSION: Small bowel wall thickening which is consistent with enteritis. This is decreased when compared with the prior exam. Small amount of ascites. Stable mild biliary duct dilatation. Trace left pleural effusion with overlying atelectasis. Electronically Signed: Jayy Luna, at 19:01 EST Tel , Service support ,
[2018-10-15 19:08] LABS: Bacteria 0 SEEN /hpf (None Seen); Mucous, Urine 0 SEEN /hpf (<or=2+); Red Blood Cells-Urine 0 SEEN /hpf (0-5); White Blood Cells 0 SEEN /hpf (0-5)
[2018-10-15 19:12] LABS: Color, Urine Yellow (Yellow); Glucose, Dipstick 1000 mg/dl (Normal); Ketone-Dipstick 50 mg/dl (Negative); Leukocyte Esterase-Dipstick Negative /ul (Negative); Nitrite-Dipstick Negative (Negative); Occult Blood-Urine Negative /ul (Negative); Protein-Dipstick 15 mg/dl (Negative); Specific Gravity, Urine 1.015 (1.002-1.030); Urine Bilirubin Dipstick Negative (Negative); Urine Clarity Clear (Clear); Urine Urobilinogen Normal (Normal)
[2018-10-15 19:18] LABS: Squamous Epithelial Cells - UA 0-5 SEEN /hpf (0-5)
[2018-10-15 19:39] VITALS: BP 119/73; PULSE 84; RESP 14
--- NOTE | 2018-10-15 22:01 | ED.DEP ---
ED Disposition - Plan for ED Patient: Disposition: Home or Assisted Living Chief Complaint: Abd Pain Instructions: ED Gastroenteritis Viral Prescriptions: Ondansetron [Zofran Odt] 4 mg PO Q8H PRN PRN #10 tab PRN Reason: Nausea Referrals: Dada Kulkarni MD [Primary Care Provider] - 3-5 Days Tamie Fraser [NON-STAFF] - Additional Instructions: Watch blood sugars closely. May restart your metformin on Saturday. You have to hold it for 24 hours due to the CAT scan contrast. Plenty of fluids and rest. Zofran for nausea. Return if feeling worse. Follow-up with your doctor Call follow-up with a child psychology teacher as soon as possible and very concerned that skin lesion on your right arm could be some form of skin cancer.
--- NOTE | 2018-10-15 22:04 | DCINST.ED_ITS ---
ED Disposition - Plan for ED Patient: Disposition: Home or Assisted Living Chief Complaint: Abd Pain Instructions: ED Gastroenteritis Viral Prescriptions: Ondansetron [Zofran Odt] 4 mg PO Q8H PRN PRN #10 tab PRN Reason: Nausea Referrals: Dada Kulkarni MD [Primary Care Provider] - 3-5 Days Tamie Fraser [NON-STAFF] - Additional Instructions: Watch blood sugars closely. May restart your metformin on Saturday. You have to hold it for 24 hours due to the CAT scan contrast. Plenty of fluids and rest. Zofran for nausea. Return if feeling worse. Follow-up with your doctor Call follow-up with a fish net maker as soon as possible and very concerned that skin lesion on your right arm could be some form of skin cancer.
[2018-10-15] MEDS: Insulin Lispro 100 UNIT/ML INSULN.PEN 8 UNIT SC (22:12)
[2018-10-15 22:13] VITALS: BP 138/79; PULSE 93; RESP 16
--- NOTE | 2018-10-15 22:16 | ED.RN ---
PT INSTRUCTED TO TAKE GLUCOSE BEFORE BED AND EAT SNACK.
[2018-10-17 14:15] LABS: Pathologist Review Reviewed
== END 2018-10-15 22:16 | disposition home or self-care (01) ==
PROVIDERS: Emergency Provider Emergency Medicine; Family Provider Family Medicine; PCP Family Medicine
DX: K52.9 Noninfective gastroenteritis and colitis, unspecified (principal); R22.31 Localized swelling, mass and lump, right upper limb; E11.65 Type 2 diabetes mellitus with hyperglycemia; J44.9 Chronic obstructive pulmonary disease, unspecified; Z72.0 Tobacco use; Z79.84 Long term (current) use of oral hypoglycemic drugs; Z79.51 Long term (current) use of inhaled steroids; Z79.52 Long term (current) use of systemic steroids; Z79.891 Long term (current) use of opiate analgesic; Z79.899 Other long term (current) drug therapy
CPT/HCPCS: 74177; 80048; 80076; 81001; 83690; 85025; 96361; 96374; 96375; 99283; J7030; Q9967; A4216; J2405